=== PATIENT | male | born 1950 | race Caucasian/White ===

== ENCOUNTER 2020-03-10 14:12 | Outpatient (CLI) | payer MEDICARE, MEDICAID, SELFPAY ==
[2020-03-10 15:37] LABS: Basophils % 0.8 %; Eosinophils # 0.2 10^3/uL (0.0-0.8); Eosinophils % 5.3 %; Hematocrit 41.2 % (42.0-52.0); Hemoglobin 13.6 g/dL (11.7-16.6); Lymphocytes # 0.8 10^3/uL (0.8-4.8); Lymphocytes % 22.1 %; Mean Platelet Volume 9.7 fL (7.4-10.4); Monocytes # 0.3 10^3/uL (0.2-0.9); Neutrophils # 2.35 10^3/uL (1.8-7.7); Neutrophils % 62.5 %; Nucleated Red Blood Cells % 0 %; Platelet Count 194 10^3/cmm (130-400); Red Blood Count 4.12 10^6/uL (4.1-5.3); Red Cell Distribution Width 12.2 % (12.1-15.1); White Blood Count 3.8 10^3/uL (4.0-10.0)
[2020-03-10 16:42] LABS: Alanine Aminotransferase 11 U/L (0-41); Albumin Level 4.4 g/dL (3.5-5.2); Alkaline Phosphatase 76 IU/L (40-130); Anion Gap 15.9 (5-19); Aspartate Amino Transferase 33 U/L (0-40); Blood Urea Nitrogen 5 mg/dL (8-23); Calcium 8.7 mg/dL (8.5-10.5); Carbon Dioxide 26 mmol/L (22-29); Chloride 97 mmol/L (98-107); Globulin 2.8 g/dL (1.3-4.6); Glomerular Filtration Rate 84.2 mL/min (90-130); Glucose 88 mg/dL (65-115); Osmolality Calculated 275 mOsm/kg (285-295); Potassium 3.9 mmol/L (3.5-5.1); Sodium 135 mmol/L (136-145); Total Bilirubin 0.2 mg/dL (0.15-1.2); Total Protein 7.2 g/dL (6.6-8.7)
== END 2020-03-10 14:13 | disposition home or self-care (01) ==
LOC: LAB 14:17
PROVIDERS: Visit Provider Nurse Practitioner Family
DX: Z01.89 Encounter for other specified special examinations (principal)
CPT/HCPCS: 80053; 85025

== ENCOUNTER 2023-03-17 16:11 | Observation (INO) | payer MEDICARE, MEDICAID, SELFPAY ==
[2023-03-17] VITALS (42 sets, daily range): BP systolic 99–143; BP diastolic 60–90; PULSE 81–97; RESP 15–20; TEMP 36.2–37; O2SAT 88–100; BMI 13.8
--- NOTE | 2023-03-17 16:25 | XRR_ITS ---
PROCEDURE INFORMATION: Exam: XR Chest Exam date and time: 03/17/2023 5:14 PM Age: 72 years old Clinical indication: Shortness of breath; Additional info: SOB TECHNIQUE: Imaging protocol: Radiologic exam of the chest. Views: 1 view. COMPARISON: CR XR chest 1V [id number] 10/08/2016 10:06 AM FINDINGS: Lungs: Lungs are hyperinflated with changes of pulmonary emphysema. There is some interstitial infiltrate at the right lung base which could represent some superimposed infectious or inflammatory disease. Please correlate clinically. Pleural spaces: There are tiny bilateral pleural effusions. Heart/Mediastinum: Unremarkable. No cardiomegaly. Bones/joints: Unremarkable. XR/XR chest 1V portable [id number] IMPRESSION: 1. Pulmonary emphysema with hyperinflation of the lungs 2. Mild right basilar infiltrate 3. Small bilateral pleural effusions.
--- NOTE | 2023-03-17 16:28 | W.ED.GENADLT ---
Documented by User: Joaquin ArenasDO 03/17/23 18:08 HPI - General Adult General: Chief complaint: Shortness of Breath/Dyspnea Stated complaint: RESP DISTRESS Time Seen by Provider: 03/17/23 16:12 Source: patient and EMS Mode of arrival: EMS Limitations: no limitations History of Present Illness: This patient was transported via EMS to our emergency department. EMS gives a history that they were contacted by the fire control technician b. Apparently the fire control technician b and the computer security specialist's deputies have been checking on his gentleman who lives alone. The patient apparently does not have any air conditioning but does have fans within his house. Its not clear what he is heading to eat for the last 2 to 3 days or has access to drinking water. No one else lives in the home they called EMS today because they noted that he seemed to be less alert and less awake than usual. EMS arrived and found him to be cooperative and awake but clearly showing signs of dehydration however his blood sugar was in the normal range. The patient specifically denies alcohol or tobacco. He does have COPD and does apparently have home oxygen. He has never been seen at this facility previously. Associated symptoms: Reports confusion; Deny chest pain, dyspnea, nausea, rash, palpitations, syncope or vomiting Review of Systems Const: Denies: fever(s) or chills Eyes: Denies: change in vision ENMT: Denies: throat pain, odynophagia or nasal congestion Card: Denies: chest pain, palpitations, syncope or pre-syncope Resp: Reports: non-productive cough; Denies: dyspnea, productive cough or stridor GI: Denies: nausea, vomiting, diarrhea, hematochezia or melena : Reports: oliguria Musc: Denies: back pain, extremity pain or extremity swelling Skin/Breast: Denies: rash Neuro: Reports: confusion; Denies: numbness in extremities or weakness in extremities Physical Exam Narrative: EXAM NARRATIVE: The patient is alert very disheveled and unkept. Very thin appearing he does answer questions. Const: COMMON NORMALS: patient oriented x3 and alert GENERAL APPEARANCE: disheveled and appears older than stated age NUTRITIONAL APPEARANCE: thin ORIENTATION/CONSCIOUSNESS: Yes awake, Yes oriented to person and Yes oriented to place HENMT: COMMON NORMALS: atraumatic and Normal nasal mucous membranes and turbinates present HEAD & SCALP: atraumatic FACE & SINUS: face symmetric NOSE: Normal nasal mucous membranes and turbinates present OTHER: Mucous membranes are erythematous and very dry. No exudate. Eye: COMMON NORMALS: Equal, round and reactive pupils present, EOMs intact bilaterally and conjunctivae normal CONJUNCTIVA: Yes conjunctivae normal PUPIL: Yes Equal, round and reactive pupils present Neck/C-Spine: COMMON NORMALS: full ROM, supple, no JVD and No carotid bruits Chest: COMMONS NORMALS: normal inspection of the chest and normal palpation of entire chest wall Resp: COMMON NORMALS: normal respiratory effort, No retractions and No use of accessory muscles AUSCULTATION: diminished lung sounds (Bases bilaterally) Cardio: COMMON NORMALS: no JVD, regular rate, regular rhythm and Peripheral pulses 2+ throughout RATE: regular rate RHYTHM: regular rhythm PERIPHERAL PULSES: Peripheral pulses 2+ throughout GI: COMMON NORMALS: Normal to inspection, nondistended, normoactive bowel sounds present, Soft to palpation and non-tender INSPECTION: Yes scaphoid PALPATION: Yes Soft to palpation : COMMON NORMALS: Yes no CVA tenderness BLADDER/KIDNEY EXAM: Yes no CVA tenderness Back/Pelvis: COMMON NORMALS: no CVA tenderness, thoracic and lumbar spine normal to inspection, no thoracic nor lumbar tenderness, thoraco-lumbar ROM normal and straight leg raise negative bilaterally Extremity: COMMON NORMALS: normal to inspection, capillary refill normal, no calf tenderness and no pedal edema Neuro: COMMON NORMALS: patient oriented x3, moves all extremities and no sensory deficits noted SENSORIUM/ORIENTATION: Yes alert, Yes oriented to person and Yes oriented to place CRANIAL NERVES: Yes CN normal except as noted Psych: COMMON NORMALS: mental status grossly normal APPEARANCE: Yes unkempt and Yes disheveled ATTITUDE: Yes calm ACTIVITY/MOTOR BEHAVIOR: Yes appropriate eye contact THOUGHT PROCESS: Tangential thought process present Skin: NARRATIVE SKIN EXAM: Decreased skin turgor. 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 Course Reevaluation(s): Reevaluation #1: Remained stable work-up ongoing. The patient will be signed out to overnight emergency physician Dr. Gimenez. Time: 17:59 Vital Signs: Vital signs: Vital Signs Temperature 97.1 F L 03/17/23 17:50 Pulse Rate 84 03/17/23 20:16 Respiratory Rate 16 03/17/23 20:16 Blood Pressure 123/90 03/17/23 19:22 Pulse Oximetry 97 03/17/23 20:16 Oxygen Delivery Me thod Nasal Cannula 03/17/23 20:16 Oxygen Flow Rate 4 03/17/23 20:16 MDM - General Adult Medical Decision Making This gentleman was transported to the emergency department from by EMS. Local fire control technician b and Automotive Brake Specialist have been checking on him and noted that he seemed to be a little more confused today. He apparently lives in a home that has no air conditioning but apparently does have fans. He apparently has limited access to running water and has no family members that live close by as he lives by himself. EMS transported in the emergency department. He was noted to be extremely disheveled odiferous and unkept upon arrival. He received the benefit of general cleaning and a shower and we began a work-up to evaluate for possible rhabdomyolysis, occult infection etc. Lab Data I reviewed the patient's lab results. 03/17/23 17:12 03/17/23 17:12 Radiology Impressions Chest X-Ray 03/17/23 16:25 IMPRESSION: 1. Pulmonary emphysema with hyperinflation of the lungs 2. Mild right basilar infiltrate 3. Small bilateral pleural effusions. Head CT 03/17/23 18:07 IMPRESSION: No acute intracranial finding. Laboratory Results WBC 19.3 10^3/uL (4.0-10.0) H 03/17/23 17:12 RBC 4.84 10^6/uL (4.1-5.3) 03/17/23 17:12 Hgb 15.5 g/dL (11.7-16.6) 03/17/23 17:12 Hct 48.0 % (42.0-52.0) 03/17/23 17:12 MCV 99.2 fl (80-94) H 03/17/23 17:12 MCH 32.0 pg (28.0-34.0) 03/17/23 17:12 MCHC 32.3 g/dL (30.0-36.0) 03/17/23 17:12 RDW 12.6 % (12.1-15.1) 03/17/23 17:12 Plt Count 294 10^3/cmm (130-400) 03/17/23 17:12 MPV 9.6 fL (7.4-10.4) 03/17/23 17:12 Neut % (Auto) 90.0 % 03/17/23 17:12 Lymph % (Auto) 2.5 % 03/17/23 17:12 [place] % (Auto) 6.8 % 03/17/23 17:12 Eos % (Auto) 0.0 % 03/17/23 17:12 Baso % (Auto) 0.1 % 03/17/23 17:12 Neut # (Auto) 17.34 10^3/uL (1.8-7.7) H 03/17/23 17:12 Lymph # (Auto) 0.5 10^3/uL (0.8-4.8) L 03/17/23 17:12 [place] # (Auto) 1.3 10^3/uL (0.2-0.9) H 03/17/23 17:12 Eos # (Auto) 0.0 10^3/uL (0.0-0.8) 03/17/23 17:12 Baso # (Auto) 0.0 10^3/uL (0.0-0.1) 03/17/23 17:12 Nucleated RBC % (auto) 0 % 03/17/23 17:12 Nucleated RBCs # 0.0 /100WBC 03/17/23 17:12 Specimen Type Arterial 03/17/23 18:17 Sample Site Radial, left 03/17/23 18:17 ABG pH 7.34 (7.35-7.45) L 03/17/23 18:17 ABG pCO2 55.6 mmHg (35-45) H 03/17/23 18:17 ABG pO2 112.0 mmHg (80.0-100.0) H 03/17/23 18:17 ABG HCO3 29.6 mmol/L (22-26) H 03/17/23 18:17 ABG O2 Saturation 98.5 03/17/23 18:17 ABG Base Excess 2.4 mmol/L (-2.0-2.0) H 03/17/23 18:17 Shalom Test Pos 03/17/23 18:17 A-a O2 Gradient 9.9 mmHg (5-10) 03/17/23 18:17 Hematocrit 41.8 % (42-52) L 03/17/23 18:17 Hgb O2 Saturation 96.4 % (95-100) 03/17/23 18:17 Carboxyhemoglobin 1.8 %THgb (0.4-20.1) 03/17/23 18:17 Methemoglobin 0.4 % (0.4-1.5) 03/17/23 18:17 Total Hemoglobin 13.6 g/dL (14-18) L 03/17/23 18:17 Sodium 136.0 mmol/L (131-143) 03/17/23 18:17 Potassium 4.8 mmol/L (3.5-5.0) 03/17/23 18:17 Glucose 86.0 mg/dL (70-115) 03/17/23 18:17 Ionized Calcium 1.2 mmol/L (1.1-1.4) 03/17/23 18:17 O2 Delivery Device Nc 03/17/23 18:17 O2 Liters/Min 4.0 % 03/17/23 18:17 FiO2 36.0 % 03/17/23 18:17 Inspector Type ID Cak 03/17/23 18:17 Sodium 134 mmol/L (136-145) L 03/17/23 17:12 Potassium 5.2 mmol/L (3.5-5.1) H 03/17/23 17:12 Chloride 94 mmol/L (98-107) L 03/17/23 17:12 Carbon Dioxide 31 mmol/L (22-29) H 03/17/23 17:12 Anion Gap 14.2 (5-19) 03/17/23 17:12 BUN 74 mg/dL (8-23) H 03/17/23 17:12 Creatinine 1.6 mg/dL (0.7-1.2) H 03/17/23 17:12 GFR Calculation 42.9 mL/min (90-130) L 03/17/23 17:12 Glucose 84 mg/dL (65-115) 03/17/23 17:12 Calculated Osmolality 299 mOsm/kg (285-295) H 03/17/23 17:12 Lactic Acid 1.2 mmol/L (0.5-2.2) 03/17/23 18:43 Calcium 9.0 mg/dL (8.5-10.5) 03/17/23 17:12 Total Bilirubin 0.7 mg/dL (0.15-1.2) 03/17/23 17:12 AST 48 U/L (0-40) H 03/17/23 17:12 ALT 30 U/L (0-41) 03/17/23 17:12 Alkaline Phosphatase 118 U/L (40-130) 03/17/23 17:12 Creatine Kinase 224 U/L (39-308) 03/17/23 17:12 CK-MM (CK-3) Cancelled 03/17/23 17:12 CK-MB (CK-2) Cancelled 03/17/23 17:12 CK-BB (CK-1) Cancelled 03/17/23 17:12 Creatine Kinase Interp Cancelled 03/17/23 17:12 Total Protein 7.7 g/dL (6.6-8.7) 03/17/23 17:12 Albumin 3.3 g/dL (3.5-5.2) L 03/17/23 17:12 Globulin 4.4 g/dL (1.3-4.6) 03/17/23 17:12 Urine Color Arin (Yellow) 03/17/23 16:53 Urine Appearance Clear (CLEAR) 03/17/23 16:53 Urine pH 5 (5-7) 03/17/23 16:53 Ur Specific [place] 1.020 (1.005-1.030) 03/17/23 16:53 Urine Protein Trace (Negative) 03/17/23 16:53 Urine Glucose (UA) Norm (Normal) 03/17/23 16:53 Urine Ketones Negative (Negative) 03/17/23 16:53 Urine Blood Neg (Negative) 03/17/23 16:53 Urine Nitrate Negative (Negative) 03/17/23 16:53 Urine Bilirubin Neg (Negative) 03/17/23 16:53 Urine Urobilinogen 1 mg/dL (Negative) H 03/17/23 16:53 Ur Leukocyte Esterase Negative (Negative) 03/17/23 16:53 Urine RBC None /hpf (0-2) 03/17/23 16:53 Urine WBC 0-4 /hpf (0-5) H 03/17/23 16:53 Ur Squamous Epith Cells None /hpf (0-5) 03/17/23 16:53 Amorphous Sediment Not Reportable 03/17/23 16:53 Urine Bacteria Trace /hpf (NONE) 03/17/23 16:53 Hyaline Casts 5-10 /lpf H 03/17/23 16:53 Discharge Plan Discharge Patient Disposition: Placed in Observation Clinical Impression: Acute exacerbation of chronic obstructive airways disease, Community acquired pneumonia, Acute dehydration, Acute and chronic respiratory failure with hypercapnia Condition: Stable Coding Level of Care Code ED Nurses' Association Counselor for Niki Fwd Documented by User: Josiah Gimenez, DO 03/17/23 20:21 HPI - General Adult General: Chief complaint: Shortness of Breath/Dyspnea Stated complaint: RESP DISTRESS Time Seen by Provider: 03/17/23 16:12 Course Consultations: Consultation #1: Adonis Vital Signs: Vital signs: Vital Signs Temperature 97.1 F L 03/17/23 17:50 Pulse Rate 84 03/17/23 20:16 Respiratory Rate 16 03/17/23 20:16 Blood Pressure 123/90 03/17/23 19:22 Pulse Oximetry 97 03/17/23 20:16 Oxygen Delivery Me thod Nasal Cannula 03/17/23 20:16 Oxygen Flow Rate 4 03/17/23 20:16 MDM - General Adult Medical Decision Making This gentleman was transported to the emergency department from by EMS. Local fire control technician b and Automotive Brake Specialist have been checking on him and noted that he seemed to be a little more confused today. He apparently lives in a home that has no air conditioning but apparently does have fans. He apparently has limited access to running water and has no family members that live close by as he lives by himself. EMS transported in the emergency department. He was noted to be extremely disheveled odiferous and unkept upon arrival. He received the benefit of general cleaning and a shower and we began a work-up to evaluate for possible rhabdomyolysis, occult infection etc. This patient was checked out to me at shift change by the previous physician. He is afebrile. His vitals seem stable on 4 L nasal cannula. He is mildly confused. His white blood cell count is 19. His potassium is 5.2 creatinine of 1.6. He is given IV hydration. He has a mild right basilar infiltrate on chest x-ray. Lactic acid is normal. Blood cultures are pending. Urinalysis is negative. His CK is normal. Head CT shows no acute changes. Blood pH is 7.34 with an elevated PCO2. The patient does not seem to be struggling to breathe. He was given DuoNeb treatments and dexamethasone as well as IV antibiotics. He will be observed for acute kidney injury, pneumonia, dehydration, hyperkalemia. Hospitalist will see the patient in the ER. Lab Data 03/17/23 17:12 03/17/23 17:12 Radiology Impressions Chest X-Ray 03/17/23 16:25 IMPRESSION: 1. Pulmonary emphysema with hyperinflation of the lungs 2. Mild right basilar infiltrate 3. Small bilateral pleural effusions. Head CT 03/17/23 18:07 IMPRESSION: No acute intracranial finding. Laboratory Results WBC 19.3 10^3/uL (4.0-10.0) H 03/17/23 17:12 RBC 4.84 10^6/uL (4.1-5.3) 03/17/23 17:12 Hgb 15.5 g/dL (11.7-16.6) 03/17/23 17:12 Hct 48.0 % (42.0-52.0) 03/17/23 17:12 MCV 99.2 fl (80-94) H 03/17/23 17:12 MCH 32.0 pg (28.0-34.0) 03/17/23 17:12 MCHC 32.3 g/dL (30.0-36.0) 03/17/23 17:12 RDW 12.6 % (12.1-15.1) 03/17/23 17:12 Plt Count 294 10^3/cmm (130-400) 03/17/23 17:12 MPV 9.6 fL (7.4-10.4) 03/17/23 17:12 Neut % (Auto) 90.0 % 03/17/23 17:12 Lymph % (Auto) 2.5 % 03/17/23 17:12 [place] % (Auto) 6.8 % 03/17/23 17:12 Eos % (Auto) 0.0 % 03/17/23 17:12 Baso % (Auto) 0.1 % 03/17/23 17:12 Neut # (Auto) 17.34 10^3/uL (1.8-7.7) H 03/17/23 17:12 Lymph # (Auto) 0.5 10^3/uL (0.8-4.8) L 03/17/23 17:12 [place] # (Auto) 1.3 10^3/uL (0.2-0.9) H 03/17/23 17:12 Eos # (Auto) 0.0 10^3/uL (0.0-0.8) 03/17/23 17:12 Baso # (Auto) 0.0 10^3/uL (0.0-0.1) 03/17/23 17:12 Nucleated RBC % (auto) 0 % 03/17/23 17:12 Nucleated RBCs # 0.0 /100WBC 03/17/23 17:12 Specimen Type Arterial 03/17/23 18:17 Sample Site Radial, left 03/17/23 18:17 ABG pH 7.34 (7.35-7.45) L 03/17/23 18:17 ABG pCO2 55.6 mmHg (35-45) H 03/17/23 18:17 ABG pO2 112.0 mmHg (80.0-100.0) H 03/17/23 18:17 ABG HCO3 29.6 mmol/L (22-26) H 03/17/23 18:17 ABG O2 Saturation 98.5 03/17/23 18:17 ABG Base Excess 2.4 mmol/L (-2.0-2.0) H 03/17/23 18:17 Shalom Test Pos 03/17/23 18:17 A-a O2 Gradient 9.9 mmHg (5-10) 03/17/23 18:17 Hematocrit 41.8 % (42-52) L 03/17/23 18:17 Hgb O2 Saturation 96.4 % (95-100) 03/17/23 18:17 Carboxyhemoglobin 1.8 %THgb (0.4-20.1) 03/17/23 18:17 Methemoglobin 0.4 % (0.4-1.5) 03/17/23 18:17 Total Hemoglobin 13.6 g/dL (14-18) L 03/17/23 18:17 Sodium 136.0 mmol/L (131-143) 03/17/23 18:17 Potassium 4.8 mmol/L (3.5-5.0) 03/17/23 18:17 Glucose 86.0 mg/dL (70-115) 03/17/23 18:17 Ionized Calcium 1.2 mmol/L (1.1-1.4) 03/17/23 18:17 O2 Delivery Device Nc 03/17/23 18:17 O2 Liters/Min 4.0 % 03/17/23 18:17 FiO2 36.0 % 03/17/23 18:17 Inspector Type ID Cak 03/17/23 18:17 Sodium 134 mmol/L (136-145) L 03/17/23 17:12 Potassium 5.2 mmol/L (3.5-5.1) H 03/17/23 17:12 Chloride 94 mmol/L (98-107) L 03/17/23 17:12 Carbon Dioxide 31 mmol/L (22-29) H 03/17/23 17:12 Anion Gap 14.2 (5-19) 03/17/23 17:12 BUN 74 mg/dL (8-23) H 03/17/23 17:12 Creatinine 1.6 mg/dL (0.7-1.2) H 03/17/23 17:12 GFR Calculation 42.9 mL/min (90-130) L 03/17/23 17:12 Glucose 84 mg/dL (65-115) 03/17/23 17:12 Calculated Osmolality 299 mOsm/kg (285-295) H 03/17/23 17:12 Lactic Acid 1.2 mmol/L (0.5-2.2) 03/17/23 18:43 Calcium 9.0 mg/dL (8.5-10.5) 03/17/23 17:12 Total Bilirubin 0.7 mg/dL (0.15-1.2) 03/17/23 17:12 AST 48 U/L (0-40) H 03/17/23 17:12 ALT 30 U/L (0-41) 03/17/23 17:12 Alkaline Phosphatase 118 U/L (40-130) 03/17/23 17:12 Creatine Kinase 224 U/L (39-308) 03/17/23 17:12 CK-MM (CK-3) Cancelled 03/17/23 17:12 CK-MB (CK-2) Cancelled 03/17/23 17:12 CK-BB (CK-1) Cancelled 03/17/23 17:12 Creatine Kinase Interp Cancelled 03/17/23 17:12 Total Protein 7.7 g/dL (6.6-8.7) 03/17/23 17:12 Albumin 3.3 g/dL (3.5-5.2) L 03/17/23 17:12 Globulin 4.4 g/dL (1.3-4.6) 03/17/23 17:12 Urine Color Arin (Yellow) 03/17/23 16:53 Urine Appearance Clear (CLEAR) 03/17/23 16:53 Urine pH 5 (5-7) 03/17/23 16:53 Ur Specific [place] 1.020 (1.005-1.030) 03/17/23 16:53 Urine Protein Trace (Negative) 03/17/23 16:53 Urine Glucose (UA) Norm (Normal) 03/17/23 16:53 Urine Ketones Negative (Negative) 03/17/23 16:53 Urine Blood Neg (Negative) 03/17/23 16:53 Urine Nitrate Negative (Negative) 03/17/23 16:53 Urine Bilirubin Neg (Negative) 03/17/23 16:53 Urine Urobilinogen 1 mg/dL (Negative) H 03/17/23 16:53 Ur Leukocyte Esterase Negative (Negative) 03/17/23 16:53 Urine RBC None /hpf (0-2) 03/17/23 16:53 Urine WBC 0-4 /hpf (0-5) H 03/17/23 16:53 Ur Squamous Epith Cells None /hpf (0-5) 03/17/23 16:53 Amorphous Sediment Not Reportable 03/17/23 16:53 Urine Bacteria Trace /hpf (NONE) 03/17/23 16:53 Hyaline Casts 5-10 /lpf H 03/17/23 16:53 Discharge Plan Discharge Patient Disposition: Placed in Observation Clinical Impression: Acute exacerbation of chronic obstructive airways disease, Community acquired pneumonia, Acute dehydration, Acute and chronic respiratory failure with hypercapnia Condition: Stable Coding Level of Care Code ED Nurses' Association Counselor for Niki Urrutia
[2023-03-17] MEDS: lactated ringers 1,000 ML 999 ML IV (17:21)
[2023-03-17 17:22] LABS: Basophils % 0.1 %; Hemoglobin 15.5 g/dL (11.7-16.6); Lymphocytes # 0.5 10^3/uL (0.8-4.8); Lymphocytes % 2.5 %; Mean Corpuscular HGB Conc 32.3 g/dL (30.0-36.0); Mean Corpuscular Volume 99.2 fl (80-94); Mean Platelet Volume 9.6 fL (7.4-10.4); Monocytes # 1.3 10^3/uL (0.2-0.9); Monocytes % 6.8 %; Neutrophils # 17.34 10^3/uL (1.8-7.7); Nucleated Red Blood Cells % 0 %; Platelet Count 294 10^3/cmm (130-400); Red Blood Count 4.84 10^6/uL (4.1-5.3); Red Cell Distribution Width 12.6 % (12.1-15.1); White Blood Count 19.3 10^3/uL (4.0-10.0)
--- NOTE | 2023-03-17 18:01 | PC.NURSE ---
Pt was given a shower in the decon room by this RN and staff. Pt's wallet, phone, knife, keys, and loose pocket change and recipts were put in a bag and in patient's room. Pt placed in clean gown, brief, and socks.
[2023-03-17 18:06] LABS: Protein Urine Trace (Negative); Urine Appearance Clear (CLEAR); Urine Color Amber (Yellow); pH Urine 5 (5-7)
[2023-03-17 18:06] LABS: Alanine Aminotransferase 30 U/L (0-41); Albumin Level 3.3 g/dL (3.5-5.2); Alkaline Phosphatase 118 U/L (40-130); Anion Gap 14.2 (5-19); Aspartate Amino Transferase 48 U/L (0-40); Blood Urea Nitrogen 74 mg/dL (8-23); Carbon Dioxide 31 mmol/L (22-29); Chloride 94 mmol/L (98-107); Globulin 4.4 g/dL (1.3-4.6); Glomerular Filtration Rate 42.9 mL/min (90-130); Glucose 84 mg/dL (65-115); Osmolality Calculated 299 mOsm/kg (285-295); Potassium 5.2 mmol/L (3.5-5.1); Sodium 134 mmol/L (136-145); Total Bilirubin 0.7 mg/dL (0.15-1.2); Total Protein 7.7 g/dL (6.6-8.7)
[2023-03-17 18:07] LABS: Add Urine Culture? No; Add Urine Microscopic? YES; Bacteria Urine TRACE /hpf; Bilirubin Urine Neg (Negative); Blood Urine Neg (Negative); Glucose Urine UA Norm (Normal); Ketones Urine Negative (Negative); Leukocyte Esterase Urine Negative (Negative); Nitrate Urine Negative (Negative); Urobilinogen Urine 1 mg/dL (Negative); WBC Urine 0-4 /hpf (0-5)
--- NOTE | 2023-03-17 18:07 | CTR_ITS ---
PROCEDURE INFORMATION: Exam: CT Head Without Contrast Exam date and time: 03/17/2023 7:07 PM Age: 72 years old Clinical indication: Altered mental status/memory loss; Patient HX: Lethargy; Additional info: AMS TECHNIQUE: Imaging protocol: Computed tomography of the head without contrast. Radiation optimization: All CT scans at this facility use at least one of these dose optimization techniques: automated exposure control; mA and/or kV adjustment per patient size (includes targeted exams where dose is matched to clinical indication); or iterative reconstruction. REPORTING DATA: Count of CT and Cardiac NM exams in prior 12 months: This patient has received 0 known CTs and 0 known cardiac nuclear medicine studies in the 12 months prior to the current study. COMPARISON: No relevant prior studies available. RADIATION DOSE METRICS: Total DLP (mGy-cm): 1015.78 FINDINGS: Brain: There is moderate cortical atrophy. Low-density changes in the white matter are consistent with nonspecific small vessel chronic ischemic change. There is no intracranial mass, hemorrhage or edema. Cerebral ventricles: No ventriculomegaly. Paranasal sinuses: Visualized sinuses are unremarkable. No fluid levels. Mastoid air cells: Visualized mastoid air cells are well aerated. Bones/joints: Unremarkable. No acute fracture. Soft tissues: Unremarkable. CT/CT head wo con* [id number] IMPRESSION: No acute intracranial finding.
[2023-03-17 18:19] LABS: Creatine Phosphokinase 224 U/L (39-308)
--- NOTE | 2023-03-17 18:20 | ECG_ITS ---
[facility] Test Date: 2023-03-17 Pat Name: Yong Small Department: Room: Gender: Male Doughmaker: : 1950 Requested By: Joaquin Arenas Order Number: [id number] Shepherd MD: Gabriela Valenzuela M.D. Measurements Intervals [place] Rate: 88 P: 0 HI: 0 QRS: 89 QRSD: 76 T: -67 QT: 383 QTc: 464 Interpretive Statements SINUS RHYTHM WITH FREQUENT SUPRAVENTRICULAR PREMATURE COMPLEXES ST DEVIATION AND MODERATE T-WAVE ABNORMALITY, CONSIDER ANTERIOR ISCHEMIA [-0.1+ mV T-WAVE IN V3/V4] Compared to ECG 10/08/2016 10:04:39 T-wave abnormality now present Possible ischemia now present Sinus arrhythmia no longer present Prolonged QT interval no longer present Electronically Signed On 03-19-2023 6:47:02 CDT by Gabriela Valenzuela M.D. [id number]
[2023-03-17 18:28] LABS: ABG PCO2 55.6 mmHg (35-45); ABG PH Result 7.34 (7.35-7.45); Alveolar-Arterial Oxygen Gradi 9.9 mmHg (5-10); Arterial Blood Gas Hematocrit 41.8 % (42-52); Base Excess ABG 2.4 mmol/L (-2.0-2.0); Blood Gas Allen Test Pos; Blood Gas Operator Identificat CAK; Blood Gas Sample Site Radial, left; Blood Gas Sample Type Arterial; Carboxyhemoglobin 1.8 %THgb (0.4-20.1); HCO3 ABG 29.6 mmol/L (22-26); HGB O2 Sat 96.4 % (95-100); Ionized Calcium Level - ABG 1.2 mmol/L (1.1-1.4); Methemoglobin 0.4 % (0.4-1.5); Oxygen Device NC; Oxygen Saturation ABG 98.5; Potassium Level - ABG 4.8 mmol/L (3.5-5.0); Total Hemoglobin 13.6 g/dL (14-18)
[2023-03-17] MEDS: cefTRIAXone 1,000 MG in sodium chloride 0.9% (plus) 50 ML 100 MG IV (19:18)
[2023-03-17 19:39] LABS: Lactic Sepsis W/Reflex 1.2 mmol/L (0.5-2.2)
[2023-03-17] MEDS: dexamethasone 10 mg/mL INJ IVP (19:49)
[2023-03-17] MEDS: azithromycin 500 MG in sodium chloride 0.9% 250 ML 250 MG IV (19:49)
--- NOTE | 2023-03-17 20:01 | P.HP_ITS ---
Providers/Chief Complaint Admitting Physician: Alma Lamb MD Primary Care Provider: APARNA Brasher Chief Complaint: RESP DISTRESS History of Present Illness Yong Small is a 72 year old male who was brought to the emergency room by EMS for confusion and difficulty breathing. Mr. Samll lives alone evidently on a property that does not have running water. The Trust Vault Clerk in the area lives near him and takes him water regularly and checks on him frequently as has been told to me particularly in time such as the last couple of days when it is really hot out. The [employer] Clerk and noted that he did not drink any of the water that he been given the day before and knew that something was not right. The broadcast operations technician's department was contacted for welfare check. Evidently when they arrived he was not as alert as he usually is and seem to be having difficulty breathing. He clinically looked dehydrated. He has known COPD and is on home oxygen. I admitted him back in 2017 here and was able to review records from then. They were primarily notable for COPD exacerbation, and echocardiogram showing an ejection fraction of 65% with grade 1/4 diastolic dysfunction and an unclear social situation at the time. He reports feeling cold and feverish. He has had a cough and difficulty breathing. No report of any chest pain but does describe aching all over. Getting specifics of history is difficult at this time. He seems to know who he is and I think where he is but not why he is here. Patient is on oxygen at home with an oxygen concentrator. From the information that was provided to me the oxygen concentrator was not working appropriately. He does have electricity for the oxygen concentrator. It sounds like he may not of had oxygen on when he was evaluated at his home. Review of Systems General: Reports: Other (ROS as per HPI or as otherwise noted here; limited by current confusion) Medications/Allergies Home Medications Medication Instructions Recorded Confirmed Last Taken Type albuterol sulfate 90 mcg/actuation 2 puff inhalation Q4H PRN 03/18/23 03/18/23 Unknown History aerosol inhaler (Ventolin HFA) Shortness Of Breath budesonide-formoterol HFA 160 2 puff inhalation BID 03/18/23 03/18/23 Unknown History mcg-4.5 mcg/actuation aerosol inhaler (Symbicort) cetirizine 10 mg tablet 10 mg PO DAILY 03/18/23 03/18/23 Unknown History ipratropium 20 mcg-albuterol 100 1 puff inhalation QID PRN 03/18/23 03/18/23 Unknown History mcg/actuation mist for inhalation Shortness Of Breath (Combivent Respimat) omeprazole 20 mg capsule,delayed 20 mg PO DAILY 03/18/23 03/18/23 Unknown History release potassium chloride 8 mEq 8 meq PO DAILY 03/18/23 03/18/23 Unknown History capsule,extended release tiotropium bromide 18 mcg capsule 1 cap inhalation DAILY 03/18/23 03/18/23 Unknown History with inhalation device (Spiriva with HandiHaler) Allergies Allergy/AdvReac Type Severity Reaction Status Date / Time No Known Allergies Allergy Verified 03/17/23 20:48 PFSH Acute PFSH: Medical History COPD (chronic obstructive pulmonary disease) History of echocardiogram 2017 EF 65%, grade I/IV diastolic dysfunction History of smoking Surgical History (Updated 03/18/23 @ 04:01 by Alma Lamb MD) No history of previous surgery Family History (Updated 03/18/23 @ 04:01 by Alma Lamb MD) Mother CAD (coronary artery disease) Social History (Updated 03/18/23 @ 04:18 by Alma Lamb MD) Smoking and tobacco status: former smoker Alcohol intake: unknown Substance/Drug Use: unknown Household members: none Additional social history: Lives in a house without running water, a neighbor brings him water. He has electricity. Vitals/I&O/Wt Last Vital Signs Temp 97.1 F L 03/17/23 17:50 Pulse 91 03/17/23 19:22 Resp 18 03/17/23 19:22 BP 123/90 03/17/23 19:22 Pulse Ox 92 03/17/23 19:22 O2 Del Method Nasal Cannula 03/17/23 19:22 O2 Flow Rate 4 03/17/23 19:22 03/17/23 03/17/23 03/17/23 06:59 14:59 22:59 Intake Total 1050 / 1050 Balance 1050 / 1050 Weight last 48 hrs Weight 41.277 kg Physical Exam 2 Narrative: Patient is asleep, arousable. He answers simple questions but not able to provide detailed answers. Oriented to person and I believe to place but not to situation. He has a thin build. Some bitemporal wasting is noted. Pupils are equally reactive. Oropharynx with dry mucous membranes. Neck is supple. Lungs are remarkable for some expiratory wheezes bilaterally, mild supraclavicular retractions, pursed lips. Breath sounds are decreased at both bases. No rhonchi are noted. Cardiovascular exam reveals a regular rate and rhythm. Puls es are 2+ and equal x4. Abdomen is soft, positive bowel sounds. No pitting edema. Patient is tender to touch wherever you touch them. Capillary refill is brisk. He has various minor sores in different stages of healing predominantly on extensor surfaces. No involuntary movements noted. Moves all extremities. Data 03/17/23 17:12 03/17/23 17:12 Other Labs: Radiology Impressions Chest X-Ray 03/17/23 16:25 IMPRESSION: 1. Pulmonary emphysema with hyperinflation of the lungs 2. Mild right basilar infiltrate 3. Small bilateral pleural effusions. Head CT 03/17/23 18:07 IMPRESSION: No acute intracranial finding. Laboratory Results WBC 19.3 10^3/uL (4.0-10.0) H 03/17/23 17:12 RBC 4.84 10^6/uL (4.1-5.3) 03/17/23 17:12 Hgb 15.5 g/dL (11.7-16.6) 03/17/23 17:12 Hct 48.0 % (42.0-52.0) 03/17/23 17:12 MCV 99.2 fl (80-94) H 03/17/23 17:12 MCH 32.0 pg (28.0-34.0) 03/17/23 17:12 MCHC 32.3 g/dL (30.0-36.0) 03/17/23 17:12 RDW 12.6 % (12.1-15.1) 03/17/23 17:12 Plt Count 294 10^3/cmm (130-400) 03/17/23 17:12 MPV 9.6 fL (7.4-10.4) 03/17/23 17:12 Neut % (Auto) 90.0 % 03/17/23 17:12 Lymph % (Auto) 2.5 % 03/17/23 17:12 Bell % (Auto) 6.8 % 03/17/23 17:12 Eos % (Auto) 0.0 % 03/17/23 17:12 Baso % (Auto) 0.1 % 03/17/23 17:12 Neut # (Auto) 17.34 10^3/uL (1.8-7.7) H 03/17/23 17:12 Lymph # (Auto) 0.5 10^3/uL (0.8-4.8) L 03/17/23 17:12 Bell # (Auto) 1.3 10^3/uL (0.2-0.9) H 03/17/23 17:12 Eos # (Auto) 0.0 10^3/uL (0.0-0.8) 03/17/23 17:12 Baso # (Auto) 0.0 10^3/uL (0.0-0.1) 03/17/23 17:12 Nucleated RBC % (auto) 0 % 03/17/23 17:12 Nucleated RBCs # 0.0 /100WBC 03/17/23 17:12 Specimen Type Arterial 03/17/23 18:17 Sample Site Radial, left 03/17/23 18:17 ABG pH 7.34 (7.35-7.45) L 03/17/23 18:17 ABG pCO2 55.6 mmHg (35-45) H 03/17/23 18:17 ABG pO2 112.0 mmHg (80.0-100.0) H 03/17/23 18:17 ABG HCO3 29.6 mmol/L (22-26) H 03/17/23 18:17 ABG O2 Saturation 98.5 03/17/23 18:17 ABG Base Excess 2.4 mmol/L (-2.0-2.0) H 03/17/23 18:17 Shalom Test Pos 03/17/23 18:17 A-a O2 Gradient 9.9 mmHg (5-10) 03/17/23 18:17 Hematocrit 41.8 % (42-52) L 03/17/23 18:17 Hgb O2 Saturation 96.4 % (95-100) 03/17/23 18:17 Carboxyhemoglobin 1.8 %THgb (0.4-20.1) 03/17/23 18:17 Methemoglobin 0.4 % (0.4-1.5) 03/17/23 18:17 Total Hemoglobin 13.6 g/dL (14-18) L 03/17/23 18:17 Sodium 136.0 mmol/L (131-143) 03/17/23 18:17 Potassium 4.8 mmol/L (3.5-5.0) 03/17/23 18:17 Glucose 86.0 mg/dL (70-115) 03/17/23 18:17 Ionized Calcium 1.2 mmol/L (1.1-1.4) 03/17/23 18:17 O2 Delivery Device Nc 03/17/23 18:17 O2 Liters/Min 4.0 % 03/17/23 18:17 FiO2 36.0 % 03/17/23 18:17 Tourist Cabin Keeper ID Cak 03/17/23 18:17 Sodium 134 mmol/L (136-145) L 03/17/23 17:12 Potassium 5.2 mmol/L (3.5-5.1) H 03/17/23 17:12 Chloride 94 mmol/L (98-107) L 03/17/23 17:12 Carbon Dioxide 31 mmol/L (22-29) H 03/17/23 17:12 Anion Gap 14.2 (5-19) 03/17/23 17:12 BUN 74 mg/dL (8-23) H 03/17/23 17:12 Creatinine 1.6 mg/dL (0.7-1.2) H 03/17/23 17:12 GFR Calculation 42.9 mL/min (90-130) L 03/17/23 17:12 Glucose 84 mg/dL (65-115) 03/17/23 17:12 Calculated Osmolality 299 mOsm/kg (285-295) H 03/17/23 17:12 Lactic Acid 1.2 mmol/L (0.5-2.2) 03/17/23 18:43 Calcium 9.0 mg/dL (8.5-10.5) 03/17/23 17:12 Total Bilirubin 0.7 mg/dL (0.15-1.2) 03/17/23 17:12 AST 48 U/L (0-40) H 03/17/23 17:12 ALT 30 U/L (0-41) 03/17/23 17:12 Alkaline Phosphatase 118 U/L (40-130) 03/17/23 17:12 Creatine Kinase 224 U/L (39-308) 03/17/23 17:12 Total Protein 7.7 g/dL (6.6-8.7) 03/17/23 17:12 Albumin 3.3 g/dL (3.5-5.2) L 03/17/23 17:12 Globulin 4.4 g/dL (1.3-4.6) 03/17/23 17:12 Urine Color Arin (Yellow) 03/17/23 16:53 Urine Appearance Clear (CLEAR) 03/17/23 16:53 Urine pH 5 (5-7) 03/17/23 16:53 Ur Specific [place] 1.020 (1.005-1.030) 03/17/23 16:53 Urine Protein Trace (Negative) 03/17/23 16:53 Urine Glucose (UA) Norm (Normal) 03/17/23 16:53 Urine Ketones Negative (Negative) 03/17/23 16:53 Urine Blood Neg (Negative) 03/17/23 16:53 Urine Nitrate Negative (Negative) 03/17/23 16:53 Urine Bilirubin Neg (Negative) 03/17/23 16:53 Urine Urobilinogen 1 mg/dL (Negative) H 03/17/23 16:53 Ur Leukocyte Esterase Negative (Negative) 03/17/23 16:53 Urine RBC None /hpf (0-2) 03/17/23 16:53 Urine WBC 0-4 /hpf (0-5) H 03/17/23 16:53 Ur Squamous Epith Cells None /hpf (0-5) 03/17/23 16:53 Amorphous Sediment Not Reportable 03/17/23 16:53 Urine Bacteria Trace /hpf (NONE) 03/17/23 16:53 Hyaline Casts 5-10 /lpf H 03/17/23 16:53 Micro: Microbiology 03/17/23 18:43 Blood Culture - Preliminary Blood SPECIMEN COLLECTED 03/17/23 18:43 Blood Culture - Preliminary Blood SPECIMEN COLLECTED A&P Assessment and plan (1) Altered mental status: Somnolence with confusion, multifactorial from hypercapnia along with metabolic influences from dehydration and acute kidney injury (2) Acute kidney injury: Secondary to dehydration, heat and prerenal processes. Has some associated hyperkalemia but was recently prescribed potassium replacement by primary care provider. Making urine. (3) Community acquired pneumonia: Right lower lobe, organism unknown, present on admission. Has associated leukocytosis with left shift and lymphopenia noted. Not meeting criteria for sepsis at the time of admission as renal dysfunction and alteration mental status attributable to an other cause at this time rather than infection. Hypoxemia and hypercapnia also could be more secondary to lack of oxygen therapy. (4) Acute exacerbation of chronic obstructive airways disease: With acutely worsening hypercapnia and hypoxemia today due to combination of pneumonia as well as at least a transient lack of oxygen from an oxygen concentrator that may not have been working appropriately (5) Acute dehydration: Present on admission, severe, related to heat and lack of water intake the last couple of days Plan EKG computerized interpretation of atrial fibrillation - I am unable to personally visualize EKG in the EMR due to a computer problem; on examination patient has a regular rhythm. No known history of atrial fibrillation. Observation admission IV fluids Monitor I's and O's closely Repeat electrolytes in the morning Rocephin and azithromycin Blood cultures have been collected Check COVID PCR Check Legionella antigen Check procalcitonin Breathing treatments Inhaled and systemic steroids Case management to assist in determining who his home oxygen concentrator provider is and if they can check to see if it is still working prior to dispositioning Supportive care otherwise Hopefully with treatment he will be less confused and will be able to explain to him reasons for hospitalization and plans of care in a way that he will un derstand. Currently he wants to be left alone and under the covers. VTE prophylaxis: Lovenox at renal dosing initially GI Prophylaxis: PPI Telemetry: I have ordered telemetry monitoring secondary to EKG, which I am not currently able to personally visualize secondary to computer problem, showing a trial fibrillation initially with examination findings of regular rhythm Chambers: Not currently needed but if renal function does not improve with hydration will need to consider Line(s): Peripheral IVs Disposition plan: Anticipate discharge home with outpatient follow-up. While his home does not have running water that is a choice he has actively made. He does have neighbors to deliver water to him and check on him. Will need to determine if his oxygen concentrator is working secondary to the history provided. Code Status: Full code Attestations Medical Necessity Statement*: Currently anticipate a stay less than two midnights in this gentleman who presents with altered mental status that is multifactorial secondary to hypercapnia and hypoxemia from being off of oxygen at least transiently and from having acute kidney injury related to heat and lack of water intake. He is receiving appropriate respiratory management with oxygen, breathing treatments and only IV antibiotics for pneumonia along with steroids. He is also receiving IV fluids. Will reevaluate after treatment. and Moderate Time for a total of 50 minutes, includes reviewing past or interval history, examining/interviewing patient, placing orders, discussing plan of care with staff and documenting encounter Diagnoses Altered mental status R41.82 Acute kidney injury N17.9 Community acquired pneumonia J18.9 Acute exacerbation of chronic obstructive airways disease J44.1 Acute dehydration E86.0
[2023-03-17] MEDS: ipratropium-albuterol 3 mL Neb INHALATION (20:15)
[2023-03-17] MEDS: sodium chloride 0.9% 1,000 ML 999 ML IV (21:16)
[2023-03-18] VITALS (14 sets, daily range): BP systolic 104–149; BP diastolic 45–79; PULSE 71–117; RESP 14–20; TEMP 36.3–37.2; O2SAT 90–99
[2023-03-18] MEDS: sodium chloride 0.9% 1,000 ML 100 ML IV ×3 (00:59→21:14)
[2023-03-18] MEDS: enoxaparin 30 mg/0.3 mL Syringe SUBCUT (01:00)
[2023-03-18] MEDS: ipratropium-albuterol 3 mL Neb INHALATION ×4 (01:22→19:51)
[2023-03-18 04:10] LABS: Adenovirus Not Detected (NOT DETECT); Chlamydia Pneumoniae Not Detected (NOT DETECT); Coronavirus 229E,HKU1,NL63,OC4 Not Detected (NOT DETECT); Human Metapneumovirus Not Detected (NOT DETECT); Human Rhinovirus/Enterovirus Not Detected (NOT DETECT); Influenza A Not Detected (NOT DETECT); Influenza A H1 Not Detected (NOT DETECT); Influenza A H1-2009 Not Detected (NOT DETECT); Influenza A H3 Not Detected (NOT DETECT); Influenza B Not Detected (NOT DETECT); Mycoplasma Pneumoniae Not Detected (NOT DETECT); Parainfluenza Virus Type 1 Not Detected (NOT DETECT); Parainfluenza Virus Type 2 Not Detected (NOT DETECT); Parainfluenza Virus Type 3 Not Detected (NOT DETECT); Parainfluenza Virus Type 4 Not Detected (NOT DETECT); Respiratory Syncytial Virus A Not Detected (NOT DETECT); Respiratory Syncytial Virus B Not Detected (NOT DETECT); SARS-COV-2 Not Detected (NOT DETECT)
[2023-03-18 04:58] LABS: Basophils % 0.1 %; Hematocrit 40.7 % (42.0-52.0); Lymphocytes # 0.2 10^3/uL (0.8-4.8); Lymphocytes % 1.5 %; Mean Corpuscular HGB Conc 31.9 g/dL (30.0-36.0); Mean Corpuscular Hemoglobin 33.4 pg (28.0-34.0); Mean Corpuscular Volume 104.6 fl (80-94); Mean Platelet Volume 9.8 fL (7.4-10.4); Monocytes # 0.1 10^3/uL (0.2-0.9); Monocytes % 0.7 %; Neutrophils # 14.24 10^3/uL (1.8-7.7); Neutrophils % 96.8 %; Nucleated Red Blood Cells % 0 %; Platelet Count 238 10^3/cmm (130-400); Red Blood Count 3.89 10^6/uL (4.1-5.3); Red Cell Distribution Width 12.7 % (12.1-15.1); White Blood Count 14.7 10^3/uL (4.0-10.0)
[2023-03-18 05:25] LABS: Procalcitonin 0.36 ng/mL (0-0.5)
[2023-03-18 05:27] LABS: Alanine Aminotransferase 20 U/L (0-41); Albumin Level 2.9 g/dL (3.5-5.2); Alkaline Phosphatase 91 U/L (40-130); Aspartate Amino Transferase 36 U/L (0-40); Blood Urea Nitrogen 54 mg/dL (8-23); Calcium 8.1 mg/dL (8.5-10.5); Carbon Dioxide 29 mmol/L (22-29); Chloride 101 mmol/L (98-107); Glomerular Filtration Rate 73.9 mL/min (90-130); Glucose 91 mg/dL (65-115); Osmolality Calculated 300 mOsm/kg (285-295); Sodium 138 mmol/L (136-145); Total Bilirubin 0.3 mg/dL (0.15-1.2); Total Protein 5.9 g/dL (6.6-8.7)
[2023-03-18 05:33] LABS: Anion Gap 13.8 (5-19); Potassium 5.8 mmol/L (3.5-5.1)
[2023-03-18] MEDS: cetirizine 10 mg Tablet PO (08:38)
[2023-03-18] MEDS: docusate sodium 100 mg Capsule PO ×2 (08:38→17:36)
[2023-03-18] MEDS: predniSONE 20 mg Tablet 40 MG PO (08:38)
[2023-03-18] MEDS: pantoprazole DR 40 mg Tablet PO (08:38)
[2023-03-18] MEDS: budesonide 0.5 mg/2 mL Neb INHALATION ×2 (08:38→19:51)
--- NOTE | 2023-03-18 14:36 | P.PN_ITS ---
Subjective Subjective: Melina is currently awake, self-feeding, oriented to time place and person. He has been giving varying history. He tells me that he lives with 10 cats in his home and has not eaten in 2 weeks as he has been preferentially feeding his food to his cats. States that he has had no water in his house and he posted a sign outside of his home that he needs drinking water hoping that the community would help him. The local fire department has been bringing him drinking water. He does have electricity in his home. He told me that he makes his own meals. However to the corrections caseworker he reports that he has been eating very well at home. He told the corrections caseworker that he does not need to live in his home. Unable to ascertain if patient is confused or if this may be his baseline personality given his variable history. He is on 4 L/min supplemental O2 which is his home requirement. He is noted to be coughing, brings up some phlegm. Denies any dyspnea currently. States that he is hungry and wishes to eat. Medications: Reviewed: Yes Vitals/I&O/Wt Last Vital Signs Temp 98.0 F 03/18/23 12:00 Pulse 77 03/18/23 13:40 Resp 17 03/18/23 13:30 BP 104/51 03/18/23 12:00 Pulse Ox 94 03/18/23 13:30 O2 Del Method Nasal Cannula 03/18/23 13:30 O2 Flow Rate 4 03/18/23 13:30 03/17/23 03/18/23 03/18/23 22:59 06:59 14:59 Intake Total 2300 / 2300 1240 / 1240 Output Total 750 / 750 Balance 2300 / 2300 490 / 490 Weight last 48 hrs Weight 41.277 kg Physical Exam Narrative: General: No acute distress, AO x3 he appears to be disheveled,, hard of hearing HEENT: PERRLA, pupils bilaterally equal and reactive, pallors not present Chest: Normal vesicular breath sounds, no added sounds, equal good air entry bilaterally CVS: S1-S2 regular, no murmurs, no tachycardia, no gallops, no rubs Abdomen: Soft, nontender, no organomegaly, bowel sounds present Neuro: No focal deficits, no facial deformity, AO x3, power 5/5 in all limbs Data 03/18/23 04:23 03/18/23 04:23 Micro: Microbiology 03/18/23 00:50 Legionella Urinary Antigen - Final Urine,Clean Catch 03/17/23 18:43 Blood Culture - Preliminary Blood SPECIMEN COLLECTED 03/17/23 18:43 Blood Culture - Preliminary Blood SPECIMEN COLLECTED A&P Assessment and plan (1) Altered mental status: Somnolence with confusion appears to be improving. Patient is currently alert and awake. However he gives variable history, I am uncertain if this is his personality currently still exhibiting some confusion. Likely that his AMS overnight was multifactorial from hypercapnia along with metabolic influences from dehydration and acute kidney injury. (2) Acute kidney injury: Secondary to dehydration, heat and prerenal processes. Creatinine currently improving to 1.0 today. With hydration. (3) Community acquired pneumonia: Right lower lobe, organism unknown, present on admission. Has associated leukocytosis with left shift and lymphopenia noted. Continue empiric antibiotics with ceftriaxone and azithromycin Blood cultures have been collected Negative COVID PCR Negative Legionella antigen (4) Acute exacerbation of chronic obstructive airways disease: With acutely worsening hypercapnia and hypoxemia today due to combination of pneumonia as well as at least a transient lack of oxygen from an oxygen concentrator that may not have been working appropriately Continue scheduled DuoNeb and budesonide inhalation Continue prednisone 40 mg p.o. daily (5) Acute dehydration: Present on admission, severe, related to heat and lack of water intake the last couple of days Continue normal saline at 100 cc an hour Plan VTE prophylaxis: Lovenox at renal dosing initially GI Prophylaxis: PPI Disposition plan: Anticipate discharge home with outpatient follow-up. While his home does not have running water that is a choice he has actively made. He does have neighbors to deliver water to him and check on him. Will need to determine if his oxygen concentrator is working secondary to the history provided. Continue IV antibiotics and IV hydration today Code Status: Full code Attestations Medical Necessity Statement*: Continued need of IV antibiotics and IV fluids today, assess baseline mentation. Coding Level of Care Code Acute Code for Chg Fwd Moderate MDM includes number and complexity of problems actively addressed during encounter, amount and/or complexity of data reviewed/ordered and descr ibed risk of complication, morbidity or mortality of management as documented Diagnoses Altered mental status R41.82 Acute kidney injury N17.9 Community acquired pneumonia J18.9 Acute exacerbation of chronic obstructive airways disease J44.1 Acute dehydration E86.0
[2023-03-18] MEDS: cefTRIAXone 1,000 MG in sodium chloride 0.9% (plus) 50 ML 100 MG IV (17:36)
[2023-03-18] MEDS: azithromycin 500 MG in sodium chloride 0.9% 250 ML 250 MG PO (21:14)
[2023-03-18] MEDS: enoxaparin 40 mg/0.4 mL Syringe 30 MG SUBCUT (21:17)
[2023-03-19] VITALS (13 sets, daily range): BP systolic 113–139; BP diastolic 67–76; PULSE 72–94; RESP 16–19; TEMP 36.5–37.1; O2SAT 92–99
[2023-03-19 05:05] LABS: Basophils % 0.1 %; Hematocrit 39.8 % (42.0-52.0); Hemoglobin 12.4 g/dL (11.7-16.6); Lymphocytes # 0.4 10^3/uL (0.8-4.8); Lymphocytes % 2.2 %; Mean Corpuscular HGB Conc 31.2 g/dL (30.0-36.0); Mean Corpuscular Hemoglobin 32.9 pg (28.0-34.0); Mean Corpuscular Volume 105.6 fl (80-94); Monocytes # 0.9 10^3/uL (0.2-0.9); Monocytes % 5.2 %; Neutrophils # 16.35 10^3/uL (1.8-7.7); Neutrophils % 91.6 %; Nucleated Red Blood Cells % 0 %; Platelet Count 217 10^3/cmm (130-400); Red Blood Count 3.77 10^6/uL (4.1-5.3); Red Cell Distribution Width 12.7 % (12.1-15.1); White Blood Count 17.9 10^3/uL (4.0-10.0)
[2023-03-19 05:31] LABS: Alanine Aminotransferase 15 U/L (0-41); Albumin Level 2.7 g/dL (3.5-5.2); Alkaline Phosphatase 80 U/L (40-130); Anion Gap 6.9 (5-19); Aspartate Amino Transferase 21 U/L (0-40); Blood Urea Nitrogen 33 mg/dL (8-23); Calcium 8.4 mg/dL (8.5-10.5); Carbon Dioxide 35 mmol/L (22-29); Chloride 102 mmol/L (98-107); Glomerular Filtration Rate 111.5 mL/min (90-130); Glucose 140 mg/dL (65-115); Osmolality Calculated 298 mOsm/kg (285-295); Potassium 4.9 mmol/L (3.5-5.1); Sodium 139 mmol/L (136-145); Total Bilirubin 0.2 mg/dL (0.15-1.2); Total Protein 5.7 g/dL (6.6-8.7)
[2023-03-19] MEDS: sodium chloride 0.9% 1,000 ML 100 ML IV ×2 (07:05→16:59)
[2023-03-19] MEDS: ipratropium-albuterol 3 mL Neb INHALATION ×3 (08:43→20:01)
[2023-03-19] MEDS: budesonide 0.5 mg/2 mL Neb INHALATION ×2 (08:43→20:01)
[2023-03-19] MEDS: docusate sodium 100 mg Capsule PO (08:48)
[2023-03-19] MEDS: predniSONE 20 mg Tablet 40 MG PO (08:48)
[2023-03-19] MEDS: cetirizine 10 mg Tablet PO (08:48)
[2023-03-19] MEDS: pantoprazole DR 40 mg Tablet PO (08:49)
--- NOTE | 2023-03-19 15:31 | PC.NURSE ---
Pt states to add nephew to contact infor. Will Small [phone]
[2023-03-19] MEDS: cefTRIAXone 1,000 MG in sodium chloride 0.9% (plus) 50 ML 100 MG IV (18:00)
--- NOTE | 2023-03-19 18:20 | P.PN_ITS ---
Subjective Subjective: No new complaints today. He is tearful at the thought of going home. Wishes to change his living conditions and agreeable to transition to SNF if able Medications: Reviewed: Yes Vitals/I&O/Wt Last Vital Signs Temp 98.2 F 03/19/23 16:00 Pulse 90 03/19/23 16:00 Resp 17 03/19/23 16:00 BP 126/71 03/19/23 16:00 Pulse Ox 96 03/19/23 16:00 O2 Del Method Nasal Cannula 03/19/23 12:55 O2 Flow Rate 3.5 03/19/23 12:55 03/19/23 03/19/23 03/19/23 06:59 14:59 22:59 Intake Total 1465 / 1465 990 / 2455 Output Total 300 / 1200 Balance -300 / 1510 1465 / 1465 990 / 2455 Physical Exam Narrative: General: No acute distress, AO x3 he appears to be disheveled,, hard of hearing HEENT: PERRLA, pupils bilaterally equal and reactive, pallors not present Chest: Normal vesicular breath sounds, no added sounds, equal good air entry bilaterally CVS: S1-S2 regular, no murmurs, no tachycardia, no gallops, no rubs Abdomen: Soft, nontender, no organomegaly, bowel sounds present Neuro: No focal deficits, no facial deformity, AO x3, power 5/5 in all limbs Data 03/19/23 04:23 03/19/23 04:23 Micro: Microbiology 03/17/23 18:43 Blood Culture - Preliminary Blood Staphylococcus sp coag neg 03/17/23 18:43 Blood Culture - Preliminary Blood NEGATIVE TO DATE A&P Assessment and plan (1) Altered mental status: Now resolved, patient is back at his baseline mentation, confirmed by his brother that patient is baseline (2) Acute kidney injury: Secondary to dehydration, heat and prerenal processes. Improving (3) Community acquired pneumonia: Right lower lobe, organism unknown, present on admission. Has associated nuvia kocytosis with left shift and lymphopenia noted. Continue empiric antibiotics with ceftriaxone and azithromycin Blood cultures have been collected, 1 out of 4 bottles reported positive for coag negative staph, suspect contamination Negative COVID PCR Negative Legionella antigen (4) Acute exacerbation of chronic obstructive airways disease: With acutely worsening hypercapnia and hypoxemia due to combination of pneumonia as well as at least a transient lack of oxygen from an oxygen concentrator that may not have been working appropriately Continue scheduled DuoNeb and budesonide inhalation Continue prednisone 40 mg p.o. daily, suspect steroids may be contributing to some persisting leukocytosis (5) Acute dehydration: Present on admission, severe, related to heat and lack of water intake the last couple of days Continue normal saline at 100 cc an hour, encourage p.o. intake Plan VTE prophylaxis: Lovenox at renal dosing initially GI Prophylaxis: PPI Change to inpatient admission given persistent leukocytosis, treatment of community-acquired pneumonia with IV antibiotics, dehydration needing IV fluids, appropriate disposition planning, recheck blood cultures with a.m. labs. PT / OT assessment Disposition plan: Patient has not had any running water in his home recently. Alan levy appears to be disabled, cachectic with BMI of only 13.8. He is unable to answer specific questions regarding how he is managing his meals. Tearfully admits today that he is not able to manage alone at home. Agreeable to potential transfer to residential facility. Code Status: Full code Attestations Medical Necessity Statement*: Ongoing appropriate disposition planning, iv abx and fluids Coding Level of Care Code Acute Code for Chg Fwd Diagnoses Altered mental status R41.82 Acute kidney injury N17.9 Community acquired pneumonia J18.9 Acute exacerbation of chronic obstructive airways disease J44.1 Acute dehydration E86.0
[2023-03-19] MEDS: azithromycin 500 MG in sodium chloride 0.9% 250 ML 250 MG PO (19:19)
[2023-03-19] MEDS: enoxaparin 40 mg/0.4 mL Syringe SUBCUT (20:24)
[2023-03-19] MEDS: acetaminophen 325 mg Tablet 650 MG PO (23:53)
[2023-03-20] VITALS (13 sets, daily range): BP systolic 123–133; BP diastolic 73–85; PULSE 73–117; RESP 15–18; TEMP 36.8–37; O2SAT 90–98
[2023-03-20] MEDS: ipratropium-albuterol 3 mL Neb INHALATION ×4 (02:20→19:45)
[2023-03-20] MEDS: sodium chloride 0.9% 1,000 ML 100 ML IV ×2 (02:56→14:46)
[2023-03-20] MEDS: budesonide 0.5 mg/2 mL Neb INHALATION ×2 (08:12→19:45)
[2023-03-20] MEDS: predniSONE 20 mg Tablet 40 MG PO (09:36)
[2023-03-20] MEDS: pantoprazole DR 40 mg Tablet PO (09:37)
[2023-03-20] MEDS: cetirizine 10 mg Tablet PO (09:37)
[2023-03-20] MEDS: docusate sodium 100 mg Capsule PO ×2 (09:37→17:06)
[2023-03-20 09:52] LABS: Basophils % 0.1 %; Hematocrit 40.1 % (37-53); Lymphocytes # 0.6 10^3/uL (0.8-4.8); Lymphocytes % 4.5 %; Mean Corpuscular HGB Conc 30.4 g/dL (30-55); Mean Corpuscular Hemoglobin 32.5 pg (27-33); Mean Corpuscular Volume 106.9 fl (82-101); Mean Platelet Volume 9.1 fL (7.4-10.4); Monocytes # 0.7 10^3/uL (0.2-0.9); Monocytes % 5.5 %; Neutrophils # 11.53 10^3/uL (1.8-7.7); Neutrophils % 89.1 %; Nucleated Red Blood Cells % 0 %; Platelet Count 198 10^3/cmm (157-399); Red Blood Count 3.75 10^6/uL (3.85-5.65); White Blood Count 12.93 10^3/uL (3.29-11.43)
[2023-03-20 10:10] LABS: Alanine Aminotransferase 23 U/L (0-41); Albumin Level 2.6 g/dL (3.5-5.2); Alkaline Phosphatase 77 U/L (40-130); Anion Gap 7.5 (5-19); Aspartate Amino Transferase 45 U/L (0-40); Blood Urea Nitrogen 19 mg/dL (8-23); Calcium 8.1 mg/dL (8.5-10.5); Carbon Dioxide 32 mmol/L (22-29); Chloride 104 mmol/L (98-107); Globulin 2.8 g/dL (1.3-4.6); Glomerular Filtration Rate 111.5 mL/min (90-130); Glucose 112 mg/dL (65-115); Osmolality Calculated 291 mOsm/kg (285-295); Potassium 4.5 mmol/L (3.5-5.1); Sodium 139 mmol/L (136-145); Total Bilirubin 0.2 mg/dL (0.15-1.2); Total Protein 5.4 g/dL (6.6-8.7)
[2023-03-20] MEDS: cefTRIAXone 1,000 MG in sodium chloride 0.9% (plus) 50 ML 100 MG IV (17:06)
[2023-03-20] MEDS: azithromycin 500 MG in sodium chloride 0.9% 250 ML 250 MG PO (19:30)
[2023-03-20] MEDS: enoxaparin 40 mg/0.4 mL Syringe SUBCUT (22:20)
--- NOTE | 2023-03-20 22:25 | PM.PN ---
Subjective Subjective: no acute interim events, leukocytsois trending down , feels overall unchanged, assesed by PT and OT today Medications: Reviewed: Yes Vitals/I&O/Wt Last Vital Signs Temp 98.2 F 03/20/23 19:20 Pulse 87 03/20/23 19:45 Resp 18 03/20/23 19:45 BP 132/78 03/20/23 19:20 Pulse Ox 94 03/20/23 19:45 O2 Del Method Nasal Cannula 03/20/23 19:45 O2 Flow Rate 3.5 03/20/23 20:00 03/20/23 03/20/23 03/20/23 06:59 14:59 22:59 Intake Total 1195 / 4060 1655 / 1655 540 / 2195 Output Total 300 / 600 300 / 300 Balance 895 / 3460 1655 / 1655 240 / 1895 Physical Exam Narrative: General: No acute distress, AO x3 he appears to be disheveled,, hard of hearing HEENT: PERRLA, pupils bilaterally equal and reactive, pallors not present Chest: Normal vesicular breath sounds, no added sounds, equal good air entry bilaterally CVS: S1-S2 regular, no murmurs, no tachycardia, no gallops, no rubs Abdomen: Soft, nontender, no organomegaly, bowel sounds present Neuro: No focal deficits, no facial deformity, AO x3, power 5/5 in all limbs Data 03/20/23 09:40 03/20/23 09:40 Micro: Microbiology 03/17/23 18:43 Blood Culture - Preliminary Blood Staphylococcus epidermidis 03/20/23 09:44 Blood Culture - Preliminary Blood SPECIMEN COLLECTED 03/20/23 09:40 Blood Culture - Preliminary Blood SPECIMEN COLLECTED A&P Assessment and plan (1) Altered mental status: Now resolved, patient is back at his baseline mentation, confirmed by his brother that patient is baseline (2) Acute kidney injury: Secondary to dehydration, heat and prerenal processes. Improving (3) Community acquired pneumonia: Right lower lobe, organism unknown, present on admission. Has associated leukocytosis with left shift and lymphopenia noted. Continue empiric antibiotics with ceftriaxone and azithromycin Blood cultures have been collected, 1 out of 4 bottles reported positive for coag negative staph, suspect contamination Negative COVID PCR Negative Legionella antigen (4) Acute exacerbation of chronic obstructive airways disease: With acutely worsening hypercapnia and hypoxemia due to combination of pneumonia as well as at least a transient lack of oxygen from an oxygen concentrator that may not have been working appropriately Continue scheduled DuoNeb and budesonide inhalation Continue prednisone 40 mg p.o. daily, suspect steroids may be contributing to some persisting leukocytosis (5) Acute dehydration: Present on admission, severe, related to heat and lack of water intake the last couple of days Continue normal saline at 100 cc an hour, encourage p.o. intake Plan Plan for today: D/c IVF as better hydrated, leukocytosis trending down, CONS identofied as staph epidermidis, contaminnat most likely, Appreciate PT and OT evaluation, demonstarted reduced endurance and strength , will benefit from ongoing therapy, appropriate disposition planning ongoing Attestations Medical Necessity Statement*: appropriate dispo planning ongoing, iv abx Coding Level of Care Code Acute Code for Chg Fwd Diagnoses Altered mental status R41.82 Acute kidney injury N17.9 Community acquired pneumonia J18.9 Acute exacerbation of chronic obstructive airways disease J44.1 Acute dehydration E86.0
[2023-03-21] VITALS (14 sets, daily range): BP systolic 135–152; BP diastolic 66–95; PULSE 64–95; RESP 15–18; TEMP 36.7–36.9; O2SAT 74–99
[2023-03-21] MEDS: ipratropium-albuterol 3 mL Neb INHALATION ×4 (01:51→19:57)
[2023-03-21 05:05] LABS: Basophils % 0.1 %; Hematocrit 37.5 % (37-53); Lymphocytes # 0.5 10^3/uL (0.8-4.8); Lymphocytes % 4.1 %; Mean Corpuscular HGB Conc 31.5 g/dL (30-55); Mean Corpuscular Volume 108.1 fl (82-101); Mean Platelet Volume 10.5 fL (7.4-10.4); Monocytes # 0.7 10^3/uL (0.2-0.9); Neutrophils % 90.2 %; Nucleated Red Blood Cells % 0 %; Platelet Count 179 10^3/cmm (157-399); Red Blood Count 3.47 10^6/uL (3.85-5.65); Red Cell Distribution Width 12.9 % (12.1-15.1); White Blood Count 13.09 10^3/uL (3.29-11.43)
[2023-03-21 05:35] LABS: Alanine Aminotransferase 24 U/L (0-41); Albumin Level 2.4 g/dL (3.5-5.2); Alkaline Phosphatase 73 U/L (40-130); Anion Gap 6.4 (5-19); Aspartate Amino Transferase 35 U/L (0-40); Blood Urea Nitrogen 15 mg/dL (8-23); Calcium 7.9 mg/dL (8.5-10.5); Carbon Dioxide 34 mmol/L (22-29); Chloride 103 mmol/L (98-107); Globulin 2.9 g/dL (1.3-4.6); Glomerular Filtration Rate 133.2 mL/min (90-130); Glucose 102 mg/dL (65-115); NT Pro B Type Natriuretic Pept 10463 pg/mL (0-125); Osmolality Calculated 289 mOsm/kg (285-295); Potassium 4.4 mmol/L (3.5-5.1); Sodium 139 mmol/L (136-145); Total Bilirubin 0.2 mg/dL (0.15-1.2); Total Protein 5.3 g/dL (6.6-8.7)
[2023-03-21] MEDS: budesonide 0.5 mg/2 mL Neb INHALATION ×2 (09:09→19:57)
[2023-03-21] MEDS: pantoprazole DR 40 mg Tablet PO (09:59)
[2023-03-21] MEDS: cetirizine 10 mg Tablet PO (09:59)
[2023-03-21] MEDS: docusate sodium 100 mg Capsule PO (09:59)
[2023-03-21] MEDS: predniSONE 20 mg Tablet 40 MG PO (09:59)
--- NOTE | 2023-03-21 15:30 | USCV_ITS ---
Yong Small Age: 72 Gender: M : 1950 Exam Date: 03/21/2023 15:46 Ordering Phys: Beth Arzola MD Technologist: Sanjiv Mata Exam Location: [facility] [place] Indication: ? ef BP: 134 / 74 HR: 88 Rhythm: Sinus Technical Quality: Adequate MEASUREMENTS (Male / Female) Normal Values 2D ECHO LV Diastolic Diameter PLAX 3.2 cm 4.2 - 5.9 / 3.9 - 5.3 cm LV Systolic Diameter PLAX 2.3 cm IVS Diastolic Thickness 1.1 cm 0.6 - 1.0 / 0.6 - 0.9 cm IVS Systolic Thickness 1.4 cm LVPW Diastolic Thickness 1.1 cm 0.6 - 1.0 / 0.6 - 0.9 cm LVPW Systolic Thickness 1.3 cm LVOT Diameter 2.0 cm LV Ejection Fraction 2D Teich 54.9 % LV Ejection Fraction MOD 2C 60.8 % LV Ejection Fraction 2C AL 62.4 % LA Diameter 3.6 cm IVC Diameter 2.1 cm M-MODE Aortic Annulus Diameter 3.6 cm LA Ao Ratio MM 1.0 MV E Point Septal Separation 1.1 cm DOPPLER AV Peak Velocity 112.7 cm/s LVOT Peak Velocity 90.0 cm/s AV Area Cont Eq vti 2.4 cm squared AV Area Cont Eq pk 2.6 cm squared MV Area PHT 5.0 cm squared Mitral E to A Ratio 1.5 MV E' Velocity 60.5 cm/s Mitral E to MV E' Ratio 12.9 Mitral E to LV E' Lateral Ratio 11.1 Mitral E to LV E' Septal Ratio 15.5 TR Peak Velocity 173.0 cm/s TR Peak Gradient 12.0 mmHg TV Peak E Velocity 97.0 cm/s Right Atrial Pressure 3.0 mmHg Pulmonary Artery Systolic Pressu 15.0 mmHg RV Acceleration Time 0.1 s FINDINGS Left Ventricle Normal left ventricular size and systolic function, EF 68 %. No regional wall motion abnormalities. Grade I/IV diastolic dysfunction (abnormal relaxation filling pattern), normal to mildly elevated filling pressures. Right Ventricle The right ventricle is normal in size and function. Right Atrium The right atrium is normal in size. Left Atrium The left atrium is normal in size. Mitral Valve No gross abnormalities no Aortic Valve Thickened aortic valve. Tricuspid Valve Trace tricuspid valve regurgitation. Pulmonic Valve Pulmonic valve not well visualized. Pericardium Normal pericardium without effusion. Aorta Dense plaques in the ascending aorta IVC The inferior vena cava appears normal. CONCLUSIONS Normal left ventricular size and systolic function, EF 68 %. No regional wall motion abnormalities. Type I diastolic dysfunction. Thickened aortic valve. Trace tricuspid valve regurgitation. Normal cardiac chamber sizes There is no pericardial effusion. There are no intracardiac masses. Compared to the study from 10/08/2016, there may not be a significant change Dr Shan Schmitt MD [facility] (Electronically Signed) Final Date: 21 March 2023 18:45 S
--- NOTE | 2023-03-21 15:31 | PM.PN ---
Subjective Subjective: Appears to be slightly more dyspneic today. IV fluids were discontinued yesterday. This morning there are some scattered crackles on exam. Received Lasix 20 mg IV. Denies any new complaints. Feels like he may be getting stronger. Medications: Reviewed: Yes Vitals/I&O/Wt Last Vital Signs Temp 98.3 F 03/21/23 15:17 Pulse 95 03/21/23 15:17 Resp 16 03/21/23 15:17 BP 146/76 03/21/23 15:17 Pulse Ox 99 03/21/23 15:17 O2 Del Method Nasal Cannula 03/21/23 15:17 O2 Flow Rate 4 03/21/23 14:00 03/21/23 03/21/23 03/21/23 06:59 14:59 22:59 Intake Total 850 / 3045 480 / 480 Output Total 450 / 750 Balance 400 / 2295 480 / 480 Physical Exam Narrative: General: No acute distress, AO x3 HEENT: PERRLA, pupils bilaterally equal and reactive, pallors not present Chest: Normal vesicular breath sounds, no added sounds, equal good air entry bilaterally CVS: S1-S2 regular, no murmurs, no tachycardia, no gallops, no rubs Abdomen: Soft, nontender, no organomegaly, bowel sounds present Neuro: No focal deficits, no facial deformity, AO x3, power 5/5 in all limbs Data 03/21/23 04:05 03/21/23 04:05 Micro: Microbiology 03/20/23 09:44 Blood Culture - Preliminary Blood NEGATIVE TO DATE 03/20/23 09:40 Blood Culture - Preliminary Blood NEGATIVE TO DATE 03/17/23 18:43 Blood Culture - Preliminary Blood Staphylococcus epidermidis A&P Assessment and plan (1) Altered mental status: Now resolved, patient is back at his baseline mentation, confirmed by his brother that patient is baseline (2) Acute kidney injury: Secondary to dehydration, heat and prerenal processes. Resolved (3) Community acquired pneumonia: Right lower lobe, organism unknown, present on admission. Has associated leukocytosis with left shift and lymphopenia noted. Continue empiric antibiotics with ceftriaxone and azithromycin Blood cultures have been collected, 1 out of 4 bottles reported positive for coag negative staph, suspect contamination Negative COVID PCR Negative Legionella antigen Sputum culture not available. (4) Acute exacerbation of chronic obstructive airways disease: Taper prednisone 40 mg p.o. daily to prednisone 20 mg daily (5) Acute dehydration: Present on admission, severe, related to heat and lack of water intake the last couple of days Disocntinue IVF interim developemnet of cracles on exam BNP > 10,000 no chest pain lasix 20mg iv today montor I/O limited echo to assess EF, noted chronic appearing T wave inversion son EKG Plan Blood cx with contamination 08/01 CoNS : no treatment indicated DVT ppx: lovenox Full code Attestations Medical Necessity Statement*: iv diuresis today, ongoing disposition planning Coding Level of Care Code Acute Code for Chg Fwd Diagnoses Altered mental status R41.82 Acute kidney injury N17.9 Community acquired pneumonia J18.9 Acute exacerbation of chronic obstructive airways disease J44.1 Acute dehydration E86.0
[2023-03-21] MEDS: FUROsemide 10 mg/mL SDV 2mL 20 MG IVP (16:12)
[2023-03-21] MEDS: cefTRIAXone 1,000 MG in sodium chloride 0.9% (plus) 50 ML 100 MG IV (17:21)
[2023-03-21] MEDS: enoxaparin 40 mg/0.4 mL Syringe SUBCUT (22:28)
[2023-03-22] VITALS (11 sets, daily range): BP systolic 125–157; BP diastolic 62–79; PULSE 72–108; RESP 16–20; TEMP 36.5–36.9; O2SAT 90–100
[2023-03-22] MEDS: ipratropium-albuterol 3 mL Neb INHALATION ×3 (01:23→14:12)
[2023-03-22] MEDS: cetirizine 10 mg Tablet PO (09:48)
[2023-03-22] MEDS: pantoprazole DR 40 mg Tablet PO (09:48)
[2023-03-22] MEDS: predniSONE 20 mg Tablet PO (09:48)
[2023-03-22] MEDS: budesonide 0.5 mg/2 mL Neb INHALATION (10:12)
--- NOTE | 2023-03-22 16:13 | PM.PN ---
Subjective Subjective: New complaints today. Lab break today. Remains afebrile and hemodynamically stable. Echocardiogram with type I diastolic dysfunction. Breathing status is improved today. Medications: Reviewed: Yes Vitals/I&O/Wt Last Vital Signs Temp 97.7 F 03/22/23 15:44 Pulse 108 H 03/22/23 15:44 Resp 20 H 03/22/23 15:44 BP 137/74 03/22/23 15:44 Pulse Ox 94 03/22/23 15:44 O2 Del Method Nasal Cannula 03/22/23 15:44 O2 Flow Rate 5 03/22/23 14:12 03/22/23 03/22/23 03/22/23 06:59 14:59 22:59 Intake Total 120 / 120 Output Total 300 / 900 500 / 500 Balance -300 / 90 -380 / -380 Physical Exam Narrative: General: No acute distress, AO x3 HEENT: PERRLA, pupils bilaterally equal and reactive, pallors not present Chest: Normal vesicular breath sounds, no added sounds, equal good air entry bilaterally CVS: S1-S2 regular, no murmurs, no tachycardia, no gallops, no rubs Abdomen: Soft, nontender, no organomegaly, bowel sounds present Neuro: No focal deficits, no facial deformity, AO x3, power 5/5 in all limbs Data 03/21/23 04:05 03/21/23 04:05 A&P Assessment and plan (1) Altered mental status: Now resolved, patient is back at his baseline mentation, confirmed by his brother that patient is baseline (2) Acute kidney injury: Secondary to dehydration, heat and prerenal processes. Resolved (3) Community acquired pneumonia: Right lower lobe, organism unknown, present on admission. Has associated leukocytosis with left shift and lymphopenia noted. Continue empiric antibiotics with ceftriaxone and azithromycin Blood cultures have been collected, 1 out of 4 bottles reported positive for coag negative staph, suspect contamination Negative COVID PCR Negative Legionella antigen Sputum culture not available. (4) Acute exacerbation of chronic obstructive airways disease: Taper prednisone 40 mg p.o. daily to prednisone 20 mg daily (5) Acute dehydration: Present on admission, severe, related to heat and lack of water intake the last couple of days Disocntinue IVF interim developemnet of cracles on exam BNP > 10,000 no chest pain lasix 20mg iv today montor I/O limited echo to assess EF, noted chronic appearing T wave inversion son EKG Plan Blood cx with contamination 08/01 CoNS : no treatment indicated DVT ppx: lovenox Full code Attestations Medical Necessity Statement*: Awaiting appropriate disposition planning, patient is currently clinically improved. However has poor living conditions, awaiting transition to SNF Coding Level of Care Code Acute Code for Chg Fwd Diagnoses Altered mental status R41.82 Acute kidney injury N17.9 Community acquired pneumonia J18.9 Acute exacerbation of chronic obstructive airways disease J44.1 Acute dehydration E86.0
[2023-03-22] MEDS: cefTRIAXone 1,000 MG in sodium chloride 0.9% (plus) 50 ML 100 MG IV (17:21)
[2023-03-22] MEDS: docusate sodium 100 mg Capsule PO (17:21)
[2023-03-22] MEDS: enoxaparin 40 mg/0.4 mL Syringe SUBCUT (22:07)
[2023-03-23] VITALS (14 sets, daily range): BP systolic 131–168; BP diastolic 71–99; PULSE 82–99; RESP 18–20; TEMP 36.2–36.9; O2SAT 90–97
[2023-03-23] MEDS: ipratropium-albuterol 3 mL Neb INHALATION ×4 (02:00→19:11)
[2023-03-23] MEDS: budesonide 0.5 mg/2 mL Neb INHALATION ×2 (08:29→19:11)
[2023-03-23] MEDS: predniSONE 20 mg Tablet PO (09:18)
[2023-03-23] MEDS: pantoprazole DR 40 mg Tablet PO (09:18)
[2023-03-23] MEDS: cetirizine 10 mg Tablet PO (09:18)
--- NOTE | 2023-03-23 15:44 | PM.PN ---
Subjective Subjective: No new complaints today. Reports that his breathing is much better today. Remains stable on 4 L/min supplemental O2 which is close to his baseline. Medications: Reviewed: Yes Vitals/I&O/Wt Last Vital Signs Temp 97.6 F 03/23/23 11:40 Pulse 82 03/23/23 13:40 Resp 20 H 03/23/23 13:40 BP 131/74 03/23/23 11:40 Pulse Ox 95 03/23/23 13:40 O2 Del Method Nasal Cannula 03/23/23 13:40 O2 Flow Rate 4 03/23/23 13:40 03/23/23 03/23/23 03/23/23 06:59 14:59 22:59 Intake Total 240 / 1100 840 / 840 Output Total 100 / 600 200 / 200 Balance 140 / 500 640 / 640 Physical Exam Narrative: General: No acute distress, AO x3 HEENT: PERRLA, pupils bilaterally equal and reactive, pallors not present Chest: Normal vesicular breath sounds, no added sounds, equal good air entry bilaterally CVS: S1-S2 regular, no murmurs, no tachycardia, no gallops, no rubs Abdomen: Soft, nontender, no organomegaly, bowel sounds present Neuro: No focal deficits, no facial deformity, AO x3, power 5/5 in all limbs Data 03/21/23 04:05 03/21/23 04:05 Micro: Microbiology 03/17/23 18:43 Blood Culture - Final Blood NO GROWTH AFTER 5 DAYS A&P Assessment and plan (1) Altered mental status: Now resolved, patient is back at his baseline mentation, confirmed by his brother that patient is baseline (2) Acute kidney injury: Secondary to dehydration, heat and prerenal processes. Resolved (3) Community acquired pneumonia: Right lower lobe, organism unknown, present on admission. Now status post treatment with ceftriaxone and azithromycin for total duration of 5 days. Discontinue antibiotics today. Blood cultures 1 out of 4 bottles reported positive for Staph epidermidis, likely this is contamination. Repeat blood cultures remain negative to date. No specific treatment is warranted. Negative COVID PCR Negative Legionella antigen Sputum culture not available. (4) Acute exacerbation of chronic obstructive airways disease: continue prednisone at 20 mg today, will taper down further tomorrow. (5) Acute dehydration: Present on admission, severe, related to heat and lack of water intake the last couple of days Now resolved. Echocardiogram shows LVEF of 68%, no regional wall motion abnormalities, type I diastolic dysfunction. Needed 1 dose of IV Lasix 20 mg 2 days ago, likely as a result of overhydration with fluids. Now clinically euvolemic. Encourage p.o. intake. Plan Disposition: Awaiting authorization for retirement facility. Patient does not have running water in his home. Does not really have any caretakers. He is currently deconditioned from his comorbidities. Discharge home alone does not appear to be a safe option for him. Will likely benefit from continued skilled therapy to improve strength balance and mobility. DVT ppx: lovenox Full code Attestations Medical Necessity Statement*: Patient is well optimized with regards to his pneumonia and COPD, appropriate disposition planning is ongoing. Coding Level of Care Code Acute Code for g Fwd Diagnoses Altered mental status R41.82 Acute kidney injury N17.9 Community acquired pneumonia J18.9 Acute exacerbation of chronic obstructive airways disease J44.1 Acute dehydration E86.0
[2023-03-23] MEDS: docusate sodium 100 mg Capsule PO (17:13)
[2023-03-23] MEDS: cefTRIAXone 1,000 MG in sodium chloride 0.9% (plus) 50 ML 100 MG IV (17:13)
[2023-03-23] MEDS: lanolin oint 7 gm 1 APPLIC TOPICAL (21:51)
[2023-03-23] MEDS: enoxaparin 40 mg/0.4 mL Syringe SUBCUT (21:51)
[2023-03-24] VITALS (13 sets, daily range): BP systolic 127–174; BP diastolic 70–94; PULSE 69–92; RESP 16–19; TEMP 36.4–36.8; O2SAT 90–100
--- NOTE | 2023-03-24 04:02 | ECG_ITS ---
[facility] Test Date: 2023-03-24 Pat Name: Yong Small Department: Room: 252 Gender: Male [place]: : 1950 Requested By: Roderick Hawley Order Number: [id number] Cora MD: Ramon Wagoner M.D. Measurements Intervals [place] Rate: 85 P: 84 HI: 119 QRS: 80 QRSD: 76 T: 61 QT: 373 QTc: 444 Interpretive Statements SINUS RHYTHM WITH SHORT HI INTERVAL POSSIBLE LEFT ATRIAL ENLARGEMENT [-0.1mV P-WAVE IN V1/V2] MODERATE T-WAVE ABNORMALITY, CONSIDER ANTERIOR ISCHEMIA [-0.1+ mV T-WAVE IN V3/V4] Compared to ECG 03/17/2023 18:20:02 Short HI interval now present T-wave abnormality still present Possible ischemia still present Electronically Signed On 03-24-2023 15:15:49 CDT by Ramon Wagoner M.D. [id number]
[2023-03-24] MEDS: aluminum-mag hydrox-simethicon 30 ML, sucralfate oral liq 1 GM PO (04:24)
[2023-03-24 05:47] LABS: Basophils % 0.1 %; Eosinophils # 0.1 10^3/uL (0.0-0.8); Eosinophils % 0.8 %; Hematocrit 40.6 % (37-53); Lymphocytes # 0.8 10^3/uL (0.8-4.8); Mean Corpuscular HGB Conc 31.5 g/dL (30-55); Mean Corpuscular Hemoglobin 32.2 pg (27-33); Mean Corpuscular Volume 102.3 fl (82-101); Mean Platelet Volume 10.5 fL (7.4-10.4); Monocytes # 0.8 10^3/uL (0.2-0.9); Monocytes % 5.7 %; Neutrophils # 11.91 10^3/uL (1.8-7.7); Neutrophils % 86.7 %; Nucleated Red Blood Cells % 0 %; Platelet Count 194 10^3/cmm (157-399); Red Blood Count 3.97 10^6/uL (3.85-5.65); Red Cell Distribution Width 12.7 % (12.1-15.1); White Blood Count 13.74 10^3/uL (3.29-11.43)
[2023-03-24 06:10] LABS: Alanine Aminotransferase 17 U/L (0-41); Albumin Level 2.8 g/dL (3.5-5.2); Alkaline Phosphatase 63 U/L (40-130); Aspartate Amino Transferase 19 U/L (0-40); Blood Urea Nitrogen 12 mg/dL (8-23); Carbon Dioxide 40 mmol/L (22-29); Chloride 91 mmol/L (98-107); Globulin 2.2 g/dL (1.3-4.6); Glomerular Filtration Rate 164.4 mL/min (90-130); Glucose 83 mg/dL (65-115); Osmolality Calculated 281 mOsm/kg (285-295); Sodium 136 mmol/L (136-145); Total Bilirubin 0.3 mg/dL (0.15-1.2)
[2023-03-24 06:11] LABS: Troponin(5th) Baseline 41 ng/L (0-15)
[2023-03-24 06:13] LABS: Anion Gap 9.2 (5-19); Potassium 4.2 mmol/L (3.5-5.1)
--- NOTE | 2023-03-24 06:22 | ECG_ITS ---
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 Measurements Intervals [place] Rate: 84 P: 89 MS: 115 QRS: 85 QRSD: 79 T: 75 QT: 382 QTc: 454 Interpretive Statements SINUS RHYTHM ST DEVIATION AND MODERATE T-WAVE ABNORMALITY, CONSIDER ANTERIOR ISCHEMIA [-0.1+ mV T-WAVE IN V3/V4] Compared to ECG 03/24/2023 04:08:10 Sinus rhythm no longer present Short MS interval no longer present T-wave abnormality still present Possible ischemia still present Electronically Signed On 03-24-2023 15:24:12 CDT by Ramon Wagoner M.D. [id number]
[2023-03-24 07:34] LABS: Troponin 5 2HR 41.01 ng/L (0-15)
[2023-03-24 07:40] LABS: Troponin 5 2HR Delta 0.01 ABS# (0-10)
--- NOTE | 2023-03-24 08:27 | PC.SOCIAL ---
IMM Update pg 2 of IMM not updated as patient is currently in observation status.
[2023-03-24] MEDS: budesonide 0.5 mg/2 mL Neb INHALATION ×2 (08:33→20:45)
[2023-03-24] MEDS: ipratropium-albuterol 3 mL Neb INHALATION ×3 (08:33→20:45)
[2023-03-24] MEDS: cetirizine 10 mg Tablet PO (09:20)
[2023-03-24] MEDS: predniSONE 20 mg Tablet PO (09:20)
[2023-03-24] MEDS: pantoprazole DR 40 mg Tablet PO (09:20)
--- NOTE | 2023-03-24 10:22 | ECG_ITS ---
[facility] Test Date: 2023-03-24 Pat Name: Yong Small Department: Room: 252 Gender: Male House Father: : 1950 Requested By: Roderick Hawley Order Number: [id number] Cora MD: Ramon Wagoner M.D. Measurements Intervals [place] Rate: 85 P: 86 SC: 96 QRS: 84 QRSD: 82 T: 72 QT: 367 QTc: 438 Interpretive Statements SINUS RHYTHM WITH SHORT SC INTERVAL WITH OCCASIONAL SUPRAVENTRICULAR PREMATURE COMPLEXES ST DEVIATION AND MODERATE T-WAVE ABNORMALITY, CONSIDER ANTERIOR ISCHEMIA [-0.1+ mV T-WAVE IN V3/V4] Compared to ECG 03/24/2023 06:48:18 Short SC interval now present T-wave abnormality still present Possible ischemia still present Electronically Signed On 03-24-2023 15:23:09 CDT by Ramon Wagoner M.D. [id number]
[2023-03-24 11:15] LABS: Troponin 5 6HR 42.81 ng/L (0-15); Troponin 5 6HR Delta 1.81 ng/L (0-12)
--- NOTE | 2023-03-24 14:20 | PC.NURSE ---
Verbal order for C. Diff from Dr. Arzloa due to severe diarrhea
[2023-03-24] MEDS: cefTRIAXone 1,000 MG in sodium chloride 0.9% (plus) 50 ML 100 MG IV (17:36)
--- NOTE | 2023-03-24 17:51 | PM.PN ---
Subjective Subjective: No new complaints today. Labs are stable. States that his breathing is back to baseline. Complaining of diarrhea today, C. difficile sent, currently pending. Medications: Reviewed: Yes Vitals/I&O/Wt Last Vital Signs Temp 97.9 F 03/24/23 12:00 Pulse 86 03/24/23 14:00 Resp 19 H 03/24/23 13:20 BP 127/78 03/24/23 12:00 Pulse Ox 94 03/24/23 13:20 O2 Del Method Nasal Cannula 03/24/23 13:20 O2 Flow Rate 4 03/24/23 13:20 03/24/23 03/24/23 03/24/23 06:59 14:59 22:59 Intake Total 240 / 1610 720 / 720 Output Total 200 / 200 Balance 240 / 1350 520 / 520 Physical Exam Narrative: General: No acute distress, AO x3 HEENT: PERRLA, pupils bilaterally equal and reactive, pallors not present Chest: Normal vesicular breath sounds, no added sounds, equal good air entry bilaterally CVS: S1-S2 regular, no murmurs, no tachycardia, no gallops, no rubs Abdomen: Soft, nontender, no organomegaly, bowel sounds present Neuro: No focal deficits, no facial deformity, AO x3, power 5/5 in all limbs Data 03/24/23 04:57 03/24/23 04:57 Micro: Microbiology 03/17/23 18:43 Blood Culture - Final Blood Staphylococcus epidermidis A&P Assessment and plan (1) Altered mental status: Now resolved, patient is back at his baseline mentation (2) Acute kidney injury: Secondary to dehydration, heat and prerenal processes. Now resolved, creatinine is back at baseline (3) Community acquired pneumonia: Right lower lobe, organism unknown, present on admission. Has associated leukocytosis with left shift and lymphopenia noted. Completed empiric antibiotics with ceftriaxone and azithromycin x 6 days Blood cultures have been collected, 1 out of 4 bottles reported positive for coag negative staph, suspect contamination Negative COVID PCR Negative Legionella antigen (4) Acute exacerbation of chronic obstructive airways disease: With acutely worsening hypercapnia and hypoxemia due to combination of pneumonia as well as at least a transient lack of oxygen from an oxygen concentrator that may not have been working appropriately Continue scheduled DuoNeb and budesonide inhalation Continue prednisone 20 mg p.o. daily doing well from resp standpoint back at baseline 4lpm supplemental 02 (5) Acute dehydration: Present on admission, severe, related to heat and lack of water intake the last couple of days encourage po intake (6) Diarrhea: May be antibiotic associated diarrhea. Discontinue ceftriaxone today has completed adequate course. Check C. difficile. Plan Echo: gr 1 diastolic dysfunction. Currently euvolemic Not currently exacerbated. DVT prophylaxis: Lovenox Full code Dispo: Awaiting appropriate disposition planning, will likely benefit from continued skilled therapy. Attestations Medical Necessity Statement*: Awaiting appropriate disposition planning. Coding Level of Care Code Acute Code for [facility] Fwd Diagnoses Altered mental status R41.82 Acute kidney injury N17.9 Community acquired pneumonia J18.9 Acute exacerbation of chronic obstructive airways disease J44.1 Acute dehydration E86.0 Diarrhea R19.7
[2023-03-24] MEDS: enoxaparin 40 mg/0.4 mL Syringe SUBCUT (21:40)
[2023-03-25] VITALS (14 sets, daily range): BP systolic 124–153; BP diastolic 69–94; PULSE 52–130; RESP 17–22; TEMP 36.3–37.1; O2SAT 90–95
--- NOTE | 2023-03-25 03:10 | PC.NURSE ---
Patient stated he feels very depressed and his worried about losing everything he owns [facility]. This nurse sat and talked with the patient while he vented about his [id number] trying to take his stuff and that he was worried about his 10 cats that he has raised. This nurse tried to comfort patient and tried to get him to look at going to the [facility] as a short-term stay until he is able to get stronger. Patient stated he appreciated this nurse sitting and talking with him.
[2023-03-25] MEDS: ipratropium-albuterol 3 mL Neb INHALATION ×3 (09:15→19:54)
[2023-03-25] MEDS: budesonide 0.5 mg/2 mL Neb INHALATION ×2 (09:16→19:54)
[2023-03-25] MEDS: pantoprazole DR 40 mg Tablet PO (09:25)
[2023-03-25] MEDS: cetirizine 10 mg Tablet PO (09:25)
[2023-03-25] MEDS: predniSONE 20 mg Tablet PO (09:25)
--- NOTE | 2023-03-25 10:37 | PC.CHAP ---
Pastoral Care Encounter/Spiritual Assessment Type of Contact [] Declined cordwainer visit [] Patient/Family/Request visit [] Outpatient visit [] Follow-up visit [] Physician referral [] Code/Alert [] Routine visit [] Staff referral [] Actively dying [] Patient sleeping x] Family support [] [] Out of room [x] Palliative care [] [] Receiving care in room [] Pre-surgical visit [] Trauma [] Long length of stay [] ICU visit [] Other: Relational/Emotional Strength x[] Patient feels connected with others/family/visitors/staff [] Distress [] Loneliness/isolation [] Abandonment Spirituality of Patient x[] Person of Alyssa [] Attends Buddhist of their Alyssa x] Believes in Prayer [] Reads Bible or Baptist materials [] There are Spiritual issues to be addressed Retreader Interventions x] Prayer []x Active listening [] Non-anxious presence [] Spiritual/emotional support [] Crisis/trauma care [] Spiritual counseling [] Bereavement support [] Provided bereavement packet [] Provided Bible/devotional materials [] Provided toy/stuffed animal, coloring book to patient or family member [] Provided Communion [] Anointing/Orestes [] Salvation [x] Completed spiritual assessment [] Other: Impact on Illness or Injury [] Angry [] Fearful [] Anxious [] Often cries [] Exhaustion [] Unable to work [] Unable to attend yarsani [] Unable to walk/stand [] Unable to read [] Unable to drive [] Unable to eat/drink [] Unable to sleep [] Unable to be with family [] Patient intubated [] Other: Summary Time spent with patient 10 min
--- NOTE | 2023-03-25 13:08 | P.PN_ITS ---
Subjective Subjective: Feeling so-so . Still coughing, so-so on the amount of sputum. Vitals/I&O/Wt Last Vital Signs Temp 97.9 F 03/25/23 07:25 Pulse 97 03/25/23 10:55 Resp 22 H 03/25/23 09:00 BP 134/85 03/25/23 07:25 Pulse Ox 93 03/25/23 09:00 O2 Del Method Nasal Cannula 03/25/23 09:00 O2 Flow Rate 2 03/25/23 09:27 03/24/23 03/25/23 03/25/23 22:59 06:59 14:59 Intake Total 650 / 1370 240 / 1610 360 / 360 Output Total 400 / 600 250 / 850 Balance 250 / 770 -10 / 760 360 / 360 Physical Exam Const: COMMON NORMALS: patient oriented x3 and alert GENERAL APPEARANCE: cooperative and disheveled ORIENTATION/CONSCIOUSNESS: Yes awake HENMT: COMMON NORMALS: oropharynx normal Neck/C-Spine: COMMON NORMALS: no JVD Resp: COMMON NORMALS: normal respiratory effort AUSCULTATION: diminished lung sounds Cardio: COMMON NORMALS: no JVD, regular rhythm, S1 normal heart sound present, S2 normal heart sound present and No murmurs present (Cardio) RHYTHM: regular rhythm HEART SOUNDS: S1 normal heart sound present and S2 normal heart sound present GI: COMMON NORMALS: Normal to inspection, nondistended, normoactive bowel sounds present, Soft to palpation and non-tender PALPATION: Yes Soft to palpation Extremity: COMMON NORMALS: no joint enlargement and no pedal edema Neuro: COMMON NORMALS: patient oriented x3 and moves all extremities SENSORIUM/ORIENTATION: Yes alert Skin: COMMON NORMALS: no rashes or lesions noted GENERAL SKIN EXAM: no rashes or lesions noted Data 03/24/23 04:57 03/24/23 04:57 Micro: Microbiology 03/20/23 09:44 Blood Culture - Final Blood NO GROWTH AFTER 5 DAYS 03/20/23 09:40 Blood Culture - Final Blood NO GROWTH AFTER 5 DAYS 03/24/23 17:36 C.difficile Toxin B Gene (PCR) - Final Stool - Stool Aspirate 03/17/23 18:43 Blood Culture - Final Blood Staphylococcus epidermidis A&P Assessment and plan (1) Acute exacerbation of chronic obstructive airways disease: Still cough, diminished air entry. Continue prednisone. If showing improvement will de-escalate dose. For now keep same dose. Continue breathing treatments, inhaled budesonide. Completed antibiotic course. Reviewed cultures, Blood culture negative today. Legionella antigen negative. at baseline 4lpm supplemental 02 (2) Community acquired pneumonia: Still some cough. On 2 L nasal cannula. Completed antibiotic course. We will repeat CBC. Right lower lobe, organism unknown, present on admission. Has associated leukocytosis with left shift and lymphopenia noted. Completed empiric antibiotics with ceftriaxone and azithromycin x 6 days Blood cultures have been collected, 1 out of 4 bottles reported positive for coag negative staph, suspect contamination Negative COVID PCR Negative Legionella antigen (3) Altered mental status: Now resolved, patient is back at his baseline mentation (4) Acute kidney injury: Secondary to dehydration, heat and prerenal processes. Now resolved, creatinine is back at baseline (5) Acute dehydration: Present on admission, severe, related to heat and lack of water intake the last couple of days encourage po intake (6) Diarrhea: Reviewed C. difficile, negative May be antibiotic associated diarrhea. Antibiotic course now completed. Plan Deconditioning, functional decline: Decreased strength and endurance, requiring contact-guard assist with PT, difficulties with ADLs with OT, would benefit from rehabilitation prior to return home. Lives alone. Discussed with case management. Echo: gr 1 diastolic dysfunction. Currently euvolemic Not currently exacerbated. DVT prophylaxis: Lovenox Full code Attestations Medical Necessity Statement*: Continue admission for assessment management of COPD exacerbation, functional decline and deconditioning, continue post discharge planning and arrangements. Diagnoses Acute exacerbation of chronic obstructive airways disease J44.1 Community acquired pneumonia J18.9 Altered mental status R41.82 Acute kidney injury N17.9 Acute dehydration E86.0 Diarrhea R19.7
[2023-03-25] MEDS: enoxaparin 40 mg/0.4 mL Syringe SUBCUT (22:41)
[2023-03-26] VITALS (7 sets, daily range): BP systolic 129–150; BP diastolic 67–85; PULSE 78–91; RESP 16–19; TEMP 36.4–37; O2SAT 90–96
[2023-03-26 05:13] LABS: Basophils % 0.1 %; Eosinophils % 0.3 %; Hematocrit 38.3 % (37-53); Lymphocytes # 0.7 10^3/uL (0.8-4.8); Lymphocytes % 5.2 %; Mean Corpuscular HGB Conc 31.6 g/dL (30-55); Mean Corpuscular Hemoglobin 32.2 pg (27-33); Mean Corpuscular Volume 101.9 fl (82-101); Mean Platelet Volume 9.7 fL (7.4-10.4); Monocytes % 7.5 %; Neutrophils # 11.37 10^3/uL (1.8-7.7); Neutrophils % 86.4 %; Nucleated Red Blood Cells % 0 %; Platelet Count 265 10^3/cmm (157-399); Red Blood Count 3.76 10^6/uL (3.85-5.65); Red Cell Distribution Width 12.6 % (12.1-15.1); White Blood Count 13.15 10^3/uL (3.29-11.43)
[2023-03-26] MEDS: ipratropium-albuterol 3 mL Neb INHALATION (08:31)
[2023-03-26] MEDS: budesonide 0.5 mg/2 mL Neb INHALATION (08:31)
[2023-03-26] MEDS: docusate sodium 100 mg Capsule PO (09:56)
[2023-03-26] MEDS: pantoprazole DR 40 mg Tablet PO (09:56)
[2023-03-26] MEDS: predniSONE 20 mg Tablet PO (09:56)
[2023-03-26] MEDS: cetirizine 10 mg Tablet PO (09:57)
[2023-03-26 12:13] LABS: SARS Covid-2 Antigen negative (Negative)
--- NOTE | 2023-03-26 12:32 | P.DS_ITS ---
Discharge Providers Date of Admission: 03/17/23 20:25 Date of Discharge: March 26, 2023 Attending Provider at Admission: Alma Lamb MD Attending Provider at Discharge: Gideon Peralta Primary Care Provider: APARNA Brasher Diagnoses at Discharge Discharge Diagnosis (1) Acute exacerbation of chronic obstructive airways disease: Status: Acute (2) Community acquired pneumonia: Status: Acute (3) Altered mental status: Status: Acute (4) Acute kidney injury: Status: Acute (5) Acute dehydration: Status: Acute (6) Diarrhea: Status: Acute Reason for Visit Reason for Visit: RESP DISTRESS Brief History: Yong Small is a 72 year old male who was brought to the emergency room by EMS for confusion and difficulty breathing.? Mr. Small lives alone evidently on a property that does not have running water.? The Special Education Professional in the area lives near him and takes him water regularly and checks on him frequently as has been told to me particularly in time such as the last couple of days when it is really hot out.? The Special Education Professional and noted that he did not drink any of the water that he been given the day before and knew that something was not right.? The voice studies director's department was contacted for welfare check.? Evidently when they arrived he was not as alert as he usually is and seem to be having difficulty breathing.? He clinically looked dehydrated.? He has known COPD and is on home oxygen. On admission feeling cold and feverish.? He has had a cough and difficulty breathing.? No report of any chest pain but does describe aching all over.? Getting specifics of history is difficult at this time.? He seems to know who he is and I think where he is but not why he is here.? Patient is on oxygen at home with an oxygen concentrator.? From the information that was provided to me the oxygen concentrator was not working appropriately.? He does have jacy ctricity for the oxygen concentrator.? It sounds like he may not of had oxygen on when he was evaluated at his home. On presentation with dehydration, ABDI, acute on chronic hypoxic hypercapnic respiratory failure related to community-acquired pneumonia and COPD exacerbation. Hospital Course Hospital Course Received treatment for pneumonia and COPD exacerbation in the hospital, treated with ceftriaxone, azithromycin, prednisone, inhaled steroid, DuoNebs, oxygen support, received fluid challenge for dehydration, ABDI, with improvement in renal function. Dehydration resolved. On presentation with some encephalopathy with somnolence, confusion, multifactorial with hypercapnia, metabolic encephalopathy with dehydration, acute kidney injury, gradually improved. He completed antibiotic course, to buttocks were stopped. Did have some diarrhea while in the hospital which had improved, C. difficile was checked and negative. He will complete prednisone taper at discharge. Continue oxygen support as needed/tolerating, wean down as tolerating. Target saturation 90%. Please follow-up renal function to confirm resolution of ABDI. Physical Exam Const: COMMON NORMALS: patient oriented x3 and alert GENERAL APPEARANCE: cooperative and disheveled ORIENTATION/CONSCIOUSNESS: Yes awake HENMT: COMMON NORMALS: oropharynx normal Neck/C-Spine: COMMON NORMALS: no JVD Resp: COMMON NORMALS: normal respiratory effort and clear to auscultation bilaterally AUSCULTATION: clear to auscultation bilaterally and diminished lung sounds Cardio: COMMON NORMALS: no JVD, regular rhythm, S1 normal heart sound present, S2 normal heart sound present and No murmurs present (Cardio) RHYTHM: regular rhythm HEART SOUNDS: S1 normal heart sound present and S2 normal heart sound present GI: COMMON NORMALS: Normal to inspection, nondistended, normoactive bowel sounds present, Soft to palpation and non-tender PALPATION: Yes Soft to palpation Extremity: COMMON NORMALS: no joint enlargement and no pedal edema Neuro: COMMON NORMALS: patient oriented x3 and moves all extremities SENSORIUM/ORIENTATION: Yes alert Skin: COMMON NORMALS: no rashes or lesions noted GENERAL SKIN EXAM: no r ashes or lesions noted Discharge Data Studies Completed and Pending Completed Studies During Hospitalization Category Date Time Status CT head wo con* [id number] Stat Cat Scan 03/17/23 18:07 Completed XR chest 1V portable [id number] Stat Exams 03/17/23 16:25 Completed CV. echo complete* [id number] Routine Ultrasound 03/21/23 15:30 Completed Radiology Impressions Chest X-Ray 03/17/23 16:25 IMPRESSION: 1. Pulmonary emphysema with hyperinflation of the lungs 2. Mild right basilar infiltrate 3. Small bilateral pleural effusions. Head CT 03/17/23 18:07 IMPRESSION: No acute intracranial finding. Laboratory Results WBC 13.15 10^3/uL (3.29-11.43) H 03/26/23 04:23 RBC 3.76 10^6/uL (3.85-5.65) L 03/26/23 04:23 Hgb 12.10 g/dL (11.27-16.99) 03/26/23 04:23 Hct 38.3 % (37-53) 03/26/23 04:23 MCV 101.9 fl (82-101) H 03/26/23 04:23 MCH 32.2 pg (27-33) 03/26/23 04:23 MCHC 31.6 g/dL (30-55) 03/26/23 04:23 RDW 12.6 % (12.1-15.1) 03/26/23 04:23 Plt Count 265 10^3/cmm (157-399) 03/26/23 04: MPV 9.7 fL (7.4-10.4) 03/26/23 04: Neut % (Auto) 86.4 % 03/26/23 04:23 Lymph % (Auto) 5.2 % 03/26/23 04:23 [place] % (Auto) 7.5 % 03/26/23 04:23 Eos % (Auto) 0.3 % 03/26/23 04:23 Baso % (Auto) 0.1 % 03/26/23 04:23 Neut # (Auto) 11.37 10^3/uL (1.8-7.7) H 03/26/23 04: Lymph # (Auto) 0.7 10^3/uL (0.8-4.8) L 03/26/23 04:23 [place] # (Auto) 1.0 10^3/uL (0.2-0.9) H 03/26/23 04:23 Eos # (Auto) 0.0 10^3/uL (0.0-0.8) 03/26/23 04:23 Baso # (Auto) 0.0 10^3/uL (0.0-0.1) 03/26/23 04: Nucleated RBC % (auto) 0 % 03/26/23 04: Nucleated RBCs # 0.0 /100WBC 03/26/23 04:23 Specimen Type Arterial 03/17/23 18:17 Sample Site Radial, left 03/17/23 18:17 ABG pH 7.34 (7.35-7.45) L 03/17/23 18:17 ABG pCO2 55.6 mmHg (35-45) H 03/17/23 18:17 ABG pO2 112.0 mmHg (80.0-100.0) H 03/17/23 18:17 ABG HCO3 29.6 mmol/L (22-26) H 03/17/23 18:17 ABG O2 Saturation 98.5 03/17/23 18:17 ABG Base Excess 2.4 mmol/L (-2.0-2.0) H 03/17/23 18:17 [place] Test Pos 03/17/23 18:17 A-a O2 Gradient 9.9 mmHg (5-10) 03/17/23 18:17 Hematocrit 41.8 % (42-52) L 03/17/23 18:17 Hgb O2 Saturation 96.4 % (95-100) 03/17/23 18:17 Carboxyhemoglobin 1.8 %THgb (0.4-20.1) 03/17/23 18:17 Methemoglobin 0.4 % (0.4-1.5) 03/17/23 18:17 Total Hemoglobin 13.6 g/dL (14-18) L 03/17/23 18:17 Sodium 136.0 mmol/L (131-143) 03/17/23 18:17 Potassium 4.8 mmol/L (3.5-5.0) 03/17/23 18:17 Glucose 86.0 mg/dL (70-115) 03/17/23 18:17 Ionized Calcium 1.2 mmol/L (1.1-1.4) 03/17/23 18:17 O2 Delivery Device Nc 03/17/23 18:17 O2 Liters/Min 4.0 % 03/17/23 18:17 FiO2 36.0 % 03/17/23 18:17 Histology Specialist ID Cak 03/17/23 18:17 Sodium 136 mmol/L (136-145) 03/24/23 04:57 Potassium 4.2 mmol/L (3.5-5.1) 03/24/23 04:57 Chloride 91 mmol/L (98-107) L 03/24/23 04:57 Carbon Dioxide 40 mmol/L (22-29) H 03/24/23 04:57 Anion Gap 9.2 (5-19) 03/24/23 04:57 BUN 12 mg/dL (8-23) 03/24/23 04:57 Creatinine 0.5 mg/dL (0.7-1.2) L 03/24/23 04:57 GFR Calculation 164.4 mL/min (90-130) H 03/24/23 04:57 Glucose 83 mg/dL (65-115) 03/24/23 04:57 Calculated Osmolality 281 mOsm/kg (285-295) L 03/24/23 04:57 Lactic Acid 1.2 mmol/L (0.5-2.2) 03/17/23 18:43 Calcium 8.0 mg/dL (8.5-10.5) L 03/24/23 04:57 Phosphorus 5.0 mg/dL (2.5-4.5) H 03/18/23 04:23 Magnesium 2.0 mg/dL (1.7-2.3) 03/18/23 04:23 Total Bilirubin 0.3 mg/dL (0.15-1.2) 03/24/23 04:57 AST 19 U/L (0-40) 03/24/23 04:57 ALT 17 U/L (0-41) 03/24/23 04:57 Alkaline Phosphatase 63 U/L (40-130) 03/24/23 04:57 Creatine Kinase 224 U/L (39-308) 03/17/23 17:12 CK-MM (CK-3) Cancelled 03/17/23 17:12 CK-MB (CK-2) Cancelled 03/17/23 17:12 CK-BB (CK-1) Cancelled 03/17/23 17:12 Creatine Kinase Interp Cancelled 03/17/23 17:12 Troponin T Baseline 41 ng/L (0-15) H 03/24/23 04:57 Troponin T 120 Minute 41.01 ng/L (0-15) H 03/24/23 06:59 Delta Troponin T 0.01 ABS# (0-10) 03/24/23 06:59 Troponin T Hi Sens 6Hr 42.81 ng/L (0-15) H 03/24/23 10:43 Troponin T Hi Sens 6Hr Delta 1.81 ng/L (0-12) 03/24/23 10:43 NT-Pro-B Natriuret Pep 41333 pg/mL (0-125) H 03/21/23 04:05 Total Protein 5.0 g/dL (6.6-8.7) L 03/24/23 04:57 Albumin 2.8 g/dL (3.5-5.2) L 03/24/23 04:57 Globulin 2.2 g/dL (1.3-4.6) 03/24/23 04:57 Procalcitonin 0.36 ng/mL (0-0.5) 03/18/23 04:23 Urine Color Ar[place] (Yellow) 03/17/23 16:53 Urine Appearance Clear (CLEAR) 03/17/23 16:53 Urine pH 5 (5-7) 03/17/23 16:53 Ur Specific [place] 1.020 (1.005-1.030) 03/17/23 16:53 Urine Protein Trace (Negative) 03/17/23 16:53 Urine Glucose (UA) Norm (Normal) 03/17/23 16:53 Urine Ketones Negative (Negative) 03/17/23 16:53 Urine Blood Neg (Negative) 03/17/23 16:53 Urine Nitrate Negative (Negative) 03/17/23 16:53 Urine Bilirubin Neg (Negative) 03/17/23 16:53 Urine Urobilinogen 1 mg/dL (Negative) H 03/17/23 16:53 Ur Leukocyte Esterase Negative (Negative) 03/17/23 16:53 Urine RBC None /hpf (0-2) 03/17/23 16:53 Urine WBC 0-4 /hpf (0-5) H 03/17/23 16:53 Ur Squamous Epith Cells None /hpf (0-5) 03/17/23 16:53 Amorphous Sediment Not Reportable 03/17/23 16:53 Urine Bacteria Trace /hpf (NONE) 03/17/23 16:53 Hyaline Casts 5-10 /lpf H 03/17/23 16:53 Coronavirus 229E (PCR) Not detected (NOT DETECT) 03/18/23 01:40 SARS-CoV-2 (PCR) Not detected (NOT DETECT) 03/18/23 01:40 SARS-CoV-2 Ag (Rapid) negative (Negative) 03/26/23 11:45 Vitals Last Vital Signs Temp 97.9 F 03/26/23 11:19 Pulse 88 03/26/23 11:19 Resp 18 03/26/23 11:19 BP 129/67 03/26/23 11:19 Pulse Ox 92 03/26/23 11:19 O2 Del Method Nasal Cannula 03/26/23 11:19 O2 Flow Rate 2 03/26/23 08:25 Discharge Plan Discharge Patient Disposition: Xfer SNF Condition: Stable Prescriptions: New prednisone 10 mg tablet See Rx Instructions .ROUTE .COMPLEX Qty: 7 0RF Rx Instructions: then 2 tab for 2 days, then 1 tab for 2 days, then 1/2 tab for 2 days. Continued potassium chloride 8 mEq capsule, extended release 8 meq PO DAILY cetirizine 10 mg tablet 10 mg PO DAILY omeprazole 20 mg capsule,delayed release(DR/EC) 20 mg PO DAILY Ventolin HFA 90 mcg/actuation HFA aerosol inhaler 2 puff INHALATION Q4H PRN (Reason: Shortness Of Breath) Spiriva with HandiHaler 18 mcg capsule, w/inhalation device 1 cap INHALATION DAILY Symbicort 160-4.5 mcg/actuation HFA aerosol inhaler 2 puff INHALATION BID Combivent Respimat 20-100 mcg/actuation mist 1 puff INHALATION QID PRN (Reason: Shortness Of Breath) Discharge Orders: Discharge Order (Routine); Ordered 03/26/23 Ordered By: Gideon Peralta Referrals: [facility] [Outside] Kaitlyn Garcia FNP [Primary Care Provider] - 4-7 days (Will see in SNF) Discharge Activity: As per PT/OT instructions and Oxygen as instructed Activity Restrictions/Additional Instructions: Continue nasal cannula oxygen 2 L as needed, wean down as tolerating. Target saturation 90%. Please follow-up kidney function in 1 week to reassess for resolved ABDI. Avoid NSAIDs. Continue to support smoking cessation. Discharge Attestations Time Spent in Discharge Care*: greater than 30 min Quality Metrics Clinical Quality Measures [ No reported AMI, CVA or VTE this stay] Coding Level of Care Code 14921 Diagnoses Acute exacerbation of chronic obstructive airways disease J44.1 Community acquired pneumonia J18.9 Altered mental status R41.82 Acute kidney injury N17.9 Acute dehydration E86.0 Diarrhea R19.7
== END 2023-03-26 13:50 | disposition skilled nursing facility (03) ==
LOC: ER 20:21 → MEDSURG 20:26
PROVIDERS: Emergency Medicine; Family Medicine; Student in an Organized Health Care Education/Training Program; Admitting Provider Hospitalist; Emergency Provider Emergency Medicine; PCP Nurse Practitioner Family; Visit Provider Internal Medicine
DX: J44.1 Chronic obstructive pulmonary disease with (acute) exacerbation (principal); J18.9 Pneumonia, unspecified organism; R41.82 Altered mental status, unspecified; N17.9 Acute kidney failure, unspecified; E86.0 Dehydration; R19.7 Diarrhea, unspecified; Z87.891 Personal history of nicotine dependence; Z99.81 Dependence on supplemental oxygen; J96.22 Acute and chronic respiratory failure with hypercapnia; I49.8 Other specified cardiac arrhythmias
CPT/HCPCS: 36415; 36600; 70450; 71045; 80051; 80053; 81001; 82330; 82550; 82805; 83605; 83735; 83880; 84100; 84145; 84484; 85025; 87040; 87077; 87150; 87186; 87205; 87426; 87449; 87493; 87635; 93005; 93306; 94640; 96361; 96365; 96367; 96372; 96375; 97110; 97116; 97161; 97166; 97530; 97535; 99285; G0378; J0456; J0696; J1100; J1650; J1940; J7030; J7050; J7120; J7512; J7626

== ENCOUNTER → 2023-10-17 08:43 | Outpatient (BNVA) | payer MEDICARE, MEDICAID, SELFPAY | PROVIDERS: PCP Nurse Practitioner Family; Visit Provider Nurse Practitioner Family | DX: L30.9 Dermatitis, unspecified (principal); L57.8 Other skin changes due to chronic exposure to nonionizing radiation; D22.5 Melanocytic nevi of trunk; L81.4 Other melanin hyperpigmentation | CPT/HCPCS: 11104; 99204 ==

== ENCOUNTER → 2023-11-07 14:41 | Outpatient (BNVA) | payer MEDICARE, MEDICAID, SELFPAY | PROVIDERS: PCP Nurse Practitioner Family; Visit Provider Dermatology | DX: L20.89 Other atopic dermatitis (principal) | CPT/HCPCS: 99214 ==

== ENCOUNTER → 2023-12-05 14:01 | Outpatient (BNVA) | payer MEDICARE, MEDICAID, SELFPAY | PROVIDERS: PCP Nurse Practitioner Family; Visit Provider Nurse Practitioner Family | DX: L30.9 Dermatitis, unspecified (principal); L85.3 Xerosis cutis; D22.5 Melanocytic nevi of trunk; L81.4 Other melanin hyperpigmentation | CPT/HCPCS: 11104; 99214 ==

== ENCOUNTER → 2024-01-20 09:09 | Outpatient (BNVA) | payer MEDICARE, MEDICAID, SELFPAY | PROVIDERS: PCP Nurse Practitioner Family; Visit Provider Nurse Practitioner Family | DX: L20.89 Other atopic dermatitis (principal); L29.8 Other pruritus; L85.3 Xerosis cutis; L59.8 Other specified disorders of the skin and subcutaneous tissue related to radiation | CPT/HCPCS: 99214 ==

== ENCOUNTER → 2024-03-02 13:57 | Outpatient (BNVA) | payer MEDICARE, MEDICAID, SELFPAY | PROVIDERS: PCP Nurse Practitioner Family; Visit Provider Nurse Practitioner Family | DX: D48.5 Neoplasm of uncertain behavior of skin (principal); L20.89 Other atopic dermatitis; L28.0 Lichen simplex chronicus; L29.8 Other pruritus | CPT/HCPCS: 11102; 99214 ==

== ENCOUNTER 2024-09-10 11:47 | Emergency (ER) | payer MEDICARE, MEDICAID, SELFPAY ==
[2024-09-10] VITALS (10 sets, daily range): BP systolic 102–139; BP diastolic 56–80; PULSE 57–91; RESP 18–20; TEMP 36.7; O2SAT 92–100; BMI 25.7
--- NOTE | 2024-09-10 12:07 | CT_ITS ---
WS: [id number] CT HEAD TECHNIQUE: Noncontrast CT of the head obtained from the skullbase to the vertex. CLINICAL INFORMATION: Weakness, fall COMPARISON: None. DLP: 1109.[address] scans at [facility] use at least one of these dose optimization techniques: automated exposure control; mA and/or kV adjustment per patient size (includes targeted exams where dose is matched to clinical indication); or iterative reconstruction. FINDINGS: No evidence of intracranial hemorrhage or mass effect. Ventricular system and basal cisterns are patent. Mild small vessel changes with mild parenchymal volume loss. Small chronic lacunar infarcts RIGHT cerebellum. Vascular calcification. Paranasal sinuses and mastoid air cells are well aerated. .Normal visualized soft tissues. CT/CT head wo con* [id number] IMPRESSION: 1. No evidence of intracranial hemorrhage or mass effect. 2. Small chronic lacunar infarcts RIGHT cerebellum. 3. No acute intracranial findings.
--- NOTE | 2024-09-10 12:08 | XRR_ITS ---
PROCEDURE INFORMATION: Exam: XR Chest Exam date and time: 09/10/2024 12:15 PM Age: 74 years old Clinical indication: Weakness and blood in urine TECHNIQUE: Imaging protocol: Radiologic exam of the chest. Views: 1 view. COMPARISON: CR (CHEST, ) 03/17/2023 5:14 PM FINDINGS: Lungs: Stable moderate hyperinflation of the lungs. Interval development of patchy alveolar airspace disease in the left lingula and left lower lobe. Findings are suspicious for pneumonia. Pleural spaces: Interval development of a small left pleural effusion. Heart/Mediastinum: Stable mild enlargement of the cardiac silhouette. Mediastinal contours are unremarkable. Vasculature: Stable vascular calcifications in the aorta. Bones/joints: Unremarkable for age. XR/XR chest 1V portable [id number] IMPRESSION: 1. Interval development of patchy alveolar airspace disease in the left lingula and left lower lobe. Findings are suspicious for pneumonia. Recommend followup chest imaging to insure resolution of these findings. 2. Interval development of a small left pleural effusion. 3. Incidental/nonacute findings are listed in the report.
--- NOTE | 2024-09-10 12:12 | PC.PHAR ---
Patient is from [facility]
--- NOTE | 2024-09-10 12:46 | W.ED.WEAKNES ---
HPI - Weakness General: Chief complaint: Weakness Stated complaint: generalized weakness, blood in urine Time Seen by Provider: 09/10/24 12:07 History of Present Illness: Patient presents to the ER by EMS with complaints of weakness going on 3 days at the skilled nursing. Patient stated he fell a few weeks ago hit his head after that. Nursing also reports the patient has had blood in his urine. Patient wears 3 L of oxygen per nasal cannula at all times. Patient is very quiet does not speak very much and only answers questions with simple answers and does not provide much history information. It is appropriate Review of Systems General: Reports: 10 or more systems reviewed and unremarkable except in HPI and below PFSH ED PFSH: Medical History History of smoking History of echocardiogram 2017 EF 65%, grade I/IV diastolic dysfunction COPD (chronic obstructive pulmonary disease) Surgical History No history of previous surgery Family History Mother CAD (coronary artery disease) Social History Smoking and tobacco/nicotine status: former use of tobacco/nicotine Alcohol intake: unknown Substance/Drug Use: unknown Additional social history: Lives in a house without running water, a neighbor brings him water. He has electricity. Household members: none Physical Exam Const: COMMON NORMALS: no acute distress, average body habitus, patient oriented x3, no limitations, healthy appearing, alert and well nourished HENMT: COMMON NORMALS: normocephalic, atraumatic, hearing grossly normal bilaterally, external ears normal and Normal external nose present HEAD & SCALP: normocephalic and atraumatic NOSE: Normal external nose present EXTERNAL EAR: Yes external ears normal Neck/C-Spine: COMMON NORMALS: full ROM, no lymphadenopathy, supple, no meningeal signs, no JVD and Thyroid normal THYROID: Thyroid normal Chest: COMMONS NORMALS: normal inspection of the chest and normal palpation of entire chest wall Resp: COMMON NORMALS: normal respiratory effort, No retractions and No use of accessory muscles; negative for clear to auscultation bilaterally (Decreased breath sounds bilaterally) AUSCULTATION: not clear to auscultation bilaterally (Decreased breath sounds bilaterally) Cardio: COMMON NORMALS: no JVD, regular rate, regular rhythm, S1 normal heart sound present, S2 normal heart sound present, No gallops present (Cardio), No clicks present (Cardio), No murmurs present (Cardio) and No rub (Cardio) RATE: regular rate RHYTHM: regular rhythm HEART SOUNDS: S1 normal heart sound present and S2 normal heart sound present GI: COMMON NORMALS: Normal to inspection, nondistended, normoactive bowel sounds present, Soft to palpation, non-tender, No hepatosplenomegaly present and no masses PALPATION: Yes Soft to palpation and Yes No hepatosplenomegaly present Neuro: COMMON NORMALS: patient oriented x3 SENSORIUM/ORIENTATION: Yes alert MENINGEAL SIGNS: Yes no meningeal signs Course Vital Signs: Vital signs: Vital Signs Temperature 98.0 F 09/10/24 11:57 Pulse Rate 65 09/10/24 15:30 Respiratory Rate 20 H 09/10/24 14:00 Blood Pressure 136/72 09/10/24 15:30 Pulse Oximetry 100 09/10/24 15:30 Oxygen Delivery Me thod Nasal Cannula 09/10/24 15:30 Oxygen Flow Rate 2 09/10/24 15:30 MDM - Weakness Medical Decision Making Head CT was negative, chest x-ray showed possible development of patchy airspace disease in the left lingula and left lower lobe suspicious for pneumonia, white blood cell count 4.95, hemoglobin 10.2, lactic acid 1.1, BUN/creatinine 38 and 1.1, troponin baseline 60, 2-hour troponin 59, BNP 2341, viral panel negative, patient was given 3.375 g of Zosyn as it should cover both pneumonia and urinary tract infection. Patient be discharged on levofloxacin. Medical Records I reviewed the patient's medical records. Lab Data I reviewed the patient's lab results. 09/10/24 12:52 09/10/24 12:[address] 09/10/24 12:07 IMPRESSION: 1. No evidence of intracranial hemorrhage or mass effect. 2. Small chronic lacunar infarcts RIGHT cerebellum. 3. No acute intracranial findings. Chest X-Ray 09/10/24 12:08 IMPRESSION: 1. Interval development of patchy alveolar airspace disease in the left lingula and left lower lobe. Findings are suspicious for pneumonia. Recommend followup chest imaging to insure resolution of these findings. 2. Interval development of a small left pleural effusion. 3. Incidental/nonacute findings are listed in the report. Laboratory Results WBC 4.95 10^3/uL (3.29-11.43) 09/10/24 12:52 RBC 3.25 10^6/uL (3.85-5.65) L 09/10/24 12:52 Hgb 10.20 g/dL (11.27-16.99) L 09/10/24 12:52 Hct 33.9 % (37-53) L 09/10/24 12:52 MCV 104.3 fl (82-101) H 09/10/24 12:52 MCH 31.4 pg (27-33) 09/10/24 12:52 MCHC 30.1 g/dL (30-55) 09/10/24 12:52 RDW 12.9 % (12.1-15.1) 09/10/24 12:52 Plt Count 207 10^3/cmm (157-399) 09/10/24 12:52 MPV 9.1 fL (7.4-10.4) 09/10/24 12:52 Neut % (Auto) 72.6 % 09/10/24 12:52 Lymph % (Auto) 12.5 % 09/10/24 12:52 [place] % (Auto) 12.1 % 09/10/24 12:52 Eos % (Auto) 0.6 % 09/10/24 12:52 Baso % (Auto) 0.6 % 09/10/24 12:52 Neut # (Auto) 3.59 10^3/uL (1.8-7.7) 09/10/24 12:52 Lymph # (Auto) 0.6 10^3/uL (0.8-4.8) L 09/10/24 12:52 [place] # (Auto) 0.6 10^3/uL (0.2-0.9) 09/10/24 12:52 Eos # (Auto) 0.0 10^3/uL (0.0-0.8) 09/10/24 12:52 Baso # (Auto) 0.0 10^3/uL (0.0-0.1) 09/10/24 12:52 Nucleated RBC % (auto) 0 % 09/10/24 12:52 Nucleated RBCs # 0.0 /100WBC 09/10/24 12:52 Sodium 137 mmol/L (136-145) 09/10/24 12:52 Potassium 4.5 mmol/L (3.5-5.1) 09/10/24 12:52 Chloride 98 mmol/L (98-107) 09/10/24 12:52 Carbon Dioxide 28 mmol/L (22-29) 09/10/24 12:52 Anion Gap 15.5 (5-19) 09/10/24 12:52 BUN 38 mg/dL (8-23) H 09/10/24 12:52 Creatinine 1.1 mg/dL (0.7-1.2) 09/10/24 12:52 GFR Calculation Not Reportable 09/10/24 12:52 Glucose 101 mg/dL (65-115) 09/10/24 12:52 Calculated Osmolality 293 mOsm/kg (285-295) 09/10/24 12:52 Lactic Acid 1.1 mmol/L (0.5-2.2) 09/10/24 12:52 Calcium 8.9 mg/dL (8.5-10.5) 09/10/24 12:52 Magnesium 1.8 mg/dL (1.7-2.3) 09/10/24 12:52 Total Bilirubin 0.2 mg/dL (0.15-1.2) 09/10/24 12:52 AST 36 U/L (0-40) 09/10/24 12:52 ALT 13 U/L (0-41) 09/10/24 12:52 Alkaline Phosphatase 89 U/L (40-130) 09/10/24 12:52 Troponin T Baseline 60 ng/L (0-15) H 09/10/24 12:52 Troponin T 120 Minute 59.36 ng/L (0-15) H 09/10/24 15:10 Delta Troponin T -0.64 ABS# (0-10) L 09/10/24 15:10 NT-Pro-B Natriuret Pep 2341 pg/mL (0-125) H 09/10/24 12:52 Total Protein 7.2 g/dL (6.6-8.7) 09/10/24 12:52 Albumin 3.0 g/dL (3.5-5.2) L 09/10/24 12:52 Globulin 4.2 g/dL (1.3-4.6) 09/10/24 12:52 Urine Color Yellow (Yellow) 09/10/24 12:54 Urine Appearance Cloudy (CLEAR) A 09/10/24 12:54 Urine pH 5 (5-7) 09/10/24 12:54 Ur Specific Gunter 1.020 (1.005-1.030) 09/10/24 12:54 Urine Protein 1+ (Negative) H 09/10/24 12:54 Urine Glucose (UA) Norm (Normal) 09/10/24 12:54 Urine Ketones Negative (Negative) 09/10/24 12:54 Urine Blood 2+ (Negative) H 09/10/24 12:54 Urine Nitrate Positive (Negative) A 09/10/24 12:54 Urine Bilirubin Neg (Negative) 09/10/24 12:54 Urine Urobilinogen Norm mg/dL (Negative) 09/10/24 12:54 Ur Leukocyte Esterase 2+ (Negative) H 09/10/24 12:54 Urine RBC None /hpf (0-2) 09/10/24 12:54 Urine WBC Too numerous to cnt /hpf (0-5) H 09/10/24 12:54 Ur Squamous Epith Cells None /hpf (0-5) 09/10/24 12:54 Amorphous Sediment Not Reportable 09/10/24 12:54 Urine Bacteria 4+ /hpf (NONE) H 09/10/24 12:54 Coronavirus (PCR) Negative (Negative) 09/10/24 12:35 Influenza A (PCR) Negative (Negative) 09/10/24 12:35 Influenza Type B (PCR) Negative (Negative) 09/10/24 12:35 RSV (PCR) Negative (Negative) 09/10/24 12:35 All radiology interpretation(s) finalized by discharge Discharge Plan Discharge Patient Disposition: Home Clinical Impression: Urinary tract infection in male Left lower lobe pneumonia Qualifiers: Pneumonia type: due to unspecified organism Qualified Code(s): J18.9 - Pneumonia, unspecified organism Condition: Stable Prescriptions: New levofloxacin 500 mg tablet 500 mg PO DAILY 7 Days Qty: 7 0RF No Action acetaminophen 325 mg Tablet 650 mg PO Q4H PRN (Reason: Pain) albuterol sulfate 2.5 mg /3 mL (0.083 %) solution for nebulization 2.5 mg inhalation Q4H loperamide [Imodium A-D] 2 mg Capsule 2 mg PO Q4H PRN (Reason: Constipation) Rx Instructions: administer after each loose stool until symptoms controlled; do not exceed 8 mg per 24 hrs cetirizine 5 mg Tablet 5 mg PO DAILY ergocalciferol (vitamin D2) [Vitamin D2] 10 mcg (400 unit) Tablet 20 mcg PO DAILY tacrolimus 0.1 % Ointment 1 applic TOPICAL BID clobetasol 0.05 % ointment 1 applic TOPICAL BID calcium carbonate 1,000 mg Tablet 1,000 mg PO DAILY diclofenac sodium [Voltaren] 1 % Gel 2 g TOPICAL TID Rx Instructions: apply to single elbow, wrist or hand; for hand includes palm/fingers/back of hand potassium chloride 8 mEq capsule, extended release 8 meq PO DAILY omeprazole 20 mg capsule,delayed release(DR/EC) 20 mg PO DAILY albuterol sulfate [Ventolin HFA] 90 mcg/actuation HFA aerosol inhaler 2 puff INHALATION Q4H PRN (Reason: Shortness Of Breath) tiotropium bromide [Spiriva with HandiHaler] 18 mcg capsule, w/inhalation device 1 cap INHALATION DAILY budesonide-formoterol [Symbicort] 160-4.5 mcg/actuation HFA aerosol inhaler 2 puff INHALATION BID Combivent Respimat 20-100 mcg/actuation mist 1 puff INHALATION QID PRN (Reason: Shortness Of Breath) Discharge Orders: Discharge ED (Routine); Ordered 09/10/24 Ordered By: Mukesh Gonsalez Referrals: Kaitlyn Garcia FNP [Primary Care Provider] - 1 week Patient Instructions: Urinary Tract Infection in Men (ED), Pneumonia (ED) Activity Restrictions/Additional Instructions: Your evaluation ER showed you may have left lower lobe pneumonia and a urinary tract infection. You have been prescribed levofloxacin. This antibiotic should cover both areas. Please take it as prescribed. Please follow-up with your family practice physician within the next 7 days for further Print Language: Wolof Coding Level of Care Code ED Telegraph And Teletype Operator for Chg Fwd Related Data Home Medications ?Medication ?Instructions ?Recorded ?Confirmed albuterol sulfate 90 mcg/actuation 2 puff inhalation Q4H PRN 03/18/23 09/10/24 aerosol inhaler (Ventolin HFA) Shortness Of Breath budesonide-formoterol HFA 160 2 puff inhalation BID 03/18/23 09/10/24 mcg-4.5 mcg/actuation aerosol inhaler (Symbicort) ipratropium 20 mcg-albuterol 100 1 puff inhalation QID PRN 03/18/23 09/10/24 mcg/actuation mist for inhalation Shortness Of Breath (Combivent Respimat) omeprazole 20 mg capsule,delayed 20 mg PO DAILY 03/18/23 09/10/24 release potassium chloride 8 mEq 8 meq PO DAILY 03/18/23 09/10/24 capsule,extended release tiotropium bromide 18 mcg capsule 1 cap inhalation DAILY 03/18/23 09/10/24 with inhalation device (Spiriva with HandiHaler) acetaminophen 325 mg tablet 650 mg PO Q4H PRN Pain 09/10/24 09/10/24 albuterol sulfate 2.5 mg/3 mL 2.5 mg inhalation Q4H 09/10/24 09/10/24 (0.083 %) solution for nebulization calcium carbonate 1,000 mg tablet 1,000 mg PO DAILY 09/10/24 09/10/24 cetirizine 5 mg tablet 5 mg PO DAILY 09/10/24 09/10/24 clobetasol 0.05 % topical ointment 1 applic topical BID 09/10/24 09/10/24 diclofenac sodium 1 % topical gel 2 g topical TID 09/10/24 09/10/24 ergocalciferol (vitamin D2) 10 mcg 20 mcg PO DAILY 09/10/24 09/10/24 (400 unit) tablet loperamide 2 mg capsule (Imodium 2 mg PO Q4H PRN Constipation 09/10/24 09/10/24 A-D) tacrolimus 0.1 % topical ointment 1 applic topical BID 09/10/24 09/10/24 Previous Rx's ?Medication ?Instructions ?Recorded levofloxacin 500 mg tablet 500 mg PO DAILY 7 days #7 tabs 09/10/24 Allergies Allergy/AdvReac Type Severity Reaction Status Date / Time No Known Allergies Allergy Verified 03/17/23 20:48
[2024-09-10 12:59] LABS: Basophils % 0.6 %; Eosinophils % 0.6 %; Hematocrit 33.9 % (37-53); Lymphocytes # 0.6 10^3/uL (0.8-4.8); Lymphocytes % 12.5 %; Mean Corpuscular HGB Conc 30.1 g/dL (30-55); Mean Corpuscular Hemoglobin 31.4 pg (27-33); Mean Corpuscular Volume 104.3 fl (82-101); Mean Platelet Volume 9.1 fL (7.4-10.4); Monocytes # 0.6 10^3/uL (0.2-0.9); Monocytes % 12.1 %; Neutrophils # 3.59 10^3/uL (1.8-7.7); Neutrophils % 72.6 %; Nucleated Red Blood Cells % 0 %; Platelet Count 207 10^3/cmm (157-399); Red Blood Count 3.25 10^6/uL (3.85-5.65); Red Cell Distribution Width 12.9 % (12.1-15.1); White Blood Count 4.95 10^3/uL (3.29-11.43)
--- NOTE | 2024-09-10 13:14 | ECG_ITS ---
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1950 Requested By: Mukesh Gonsalez Order Number: [id number] Cora MD: RONALD FLORES Measurements Intervals [place] Rate: 76 P: 88 ID: 120 QRS: 70 QRSD: 82 T: 32 QT: 392 QTc: 441 Interpretive Statements SINUS RHYTHM WITH OCCASIONAL VENTRICULAR PREMATURE COMPLEXES POSSIBLE RIGHT VENTRICULAR CONDUCTION DELAY [RSR (QR) IN V1/V2] MODERATE VOLTAGE CRITERIA FOR LVH, CONSIDER NORMAL VARIANT [MEETS CRITERIA IN ONE OF: R(aVL), S(V1), R(V5), R(V5/V6)+S(V1)] ST DEVIATION AND MARKED T-WAVE ABNORMALITY, CONSIDER ANTERIOR ISCHEMIA [-0.5+ mV T-WAVE IN V3/V4] ST DEVIATION AND MODERATE T-WAVE ABNORMALITY, CONSIDER INFERIOR ISCHEMIA [-0.1+ mV T-WAVE IN II/aVF] Compared to ECG 03/24/2023 09:28:23 Ventricular premature complex(es) now present Electronically Signed On 09-12-2024 19:30:47 RADIO DIVISION OFFICER by RONALD FLORES [id number]
[2024-09-10 13:21] LABS: Lactic Sepsis W/Reflex 1.1 mmol/L (0.5-2.2)
[2024-09-10 13:24] LABS: Influenza A NEGATIVE (Negative); Influenza B NEGATIVE (Negative); Respiratory Syncytial Virus Ce NEGATIVE (Negative); SARS-CoV-2 PCR NEGATIVE (Negative)
--- NOTE | 2024-09-10 13:27 | PC.NURSE ---
pt was straight cath for urine. pt has been incontinent of urine. pt has redness and excoration to groin.
[2024-09-10 13:30] LABS: Alanine Aminotransferase 13 U/L (0-41); Alkaline Phosphatase 89 U/L (40-130); Anion Gap 15.5 (5-19); Aspartate Amino Transferase 36 U/L (0-40); Blood Urea Nitrogen 38 mg/dL (8-23); Calcium 8.9 mg/dL (8.5-10.5); Carbon Dioxide 28 mmol/L (22-29); Chloride 98 mmol/L (98-107); Creatinine Clr Calc Pharmacy 53.8639; Globulin 4.2 g/dL (1.3-4.6); Glucose 101 mg/dL (65-115); Magnesium 1.8 mg/dL (1.7-2.3); NT Pro B Type Natriuretic Pept 2341 pg/mL (0-125); Osmolality Calculated 293 mOsm/kg (285-295); Potassium 4.5 mmol/L (3.5-5.1); Sodium 137 mmol/L (136-145); Total Bilirubin 0.2 mg/dL (0.15-1.2); Total Protein 7.2 g/dL (6.6-8.7)
[2024-09-10 13:36] LABS: Add Urine Microscopic? YES; Bilirubin Urine Neg (Negative); Blood Urine 2+ (Negative); Glucose Urine UA Norm (Normal); Ketones Urine Negative (Negative); Leukocyte Esterase Urine 2+ (Negative); Nitrate Urine Positive (Negative); Protein Urine 1+ (Negative); UA Manual Slide Review YES; Urine Appearance Cloudy (CLEAR); Urine Color Yellow (Yellow); Urobilinogen Urine Norm (Negative); WBC Urine TOO NUMEROUS TO CNT /hpf (0-5); pH Urine 5 (5-7)
[2024-09-10 13:37] LABS: Add Urine Culture? Yes; Bacteria Urine 4+ /hpf
[2024-09-10 13:46] LABS: Troponin(5th) Baseline 60 ng/L (0-15)
--- NOTE | 2024-09-10 15:04 | ECG_ITS ---
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1950 Requested By: Mukesh Gonsalez Order Number: [id number] Cora MD: RONALD FLORES Measurements Intervals [place] Rate: 66 P: 83 IL: 139 QRS: 75 QRSD: 84 T: 54 QT: 409 QTc: 431 Interpretive Statements SINUS RHYTHM WITH SINUS ARRHYTHMIA VOLTAGE CRITERIA FOR LVH [MEETS CRITERIA IN ONE OF: R(aVL), S(V1), R(V5), R(V5/V6)+S(V1)] Compared to ECG 09/10/2024 13:14:14 Ventricular premature complex(es) no longer present T-wave abnormality no longer present Possible ischemia no longer present Electronically Signed On 09-12-2024 19:35:21 MERCHANDISER SEASONAL by RONALD FLORES [email or web address]
--- NOTE | 2024-09-10 15:34 | PC.NURSE ---
waiting on blood cultures before starting abts.
[2024-09-10 15:50] LABS: Troponin 5 2HR 59.36 ng/L (0-15)
[2024-09-10 15:53] LABS: Troponin 5 2HR Delta -0.64 ABS# (0-10)
[2024-09-10] MEDS: piperacillin-tazobactam 3.375 GM in sodium chloride 0.9% (plus) 50 ML IV (16:05)
[2024-09-10] MEDS: levoFLOXacin 500 mg Tablet PO (16:06)
--- NOTE | 2024-09-10 16:15 | PC.NURSE ---
spoke to dr. tan, cancel blood cultures.
--- NOTE | 2024-09-10 16:21 | PC.NURSE ---
pt report called to [facility] at a nurse Radha at [phone]. [facility] have no transport for this pt. pt's family lives in [place]. Working on transport.
--- NOTE | 2024-09-10 17:01 | PC.NURSE ---
iv removed with catheter intact.setting up transport, spoke to [facility] and they state that dispatch will contact us with an ems ride.
[2024-09-10 20:06] LABS: Troponin 5 6HR 57.07 ng/L (0-15)
[2024-09-10 20:07] LABS: Troponin 5 6HR Delta -2.93 ng/L (0-12)
== END 2024-09-10 21:58 | disposition home or self-care (01) ==
PROVIDERS: Emergency Provider Emergency Medicine; PCP Nurse Practitioner Family
DX: N39.0 Urinary tract infection, site not specified (principal); J18.9 Pneumonia, unspecified organism; Z11.52 Encounter for screening for COVID-19; Z87.891 Personal history of nicotine dependence; J44.9 Chronic obstructive pulmonary disease, unspecified
CPT/HCPCS: 36415; 70450; 71045; 80053; 81001; 83605; 83735; 83880; 84484; 85025; 87077; 87086; 87186; 87637; 93005; 96374; 99285; J2543

== ENCOUNTER 2025-06-14 02:30 | Inpatient (IN) | payer MEDICARE, MEDICAID, SELFPAY ==
[2025-06-14] VITALS (19 sets, daily range): BP systolic 97–135; BP diastolic 61–81; PULSE 75–110; RESP 12–27; TEMP 35.9–36.6; O2SAT 90–98; BMI 25.0
--- OUTSIDE RECORDS SUMMARY | 2025-06-14 02:40 | XMS_ITS | Data Portability ---
Author Organization [facility] Jessica Martinez, [facility] Address [address] [place] [address] Assessment Encounter Date Assessment Date Assessment LastModified by Organization Details LastModified Time 11/13/2024 11/13/2024 A Care Coordination Assessment form was filled out as part of this patient's office visit today. [email or web address] Not available 11/13/2024 14:39:50 Plan of Treatment Reminders Order Date Submit Date Provider Last Modified By Organization Details Last Modified Time Details Appointments None record ed. Lab None record ed. Referral None record ed. Procedures None record ed. Surgeries None record ed. Imaging None record ed. Medication Orders None record ed. Patient TargetsNo targets recorded. Patient Instructions Encounter Date Encounter Id Patient Instructions Last Modified By Organization Details Last Modified Time 11/13/2024 [id number] smoking cessatio n counseling, greater than 3 minutes up to 10 minutes* [email or web address] Not available 11/23/2024 09:49:22 Reason for Referral None Reported. Problems Name Problem SNOMED Code Status Onset Date Resolution Date Notes Provider Name and Address Organization Details Recorded Time Acute kidney injury 14797820 [facility] Acute exacerbatio n of chronic obstructive pulmonary disease 135278926 [facility] 11:[facility]28 Dehydration 34906295 [facility] 11:36[facility]49 Community acquired pneumonia 927848504 Kolby fair [facility] 5 11:36:43 Altered mental status 915091581 Active Marilyn Patel null, [facility] 5 11:36:40 Diarrhea 21219366 [facility] 11:[facility] Urinary tract infectious disease 05280003 Active Marilyn Patel null, [facility] 5 11:37:12 Acute on chronic hypercapnic respiratory failure 7619515202959 [facility] 11:36:36 Chronic obstructive pulmonary disease 96484067 Active 2024 Marilyn Patel [facility] 5 14:51:24 Impaired cognition 230324464 Active 2024 Marilyn Patel null, [facility] 5 14:52:08 Allergic rhinitis 39297764 Active 2024 Marilyn Patel null, [facility] 5 14:52:19 Gastroesoph ageal reflux disease without esophagitis 581603689 Active 2024 Marilyn Patel null, [facility] 5 14:52:34 Pain 92741042 Active 2024 Marilyn Patel null, [facility] 5 14:52:52 Atopic dermatitis 10029801 Active 2024 [facility] 14:53:08 Muscle weakness 45102867 Active 2024 [facility] 14:53:21 Oropharynge al dysphagia 85936442 [facility] 2024 [facility] 14:53:43 Dyspnea 051744623 Active 2024 Marilyn Patel [facility] 14:53:51 Smoker 69699636 Active 2024 Marilyn Patel [facility] 11:37:08 Problem Notes None recorded. Procedures Surgical History Date Name Laterality Status Provider Name and Address Organization Details Recorded Time 02/19/2025 Joint Inj [place]- Shoulder, Hip, Knee completed Harlan Chan DO [address] [place] [address], [phone], [facility], GhadaLNanci 02/19/2025 15:30:52 Imaging Results None recorded. Procedure Notes None recorded. Medical Equipment None Reported. Allergies Allergen ID Allergen Name Allergen Category Reaction Reaction Severity Criticality Documentation Date Start Date Code Code System Note Provider Name and Address Organization Details Recorded Time 15587 No known allergy (situatio n) Not available Not available Not available Not available 09/18/2024 [id number] SNOMED [facility] 11:33:45 Medications Name Sig Start Date Stop Date Status Note LastModified by Organization Details LastModified Time acetaminoph en 325 mg tablet Take 2 tablets every 4 hours by oral route as needed. active Not Available Not Available No t Available albuterol sulfate 2.5 mg/3 mL (0.083 %) solution for nebulizatio n Inhale 3 mL every 4 hours by nebulizat ion route as needed. active Not Available Not Available No t Available potassium chloride ER 8 mEq capsule,ext ended release Take 1 capsule every day by oral route. active Not Available Not Available No t Available cetirizine 10 mg tablet Take 1 tablet every day by oral route. active Not Available Not Available No t Available prednisone 20 mg tablet 09/18 completed Not Available Not Available Not Available clobetasol 0.05 % topical cream 08/14 completed Not Available Not Available Not Available triamcinolo ne acetonide 0.1 % topical cream 08/14 completed Not Available Not Available Not Available Imodium A-D 2 mg tablet Take 2 tablets as needed by oral route as directed. active Not Available Not Available No t Available tacrolimus 0.1 % topical ointment APPLY A THIN LAYER TO ARMS, LEGS, AND TRUNK TOPICALLY TWO TIMES A DAY 7 DAYS ON AND 7 DAYS OFF FOR RASH active Not Available Not Available No t Available omeprazole 20 mg capsule,del ayed release Take 1 capsule every day by oral route. active Not Available Not Available No t Available hydroxyzine HCl 25 mg tablet 08/14 completed Not Available Not Available Not Available mupirocin 2 % topical ointment 08/14 completed Not Available Not Available Not Available clobetasol 0.05 % topical ointment APPLY TO ARMS, LEGS, AND TRUNK TOPICALLY 2 TIMES PER DAY 7 DAYS ON AND 7 DAYS OFF FOR RASH active Not Available Not Available No t Available levofloxaci n 500 mg tablet 09/18 completed Not Available Not Available Not Available hydroxyzine HCl 10 mg tablet 08/14 completed Not Available Not Available Not Available doxycycline hyclate 100 mg tablet 09/18 completed Not Available Not Available Not Available Ventolin HFA 90 mcg/actuati on aerosol inhaler Inhale 2 puffs every 4 hours by inhalatio n route as needed. active Not Available Not Available No t Available Spiriva with HandiHaler 18 mcg and inhalation capsules Inhale 1 capsule every day by inhalatio n route. active Not Available Not Available No t Available calcium carbonate give 1,000mg by mouth daily active Not Available Not Available No t Available Symbicort 160 mcg-4.5 mcg/actuati on HFA aerosol inhaler Inhale 2 puffs twice a day by inhalatio n route. active Not Available Not Available No t Available Vitamin D2 GIVE 800 IU BY MOUTH ONE TIME A DAY FOR OSTEOPENI A active Not Available Not Available No t Available Combivent Respimat 20 mcg-100 mcg/actuati on solution for inhalation Inhale 1 puff every 6 hours by inhalatio n route as needed. active Not Available Not Available No t Available Voltaren Arthritis Pain 1 % topical gel APPLY TO LEFT SHOULDER TOPICALLY THREE TIMES A DAY FOR PAIN IN SHOULDER active Not Available Not Available No t Available Vitals Date Recorded Body height Body mass index (BMI) Body weight Oxygen saturation Oxygen saturation in Arterial blood by Pulse oximetry Heart rate Respiratory rate Body temperature Systolic And Diastolic Provider Name and Address Organization Details Last Updated DateTime 5 162.56 cm 22 kg/m2 27435.8 2 g 91 % 91 % 80 /min 21 /min 98.3 [degF] 134/74 mm[Hg] [facility] 5 10:27:58 Date Recorded Body height Body mass index (BMI) Body weight Oxygen saturation Oxygen saturation in Arterial blood by Pulse oximetry Heart rate Respiratory rate Body temperature Systolic And Diastolic Provider Name and Address Organization Details Last Updated DateTime 5 162.56 cm 22.3 kg/m2 41747.0 1 g 90 % 90 % 75 /min 18 /min 97 [degF] 130/70 mm[Hg] [facility] 5 10:18:06 Date Recorded Body height Body mass index (BMI) Body weight Oxygen saturation Oxygen saturation in Arterial blood by Pulse oximetry Heart rate Respiratory rate Body temperature Systolic And Diastolic Provider Name and Address Organization Details Last Updated DateTime 5 162.56 cm 22.5 kg/m2 83002.6 g 90 % 90 % 88 /min 20 /min 97.3 [degF] 132/72 mm[Hg] [facility] 5 11:17:26 Date Recorded Body height Body mass index (BMI) Body weight Oxygen saturation Oxygen saturation in Arterial blood by Pulse oximetry Heart rate Respiratory rate Body temperature Systolic And Diastolic Provider Name and Address Organization Details Last Updated DateTime 5 162.56 cm 22.5 kg/m2 12253.6 g 90 % 90 % 67 /min 21 /min 97.6 [degF] 130/60 mm[Hg] [facility] 5 10:41:41 Date Recorded Body height Body mass index (BMI) Body weight Oxygen saturation Oxygen saturation in Arterial blood by Pulse oximetry Heart rate Respiratory rate Body temperature Systolic And Diastolic Provider Name and Address Organization Details Last Updated DateTime 5 162.56 cm 23.7 kg/m2 25339.7 5 g 96 % 96 % 86 /min 17 /min 97.4 [degF] 130/74 mm[Hg] Marilyn Patel [facility] 5 10:10:26 Social History None recorded. Functional Status None recorded. Mental Status None recorded. Family History Nothing Reported. Medical History No medical history recorded. Immunizations Vaccine Type Date Status Note Provider Nam e and Address Organization Details Recorded Time Influenza, split virus, quadrivalent, preservative [address] [facility] 08/14/2024 16:34:29 Tdap [address] [facility] 08/14/2024 16:34:29 Pneumococcal conjugate PCV [address] [facility] 08/14/2024 16:34:29 Influenza, split virus, trivalent, PF [address] [facility] 08/14/2024 16:34:29 Influenza, split virus, quadrivalent, PF [address] [facility] 08/14/2024 16:34:29 Past Encounters Encounter ID Performer Location Encounter Start Date Encounter Closed Date Diagnosis/Indication Diagnosis SNOMED-CT Code Diagnosis ICD10 Code Diagnosis IMO Codes Diagnosis Note [id number] Harlan Chan DO [facility] ([facility]) [address] [place] [address] 08/14/2024 09:38:05 08/24/2024 06:29:36 Chronic obstructive pulmonary disease 99998316 J44.9 stable on inhalers. Using O2 intermitte ntly. Gastroesop hageal reflux disease without esophagitis 339637385 K21.9 stable on Omeprazole . Smoker 77234774 F17.200 I counseled patient on smoking risks, hazards, complicati ons, and associated illnesses. We discussed smoking cessation options. The patient will work on cutting back but is not ready to quit. We spent 4 minutes discussing this. All questions were addressed. [id number] Harlan Chan DO [facility] ([facility]) [address] [place], [place] [address] 09/18/2024 10:29:15 09/21/2024 13:05:58 Chronic obstructive pulmonary disease 65441735 J44.9 stable on inhalers. Using O2 intermitte ntly. [id number] Harlan Chan DO [facility]) [address] [place], [place] [phone] 11/13/2024 08:54:44 11/18/2024 12:58:53 Chronic obstructive pulmonary disease 08658830 J44.9 Z99.81 Z99.89 stable on inhalers. Using O2 intermitte ntly. Smoker 08478192 F17.200 I counseled patient on smoking risks, hazards, complicati ons, and associated illnesses. We discussed smoking cessation options. The patient will work on cutting back but is not ready to quit. We spent 4 minutes discussing this. All questions were addressed. Gastroesop hageal reflux disease without esophagitis 435702892 K21.9 stable on Omeprazole . Oropharyng eal dysphagia 57192652 R13.12 stable. Allergic rhinitis 928320 04 J30.9 Stable, continues Cetirizine Muscle weakness 67927999 M62.81 Z99.3 R26.2 Z74.09 R54 R53.83 Stable. [id number] Harlan Chan DO [facility] ([facility]) [address] [place] [address] 01/17/2025 09:45:41 01/18/2025 17:11:50 Chronic obstructive pulmonary disease 15068109 J44.9 Z99.81 Z99.89 stable on inhalers. Using O2 intermitte ntly. [id number] Harlan Chan DO [facility] ([facility]) [address] [place] [phone] 02/07/2025 09:53:28 02/09/2025 14:15:40 Pain of right knee joint 3009029125 45950 M25.561 [id number] 02/07/25: XR knee today. Pain of ri ght shoulder joint 6077243034 7907314 M25.511 [id number] 02/07/25: XR right shoulder, consider Cortisone injection, none prior. [id number] Harlan Chan [facility] ([facility]) [address] [place] [address] 02/19/2025 08:03:25 02/28/2025 21:41:36 Pain of right knee joint 6455377616 59968 M25.561 [id number] 02/19/25: pain and ROM improved, no effusion today. Will monitor.: XR knee today. Pain of ri ght shoulder joint 7071797858 3807096 M25.511 [id number] 02/19/25: After detailed discussion on diagnosis and treatment options, pt expressed verbal desire to proceed today with joint injection as per above.The patient expressed verbal understand ing of options, risks, procedure, and expectatio ns. Pt tolerated the procedure well. Aftercare instructio ns with expectatio ns and precaution s were discussed. 02/07/25: XR right shoulder, consider Cortisone injection, none prior. [id number] Harlanrosas FloresDO kamla [facility] ([facility]) [address] [place] [phone] 03/26/2025 08:14:04 03/31/2025 11:20:18 Pain of right shoulder joint 3028012146 6420575 M25.511 [id number] 03/26/25: Improved.: After detailed discussion on diagnosis and treatment options, pt expressed verbal desire to proceed today with joint injection as per above.The patient expressed verbal understand ing of options, risks, procedure, and expectatio ns. Pt tolerated the procedure well. Aftercare instructio ns with expectatio ns and precaution s were discussed. 02/07/25: XR right shoulder, consider Cortisone injection, none prior. Pain of ri ght knee joint 6725376666 99673 M25.561 [id number] 03/26/25: pain continues, offered injection previously and pt declined, he will consider.: pain and ROM improved, no effusion today. Will monitor.: XR knee today. Health Concerns Section Related Observation LastModified by Organization Detai ls LastModified Time None Recorded Concern Status LastModified by Organization Details LastModified Time None Recorded Advance Directives Directive None Recorded Payers Insurance Date Sequence Insurance Name Policy Number Policy Arcos Covered Member ID Arcos Member ID Guarantor Name 03/31/2025 [place] [facility] Yong Small [id number] Yong Small 03/31/2025 1 [employer] (MEDICARE REPLACEMENT/A DVANTAGE - PPO) Yong Small [id number] Yong Small 03/25/2025 2 [place] Yong Small [id number] Yong Small Notes Date Note Type Note Provider Name and Address Organization Details Recorded Time 11/13/2024 text/html ROS as noted in the HPI We are evaluating pt today in [facility] for routine f/u. Pt in their usual state and doing well. Using w/c. No recent falls.Able to perform personal care.Independently feeds, dresses, toilets himself, does need assistance with bathing. H/o COPD, uses home O2 and neb. Harlan Chan DO [address] [place] [address], [phone], [facility] 12/02/2024 00:22:05 01/17/2025 text/html ROS as noted in the HPI We are evaluating pt today in [facility] for routine f/u. Pt in their usual state and doing well. Harlan Chan DO [address] [place] [address], [phone], [facility] 01/17/2025 16:23:45 02/07/2025 text/html ROS as noted in the HPI We [place] pt [place] today for acute issue, right kneecap locking after he fell out of bed last night. He says he fell out of bed and hit his shoulder and his knee. He is using w/c today, as he usually does. He says he can walk, but it's hard, it makes me all jiggly .He also feels like his right shoulder is out of place, has limited ROM. Harlan Chan, DO [address] [place] [address], [phone], [facility], [place]. 02/07/2025 17:44:22 02/19/2025 text/html ROS as noted in the HPI We are [place] pt [place] today for reevaluation of his right knee and shoulder pain after we obtained XR's at last visit on 02/07/25. He reports knee pain is improved today, shoulder continues to bother him, worse with movement.No new fall or injury. Harlan Chan, DO [address] [place] [address], [phone], [facility], [place] 02/19/2025 15:35:28 03/26/2025 text/html ROS as noted in the HPI We [place] pt [place] today for f/u right shoulder pain. We did steroid injection of this shoulder on 02/19/25. Scheduled to dc home on 04/01/25, lack of payment. He c/o right knee pain, reports it almost gave out on him at [employer] today, did not fall. Harlan Chan, DO [address] [place] [address], [phone], [facility], [place] 03/26/2025 14:57:14
--- OUTSIDE RECORDS SUMMARY | 2025-06-14 02:40 | XMS_ITS ---
Author Organization [facility] Care Team Providers Care Agricultural Extension Specialist Name Role Phone Mary Lou Fulton Unavailable Unavailable Harlan Chan Unavailable Unavailable Allergies and adverse reactions No Known Allergies Care Team Name Role Address Phone Organization Dates Harlan Chan [facility] [address] [place], [address], [facility] (Office): [facility] 03/26/2023 - present Mary Lou Fulton [address], [address], [facility] (Office): : [facility] 03/26/2023 - present Encounters Encounter Type Code Code System Description Performer Discharge Disposition Service Delivery Location Date Ambulatory Encounter CPT Code = [id number] Chronic obstructive pulmonary disease [facility] Address: [address] [place] [address]. 03/26 Ambulatory Encounter CPT Code = [id number] Pneumonia [facility] Address: [address] [place] [address]. 03/26 Ambulatory Encounter CPT Code = [id number] Finding related to attentiveness [facility] Address: [address] [place] [address]. 03/26 Ambulatory Encounter CPT Code = [id number] Pain [facility] Address: [address] [place] [address]. 03/26 Ambulatory Encounter CPT Code = [id number] Moderate protein-calorie malnutrition (weight for age 60-74 percent of standard) [facility] Address: [address] [place] [address]. 03/26 Ambulatory Encounter CPT Code = [id number] Acute kidney injury [facility] Address: [address] [place] [address]. 03/26 Ambulatory Encounter CPT Code = [id number] Dehydration [facility] Address: [address] [place] [address]. 03/26 Ambulatory Encounter CPT Code = [id number] Dyspnea [facility] Address: [address] [place] [address]. 03/26 Ambulatory Encounter CPT Code = [id number] Diarrhea [facility] Address: [address] [place] [address]. 03/26 Ambulatory Encounter CPT Code = [id number] Allergic rhinitis [facility] Address: [address] [place] [address]. 03/26 Ambulatory Encounter CPT Code = [id number] Gastroesophageal reflux disease without esophagitis [facility] Address: [address] [place] [address]. 03/26 Ambulatory Encounter CPT Code = [id number] Pneumonia [facility] Address: [address] [place] [address]. 03/26 Ambulatory Encounter CPT Code = [id number] Urinary tract infectious disease [facility] Address: [address] [place] [address]. 03/26 Ambulatory Encounter CPT Code = [id number] Disorder of bone [facility] Address: [address] [place] [address]. 03/26 Ambulatory Encounter CPT Code = [id number] Shoulder joint pain [facility] Address: [address] [place] [address]. 03/26 Ambulatory Encounter CPT Code = [id number] Atopic dermatitis [facility] Address: [address] [place] [address]. 03/26 Ambulatory Encounter CPT Code = [id number] COVID-19 [facility] Address: [address] [place] [address]. 03/26 Ambulatory Encounter CPT Code = [id number] Unsteady when standing [facility] Address: [address] [place] [address]. 03/26 Ambulatory Encounter CPT Code = [id number] Muscle weakness [facility] Address: [address] [place] [address]. 03/26 Ambulatory Encounter CPT Code = [id number] Oropharyngeal dysphagia [facility] Address: [address] [place] [address]. 03/26 Ambulatory Encounter CPT Code = [id number] Acute exacerbation of chronic obstructive pulmonary disease [facility] Address: [address] [place] [address]. 03/26 Goals Section Goals Description Status Target Date All goals will be reviewed a nd updated as needed with completion of the assessment process of the NIEVES unless otherwise stated in the individualized goal Active 06/25/2025 Yong will be able to make ba sic needs known on a daily basis through the review date. Active 06/25/2025 Yong will be free of falls through the review da te. Active 06/25/2025 Yong will display optimal br eathing patterns daily through review date. Active 06/25/2025 Yong will have intact skin, free of redness, blisters or discoloration by/through review date. Active 06/25/2025 Yong will maintain adequate nutritional status as evidenced by maintaining weight, no s/sx of malnutrition through review date. Active 06/25/2025 [facility] 06/25/2025 Resident Will Participate in Social Situations A ctive 06/25/2025 Resident will Adhere to the Tobacco/Smoking Policies of the Facility Active 06/25/2025 The resident will comply wit h mouth care at least daily through review date. Active 06/25/2025 The resident will have no s/ sx of poor oxygen absorption through the review date. Active 06/25/2025 The resident's rash will heal by review date. Ac tive 06/25/2025 Functional Status Code Name Recorded Time Value Entered By Ambulation 06/13/2025 Supervision melissiamasters on Ambulation 06/13/2025 Supervision melissiamasters on Ambulation 06/13/2025 Not assessed melissiamasters on Ambulation 06/13/2025 Not assessed melissiamasters on Bathing 06/11/2025 Not assessed lulalatimer Dressing 06/13/2025 Limited Assistance ayaan robles Feeding or Eating 06/13/2025 Independent marla gonzalez Toileting 06/13/2025 Not assessed tharig Transferring 06/13/2025 Supervision adi on Immunizations Immunization Status Vaccine Details Vaccine Code CodeSystem Date Notes Influenza cancelled Influenza, high-dose, split virus, quadrivalent, injectable, preservative free 197 CVX created date: 05/12/2025 consent date: 05/12/2025 Educated by Iman Mason RN on 05/12/2025 Influenza cancelled Influenza, high-dose, split virus, quadrivalent, injectable, preservative free 197 CVX created date: 05/25/2024 consent date: 05/06/2024 Educated by on 05/25/2024 Influenza cancelled Influenza, high-dose, split virus, quadrivalent, injectable, preservative free 197 CVX created date: 05/20/2023 consent date: 05/20/2023 Educated by Mary Lou Mishra on 05/20/2023 TB 2 Step Mantoux Skin Test completed tuberculin skin test; unspecified formulation lotNumber: [id number] expiry: 03/29/2024 Mfg: Aplisol Given 0.1 ml Right Deltoid subcutaneously Step 2 of Multi-step with next step required 98 CVX created date: 04/08/2023 consent date: 04/08/2023 administer ed date: 04/08/2023 TB 2 Step Mantoux Skin Test completed tuberculin skin test; unspecified formulation lotNumber: [id number] expiry: 11/27/2023 Mfg: Aplisol Given 0.1 ml Left Forearm subcutaneously Step 1 of Multi-step with next step required 98 CVX created date: 03/28/2023 consent date: 03/28/2023 administer ed date: 03/26/2023 SARS-COV-2 (COVID-19) cancelled SARS-COV-2 (COVID-19) vaccine, mRNA, spike protein, LNP, preservative free, 100 mcg/0.5mL dose or 50 mcg/0.25mL dose 207 CVX created date: 04/05/2023 consent date: 04/05/2023 Educated by Mary Lou Mishra on 04/05/2023 Prevnar 23 cancelled pneumococcal polysaccharide vaccine, 23 valent 33 CVX created date: 04/05/2023 consent date: 04/05/2023 Educated by Mary Lou Mishra on 04/05/2023 Prevnar 20 cancelled Pneumococcal conjugate vaccine 20-valent (PCV20), polysaccharide [id number] conjugate, adjuvant, preservative free 216 CVX created date: 07/01/2024 consent date: 06/30/2024 Medications Section Medication Name Status Code CodeSystem Dose Route Frequency Admin Type Sig Text Start Date End Date Indication Omeprazole Oral Tablet Delayed Release 20 MG active 01227 4 RXNORM 1 table t Oral one time a day Routin e Give 1 table t by mouth one time a day for Proph ylaxi s 2022 - Prophylaxis Spiriva HandiHaler Inhalation Capsule 18 MCG active 32164 1 RXNORM 1 capsu le Inhala tion one time a day Routin e 1 capsu le inhal e orall y one time a day for Proph ylaxi s 2022 - Prophylaxis Potassium Chloride ER Oral Capsule Extended Release 8 MEQ active 96073 3 RXNORM 1 capsu le Oral one time a day Routin e Give 1 capsu le by mouth one time a day for Proph ylaxi s 2022 - Prophylaxis Acetaminoph en Tablet 325 MG active 60196 2 RXNORM 2 table t Oral as needed PRN Give 2 table t by mouth every 4 hours as neede d for pain 2022 - pain Imodium A-D Oral Tablet 2 MG active 55799 3 RXNORM 2 mg Oral as needed PRN Give 2 mg by mouth as neede d for Diarr hea 2022 - Diarrhea Voltaren External Gel 1 % active 26412 5 RXNORM n/a n/a Topica l three times a day Routin e Apply to left shoul yadi topic ally three times a day for pain in shoul yadi 2023 - pain in shoulder Albuterol Sulfate Inhalation Nebulizatio n Solution active 1 vial Inhala tion as needed PRN 1 vial inhal e orall y via nebul izer every 4 hours as neede d for wheez ing 2023 - wheezing Combivent Respimat Inhalation Aerosol Solution 20-100 MCG/ACT active 52084 25 RXNORM 1 puff Inhala tion as needed PRN 1 puff inhal e orall y every 6 hours as neede d for SHORT NESS OF BREAT H (R06. 02) 2023 - SHORTNESS OF BREATH (R06.02) Symbicort Inhalation Aerosol 160-4.5 MCG/ACT active 25342 06 RXNORM 2 puff Inhala tion two times a day Routin e 2 puff inhal e orall y two times a day for CHRON IC OBSTR UCTIV E PULMO NARY DISEA SE WITH (ACUT E) EXACE RBAT rinse mouth follo wing use 2023 - CHRONIC OBSTRUCTIVE PULMONARY DISEASE WITH (ACUTE) EXACERBAT Clobetasol Propionate External Ointment 0.05 % active 46371 8 RXNORM n/a n/a Topica l two times a day Routin e Apply to arms, legs, and trunk topic ally two times a day 7 days on and 7 days off for rash 2023 - rash Tacrolimus External Ointment 0.1 % active 01326 6 RXNORM n/a n/a Topica l two times a day Routin e Apply to arms, legs, and trunk topic ally two times a day 7 days on and 7 days off for rash 2023 - rash Cetirizine HCl Oral Tablet 5 MG active 43916 76 RXNORM 1 table t Oral one time a day Routin e Give 1 table t by mouth one time a day for aller gies 2023 - allergies Ventolin HFA Inhalation Aerosol Solution 108 (90 Base) MCG/ACT active 62499 8 RXNORM 2 puff Inhala tion as needed PRN 2 puff inhal e orall y every 4 hours as neede d for SHORT NESS OF BREAT H (R06. 02) May keep at [facility]. Staff is to check daily for usage . 2023 - SHORTNESS OF BREATH (R06.02) Bisacodyl EC Tablet Delayed Release 5 MG active 43495 3 RXNORM 2 table t Oral as needed PRN Give 2 table t by mouth as neede d for Const ipati on 2024 - Constipatio n Mental Status Section Date Assessment Total Score Description 03/29/2025 BIMS 15 cognitively int act CAM 0 No delirium ind icated PHQ-9 00 12/28/2024 CAM 0 No delirium ind icated Insurance Providers Plan of Treatment Section Interventions Intervention Code Code System Display Name Proposed D ate Problems Problem # Description Date of onset Resolved Date Code CodeSystem Concern Status 1 OTHER PNEUMONIA, UNSPECIFIED ORGANISM 09/11/2024 09/22/[address] completed 2 URINARY TRACT INFECTION, SITE NOT SPECIFIED 09/11/2024 09/22/[address] completed 3 OTHER SPECIFIED DISORDERS OF BONE DENSITY AND STRUCTURE, UNSPECIFIED SITE 06/13/[address] active 4 PAIN IN UNSPECIFIED SHOULDER 06/04/[address] active 5 PAIN, UNSPECIFIED 06/04/[address] active 6 ATOPIC DERMATITIS, UNSPECIFIED 11/16/[address] active 7 COVID-19 06/14/2023 01/04/[address] compl eted 8 MODERATE PROTEIN-CALORIE MALNUTRITION 03/29/[address] active 9 MUSCLE WEAKNESS (GENERALIZED) 03/27/[address] active 10 UNSTEADINESS ON FEET 03/27/[address] active 11 ACUTE KIDNEY FAILURE, UNSPECIFIED 03/26/2023 07/01/[address] completed 12 ALLERGIC RHINITIS, UNSPECIFIED 03/26/[address] active 13 CHRONIC OBSTRUCTIVE PULMONARY DISEASE WITH (ACUTE) EXACERBATION 03/26/2023 07/29/[address] completed 14 CHRONIC OBSTRUCTIVE PULMONARY DISEASE, UNSPECIFIED 03/26/[address] active 15 DEHYDRATION 03/26/2023 07/01/[address] com pleted 16 DIARRHEA, UNSPECIFIED 03/26/2023 04/03/[address] completed 17 DYSPHAGIA, OROPHARYNGEAL PHASE 03/26/[address] active 18 GASTRO-ESOPHAGEAL REFLUX DISEASE WITHOUT ESOPHAGITIS 03/26/[address] active 19 PNEUMONIA, UNSPECIFIED ORGANISM 03/26/2023 07/01/[address] completed 20 SHORTNESS OF BREATH 03/26/[address] active 21 UNSPECIFIED SYMPTOMS AND SIGNS INVOLVING COGNITIVE FUNCTIONS AND AWARENESS 03/26/[address] active Reason for Referral No Reasons for Referral Entered Diagnostic Results Laboratory Test Results Code Code System Date Test Observation Result Interpretation Reference Range Status Notes LP783 9-6 LOINC 06/12 Complet e Blood Count / CMP / Lipid Panel / TSH / Cogent- Complete d Result for: Yong Small ( [birth year] 55, F) 123-9 9999- 9 LOINC 11/14 /2025 Cogent- - Normal Final LP783 9-6 LOINC 06/12 Complet e Blood Count Complete d Result for: Yong Small ( [birth year] 55, F) 4544- 3 LOINC 06/11 HCT Value: 38.2 Units: % Normal 34.1-44.9 Final 706-2 LOINC 06/11 BASO% Value: 0.3 Units: % Normal 0.1-1.2 Final 713-8 LOINC 06/11 EOS% Value: 0.2 Units: % Low 0.7-5.8 Final 788-0 LOINC 06/11 RDW Value: 13.8 Units: % Normal 11.7-14.4 Final 5905- 5 [facility] 06/11 MONO% Value: 6.8 Units: % Normal 4.7-12.5 Final 03183 -0 [facility] 06/11 LYMPH% Value: 4.6 Units: % Low 19.3-51.7 Final 770-8 LOINC 06/11 NEUT% Value: 88.1 Units: % High 34.0-71.1 Final LP783 9-6 INC 06/12 CMP Complete d Result for: Yong Small ( [birth year] 55, F) 3097- 3 INC 06/11 BUN/CREAT RATIO Value: 23.2 Units: {calc} High 10-20 Final LP783 9-6 INC 06/12 Complet e Blood Count Complete d Result for: Yong Small ( [birth year] 55, F) 777-3 INC 06/11 MPV Value: 7.1 Units: fL Low 9.4-12.3 Final 787-2 LOINC 06/11 MCV Value: 98.9 Units: fL High 79.4-94.8 Final 785-6 LOINC 06/11 MCHC Value: 33.4 Units: g/dL Normal 32.2-35.5 Final 718-7 LOINC 06/11 HGB Value: 12.8 Units: g/dL Normal 11.2-15.7 Final LP783 9-6 [facility] 06/12 CMP Complete d Result for: Yong Small ( [birth year] 55, F) 15984 -0 [facility] 06/11 GLOBULIN, Calculated Value: 3.3 Units: g/dL Normal 1.9-3.7 Final 2885- 2 [facility] 06/11 TOTAL PROTEIN Value: 7.3 Units: g/dL Normal 6.4-8.9 Final 1751- 7 [facility] 06/11 ALBUMIN Value: 4.0 Units: g/dL Normal 3.5-5.7 Final 1920- 8 [facility] 06/11 ASPARTATE AMINOTRANSFERA SE (AST) Value: 17 Units: [IU]/L Normal 13-39 Final 1742- 6 [facility] 06/11 ALANINE AMINOTRANSFERA SE (ALT) Value: 8 Units: [IU]/L Normal 7-52 Final 6768- 6 [facility] 06/11 ALKALINE PHOSPHATASE (ALP) Value: 84 Units: [IU]/L Normal 34-104 Final 66173 -3 [facility] 06/11 ANION GAP Value: 11.5 Units: mEq/L Normal 8-16 Final 2027- 9 [facility] 06/11 CARBON DIOXIDE (BICARB) Value: 31 Units: mEq/L Normal 21-31 Final 2074- 0 [facility] 06/11 CHLORIDE Value: 99 Units: mEq/L Normal 98-107 Final 2823- 3 [facility] 06/11 POTASSIUM Value: 4.5 Units: mEq/L Normal 3.5-5.1 Final 2951- 2 [facility] 06/11 SODIUM Value: 137 Units: mEq/L Normal 136-145 Final LP783 9-6 [facility] 06/12 Lipid Panel Complete d Result for: Yong Small ( [birth year] 55, F) 84876 -7 [facility] 06/11 LDL (CALCULATED) Value: 58 Units: mg/dL Normal <100 mg/dL Final *LDL Calcula tion is invalid if Triglyc eride level is >400 mg/dL.* The NCEP guideli jaswant classif y LDL - Cholest konrad levels as follows :1. < 100 mg/dL Optimal 2. 100 129 mg/dL Near optimal /above optimal 3. 131 159 mg/dL Borderl ine high4. 160 189 mg/dL High5. => 190 mg/dL Very High 2571- 8 [facility] 06/11 TRIGLYCERIDES Value: 57 Units: mg/dL Normal <150 mg/dL Final Triglyc eride Risk Classif ication <150 mg/dL Normal 150-199 mg/dL Borderl ine High 200-499 mg/dL High =>500 mg/dL Very High 2085- 9 [facility] 06/11 HDL Value: 58 Units: mg/dL Normal >40 mg/dL Final In 2000, The Nationa l Cholest konrad Educati on Program (NCEP) increas ed the high-ri medical decisio n point to <40 mg/dL.T he guideli jaswant classif y HDL- C levels as follows :1. < 40 mg/dL as indicat brynn of a major risk factor for CHD.2. > 60 mg/dL as a negativ e risk factor for CHD. [facility] 06/11 CHOLESTEROL, TOTAL Value: 127.4 Units: mg/dL Normal <200 mg/dL Final Total Cholest konrad Risk Classif ication < 200 mg/dL Desirab le 200 - 239 mg/dL Borderl ine High > 240 mg/dL High LP783 9-6 [facility] 06/12 CMP Complete d Result for: Yong Small ( [birth year] 55, F) 2160- 0 [facility] 06/11 CREATININE Value: 0.92 Units: mg/dL Normal 0.6-1.3 Final 3094- 0 [facility] 06/11 BLOOD UREA NITROGEN (BUN) Value: 21.3 Units: mg/dL Normal 7.0-25.0 Final 1975- 2 [facility] 06/11 TOTAL BILIRUBIN Value: 0.5 Units: mg/dL Normal 0.3-1.0 Final 64845 -1 [facility] 06/11 CALCIUM Value: 8.7 Units: mg/dL Normal 8.6-10.2 Final 2345- 7 [facility] 06/11 GLUCOSE Value: 112 Units: mg/dL High 74-109 Final 58537 -1 [facility] 06/11 Estimated GFR AA Value: >60.0 Units: mL/min/ {1.73_m 2} Normal >60.0 Final 54262 -3 [facility] 06/11 Estimated GFR Value: >60.0 Units: mL/min/ {1.73_m 2} Normal >60.0 Final LP783 9-6 [facility] 06/12 Complet e Blood Count Complete d Result for: Yong Small ( [birth year] 55, F) 785-6 [facility] 06/11 MCH Value: 33.0 Units: pg High 25.6-32.2 Final 783 9-6 [facility] 06/12 CMP Complete d Result for: Yong Small ( [birth year] 55, F) 1759- 0 [facility] 06/11 A/G RATIO Value: 1.2 Units: {ratio} Normal 0.8-2.0 Final [facility] 9-6 [facility] 06/12 Complet e Blood Count / CMP / Lipid Panel / TSH / Cogent- Complete d Result for: Yong Small ( [birth year] 55, F) 00213 -8 [facility] 06/11 THYROID-STIMUL ATING HORMONE (TSH) Value: 0.15 Units: u[IU]/m L Low 0.45-5.33 Final [facility] 9-6 [facility] 06/12 Complet e Blood Count Complete d Result for: Yong Small ( [birth year] 55, F) 6690- 2 [facility] 06/11 WBC Value: 14.2 Units: x10^3/u L High 3.98-10.04 Final 736-9 [facility] 06/11 LYMPH# Value: 0.6 Units: x10^3/u L Low 1.18-3.74 Final 751-8 LOINC 06/11 NEUT# Value: 12.5 Units: x10^3/u L High 1.56-6.13 Final 777-3 [facility] 06/11 PLT Value: 270 Units: x10^3/u L Normal 182-369 Final 704-7 LOINC 06/11 BASO# Value: 0.0 Units: x10^3/u L Low 0.01-0.08 Final 711-2 LOINC 06/11 EOS# Value: 0.0 Units: x10^3/u L Low 0.04-0.36 Final 742-7 LOINC 06/11 MONO# Value: 1.0 Units: x10^3/u L High 0.24-0.36 Final 789-8 LOINC 06/11 RBC Value: 3.86 Units: 10*6/uL Low 3.93-5.22 Final Social History Social History Observation Description Start Date End Date Code Code System Current Smoking Status Tobacco smoking consumption unknown 306503671 SNOMED CT Sex Assigned At Male 1950 66954-9 [facility] Gender Identity Sexual Orientation Vital Signs Code Code System Vitals Name Values and Units Timing Information 57330-6 [facility] Pain Level Value=4.0 06/14/2025 9279-1 [facility] Respiratory Rate Value=21.0 Units=/m in 06/14/2025 8310-5 [facility] Body Temperature Value=98.7 Units= F 06/14/2025 51356-6 [facility] O2 % dC Oximetry Value=87.0 Units= % 06/14/2025 8462-4 [facility] Blood Pressure-Diastolic Value=71 Un its=mmHg 06/14/2025 8480-6 [facility] Blood Pressure-Systolic Exkwy=274 Un its=mmHg 06/14/2025 8867-4 [facility] Heart rate Value=66.0 Units=/min 35843-9 INC Weight Zupyp=158.0 Units=Lbs 10/2024 8302-2 [facility] Height Value=64.0 Units=Inches 03/29/2025
--- NOTE | 2025-06-14 02:45 | XRR_ITS ---
PROCEDURE INFORMATION: Exam: XR Chest Exam date and time: 06/14/2025 2:50 AM Age: 74 years old Clinical indication: Cough and shortness of breath; Cough with SOB. History of copd. TECHNIQUE: Imaging protocol: Radiologic exam of the chest. Views: 1 view. COMPARISON: CR XR chest 1V portable [id number] 09/10/2024 12:15 PM FINDINGS: Lungs: Unremarkable. No consolidation. Pleural spaces: Small left pleural effusion. Heart/Mediastinum: Unremarkable. No cardiomegaly. Bones/joints: Unremarkable. XR/XR chest 1V portable [id number] IMPRESSION: Small left pleural effusion.
--- NOTE | 2025-06-14 02:46 | ECG_ITS ---
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 Measurements Intervals Rebuck Rate: 112 P: 88 [place]: 137 QRS: 59 QRSD: 78 T: 74 QT: 316 QTc: 432 Interpretive Statements SINUS TACHYCARDIA WITH OCCASIONAL SUPRAVENTRICULAR PREMATURE COMPLEXES NONSPECIFIC ST & T-WAVE ABNORMALITY ABNORMAL RHYTHM ECG Compared to ECG 09/10/2024 15:14:28 T-wave abnormality now present Sinus rhythm no longer present Sinus arrhythmia no longer present Left ventricular hypertrophy no longer present Electronically Signed On 06-16-2025 09:51:52 [employer] by Shan Schmitt M.D. [email or web address]
[2025-06-14 03:04] LABS: Hematocrit 34.7 % (37-53); Hemoglobin 10.90 g/dL (11.27-16.99); Mean Corpuscular HGB Conc 31.4 g/dL (30-55); Mean Corpuscular Hemoglobin 31.5 pg (27-33); Mean Corpuscular Volume 100.3 fl (82-101); Nucleated Red Blood Cells % 0 %; Platelet Count 274 10^3/cmm (157-399); Red Blood Count 3.46 10^6/uL (3.85-5.65); White Blood Count 11.67 10^3/uL (3.29-11.43)
[2025-06-14] MEDS: methylPREDNISolone sod succ 125 mg/2 mL INJ IV (03:04)
[2025-06-14 03:15] LABS: ABG PCO2 55.8 mmHg (35-45); ABG PH Result 7.29 (7.35-7.45); Arterial Blood Gas Hematocrit 35.2 % (42-52); Blood Gas LPM 3.0 %; Blood Gas Sample Site Brachial, right; Blood Gas Sample Type Arterial; Carboxyhemoglobin 1.6 %THgb (0.4-20.1); HCO3 ABG 26.7 mmol/L (22-26); Methemoglobin 1.1 % (0.4-1.5); PO2 ABG 91.8 mmHg (80.0-100.0)
[2025-06-14 03:17] LABS: Lactic Sepsis W/Reflex 1.6 mmol/L (0.5-2.2)
[2025-06-14 03:26] LABS: Alanine Aminotransferase 20 U/L (0-41); Albumin Level 3.7 g/dL (3.5-5.2); Alkaline Phosphatase 115 U/L (40-130); Anion Gap 19.3 (5-19); Aspartate Amino Transferase 40 U/L (0-40); Blood Urea Nitrogen 44 mg/dL (8-23); Calcium 8.9 mg/dL (8.5-10.5); Carbon Dioxide 28 mmol/L (22-29); Chloride 96 mmol/L (98-107); Globulin 3.2 g/dL (1.3-4.6); Glucose 107 mg/dL (65-115); Osmolality Calculated 298 mOsm/kg (285-295); Potassium 5.3 mmol/L (3.5-5.1); Sodium 138 mmol/L (136-145); Total Protein 6.9 g/dL (6.6-8.7); Troponin(5th) Baseline 235 ng/L (0-15)
[2025-06-14 03:29] LABS: NT Pro B Type Natriuretic Pept 5449 pg/mL (0-125)
[2025-06-14 03:45] LABS: Respiratory Syncytial Virus Ce NEGATIVE (Negative); SARS-CoV-2 PCR NEGATIVE (Negative)
--- NOTE | 2025-06-14 04:19 | W.ED.SOB ---
HPI - SOB/Dyspnea General: Chief Complaint: Shortness of Breath/Dyspnea Stated Complaint: sob Time Seen by Provider: 06/14/25 02:38 History of Present Illness: HPI Narrative: 74-year-old male with a history of COPD. Patient presents with acute respiratory distress requiring supplemental oxygen. The patient reports having difficulty breathing and pain, though the pain has subsided at the time of examination. Patient reports a fever and has been coughing up yellowish sputum. The patient normally requires home oxygen at 3 liters. Emergency services provided a breathing treatment en route, which the patient reports was helpful in alleviating symptoms. The patient denies current chest pain and lower extremity edema. Related Data Home Medications ?Medication ?Instructions ?Recorded ?Confirmed albuterol sulfate 90 mcg/actuation 2 puff inhalation Q4H PRN 03/18/23 09/10/24 aerosol inhaler (Ventolin HFA) Shortness Of Breath budesonide-formoterol HFA 160 2 puff inhalation BID 03/18/23 09/10/24 mcg-4.5 mcg/actuation aerosol inhaler (Symbicort) ipratropium 20 mcg-albuterol 100 1 puff inhalation QID PRN 03/18/23 09/10/24 mcg/actuation mist for inhalation Shortness Of Breath (Combivent Respimat) omeprazole 20 mg capsule,delayed 20 mg PO DAILY 03/18/23 09/10/24 release potassium chloride 8 mEq 8 meq PO DAILY 03/18/23 09/10/24 capsule,extended release tiotropium bromide 18 mcg capsule 1 cap inhalation DAILY 03/18/23 09/10/24 with inhalation device (Spiriva with HandiHaler) acetaminophen 325 mg tablet 650 mg PO Q4H PRN Pain 09/10/24 09/10/24 albuterol sulfate 2.5 mg/3 mL 2.5 mg inhalation Q4H 09/10/24 09/10/24 (0.083 %) solution for nebulization calcium carbonate 1,000 mg tablet 1,000 mg PO DAILY 09/10/24 09/10/24 cetirizine 5 mg tablet 5 mg PO DAILY 09/10/24 09/10/24 clobetasol 0.05 % topical ointment 1 applic topical BID 09/10/24 09/10/24 diclofenac sodium 1 % topical gel 2 g topical TID 09/10/24 09/10/24 ergocalciferol (vitamin D2) 10 mcg 20 mcg PO DAILY 09/10/24 09/10/24 (400 unit) tablet loperamide 2 mg capsule (Imodium 2 mg PO Q4H PRN Constipation 09/10/24 09/10/24 A-D) tacrolimus 0.1 % topical ointment 1 applic topical BID 09/10/24 09/10/24 Allergies Allergy/AdvReac Type Severity Reaction Status Date / Time No Known Allergies Allergy Verified 03/17/23 20:48 PFS ED PFSH: Medical History History of smoking History of echocardiogram 2017 EF 65%, grade I/IV diastolic dysfunction COPD (chronic obstructive pulmonary disease) Surgical History No history of previous surgery Family History Mother CAD (coronary artery disease) Social History Smoking and tobacco/nicotine status: former use of tobacco/nicotine Alcohol intake: unknown Substance/Drug Use: unknown Additional social history: Lives in a house without running water, a neighbor brings him water. He has electricity. Household members: none Physical Exam Const: GENERAL APPEARANCE: cooperative, in distress (Mild), ill appearing and frail appearing HENMT: COMMON NORMALS: normocephalic and Normal external nose present HEAD & SCALP: normocephalic FACE & SINUS: normal facial exam and face symmetric NOSE: Normal external nose present Eye: COMMON NORMALS: Equal, round and reactive pupils present and EOMs intact bilaterally PUPIL: Yes Equal, round and reactive pupils present Chest: CHEST: Yes Symmetrical chest wall rise Resp: EFFORT & INSPECTION: Yes tachypneic and Yes labored AUSCULTATION: rhonchi Cardio: COMMON NORMALS: regular rhythm RATE: tachycardic RHYTHM: regular rhythm GI: INSPECTION: Yes abdominal distension (Mild) Extremity: COMMON NORMALS: no pedal edema Course Vital Signs: Vital signs: Vital Signs Temperature 97.4 F L 06/14/25 02:30 Pulse Rate 97 06/14/25 04:25 Respiratory Rate 24 H 06/14/25 03:02 Blood Pressure 118/66 06/14/25 04:25 Pulse Oximetry 96 06/14/25 04:25 Oxygen Delivery Me thod Nasal Cannula 06/14/25 03:07 Oxygen Flow Rate 3 06/14/25 03:07 Fraction of Inspir ed Oxygen 40 06/14/25 03:30 MDM - SOB/Dyspnea Medical Decision Making Patient is tachycardic on arrival, hypoxic on room air. He is placed on his 3 L he normally wears. Blood gas done on arrival shows respiratory acidosis with a pH of 729 and pCO2 of 56. He is placed on BiPAP. He will need his blood gas rechecked at some point. He is mentating pretty well for this level of respiratory acidosis. White blood cell count is 12. Hemoglobin 11. Potassium is 5.3. Sepsis bolus not given, as BNP is already 5500. Swabs are negative for COVID flu RSV. Baseline troponin is 235. He has not had a baseline troponin is high in the past. Because of this, aspirin, Plavix, Lovenox have been given. Patient has had blood cultures. Zosyn is ordered. Chest x-ray only shows a small left pleural effusion. No definite pneumonia. Spoke with the hospitalist regarding admission. He will go to the [facility]. Lab Data 06/14/25 02:39 06/14/25 02:39 Labs/Radiology: Radiology Impressions Chest X-Ray 06/14/25 02:45 IMPRESSION: Small left pleural effusion. Laboratory Results WBC 11.67 10^3/uL (3.29-11.43) H 06/14/25 02:39 RBC 3.46 10^6/uL (3.85-5.65) L 06/14/25 02:39 Hgb 10.90 g/dL (11.27-16.99) L 06/14/25 02:39 Hct 34.7 % (37-53) L 06/14/25 02:39 MCV 100.3 fl (82-101) 06/14/25 02:39 MCH 31.5 pg (27-33) 06/14/25 02:39 MCHC 31.4 g/dL (30-55) 06/14/25 02:39 RDW 12.5 % (12.1-15.1) 06/14/25 02:39 Plt Count 274 10^3/cmm (157-399) 06/14/25 02:39 MPV 9.2 fL (7.4-10.4) 06/14/25 02:39 Neut % (Auto) 81.3 % 06/14/25 02:39 Lymph % (Auto) 7.0 % 06/14/25 02:39 Finney % (Auto) 11.2 % 06/14/25 02:39 Eos % (Auto) 0.0 % 06/14/25 02:39 Baso % (Auto) 0.3 % 06/14/25 02:39 Neut # (Auto) 9.48 10^3/uL (1.8-7.7) H 06/14/25 02:39 Lymph # (Auto) 0.8 10^3/uL (0.8-4.8) 06/14/25 02:39 Finney # (Auto) 1.3 10^3/uL (0.2-0.9) H 06/14/25 02:39 Eos # (Auto) 0.0 10^3/uL (0.0-0.8) 06/14/25 02:39 Baso # (Auto) 0.0 10^3/uL (0.0-0.1) 06/14/25 02:39 Nucleated RBC % (auto) 0 % 06/14/25 02:39 Nucleated RBCs # 0.0 /100WBC 06/14/25 02:39 Specimen Type Arterial 06/14/25 03:05 Sample Site Brachial, right 06/14/25 03:05 ABG pH 7.29 (7.35-7.45) L 06/14/25 03:05 ABG pCO2 55.8 mmHg (35-45) H 06/14/25 03:05 ABG pO2 91.8 mmHg (80.0-100.0) 06/14/25 03:05 ABG HCO3 26.7 mmol/L (22-26) H 06/14/25 03:05 ABG Base Excess -0.7 mmol/L (-2.0-2.0) 06/14/25 03:05 Shalom Test N/a 06/14/25 03:05 Hematocrit 35.2 % (42-52) L 06/14/25 03:05 Hgb O2 Saturation 94.1 % (95-100) L 06/14/25 03:05 Carboxyhemoglobin 1.6 %THgb (0.4-20.1) 06/14/25 03:05 Methemoglobin 1.1 % (0.4-1.5) 06/14/25 03:05 Total Hemoglobin 11.5 g/dL (14-18) L 06/14/25 03:05 O2 Delivery Device Nc 06/14/25 03:05 O2 Liters/Min 3.0 % 06/14/25 03:05 Necktie Maker ID [email or web address] 06/14/25 03:05 Sodium 138 mmol/L (136-145) 06/14/25 02:39 Potassium 5.3 mmol/L (3.5-5.1) H 06/14/25 02:39 Chloride 96 mmol/L (98-107) L 06/14/25 02:39 Carbon Dioxide 28 mmol/L (22-29) 06/14/25 02:39 Anion Gap 19.3 (5-19) H 06/14/25 02:39 BUN 44 mg/dL (8-23) H 06/14/25 02:39 Creatinine 1.2 mg/dL (0.7-1.2) 06/14/25 02:39 GFR Calculation Not Reportable 06/14/25 02:39 Glucose 107 mg/dL (65-115) 06/14/25 02:39 Calculated Osmolality 298 mOsm/kg (285-295) H 06/14/25 02:39 Lactic Acid 1.6 mmol/L (0.5-2.2) 06/14/25 02:39 Calcium 8.9 mg/dL (8.5-10.5) 06/14/25 02:39 Total Bilirubin 0.3 mg/dL (0.15-1.2) 06/14/25 02:39 AST 40 U/L (0-40) 06/14/25 02:39 ALT 20 U/L (0-41) 06/14/25 02:39 Alkaline Phosphatase 115 U/L (40-130) 06/14/25 02:39 Troponin T Baseline 235 ng/L (0-15) H* 06/14/25 02:39 NT-Pro-B Natriuret Pep 5449 pg/mL (0-125) H 06/14/25 02:39 Total Protein 6.9 g/dL (6.6-8.7) 06/14/25 02:39 Albumin 3.7 g/dL (3.5-5.2) 06/14/25 02:39 Globulin 3.2 g/dL (1.3-4.6) 06/14/25 02:39 Influenza A (PCR) Negative (Negative) 06/14/25 03:02 Influenza Type B (PCR) Negative (Negative) 06/14/25 03:02 RSV (PCR) Negative (Negative) 06/14/25 03:02 SARS-CoV-2 (PCR) Negative (Negative) 06/14/25 03:02 All radiology interpretation(s) finalized by discharge Critical Care Time Critical Care Time: Critical Care Time: Yes Total Critical Care Time: 35 Attestation: This case had a high probability of a clinically significant, sudden, or life threatening deterioration of this patient's condition which required my full and direct attention, intervention and personal management. Time is independent of any procedures performed. Discharge Plan Discharge Patient Disposition: Admitted As Inpatient Admit Provider: Bucky Castano Clinical Impression: Respiratory failure with hypoxia and hypercapnia, Non-ST elevated myocardial infarction (non-STEMI), Pleural effusion Condition: Serious Coding Level of Care Code ED Electrical Prospecting Observer for Niki Urrutia
[2025-06-14] MEDS: piperacillin-tazobactam 4.5 GM in sodium chloride 0.9% (plus) 50 ML IV (04:35)
--- NOTE | 2025-06-14 04:52 | PM.HP ---
Providers/Chief Complaint Admitting Physician: Bucky Castano DO Chief Complaint: sob History of Present Illness Yong Small is a 74 year old male Medications/Allergies Home Medications ?Medication ?Instructions ?Recorded ?Confirmed ?Last Taken ?Type albuterol sulfate 90 mcg/actuation 2 puff inhalation Q4H PRN 03/18/23 09/10/24 Unknown History aerosol inhaler (Ventolin HFA) Shortness Of Breath budesonide-formoterol HFA 160 2 puff inhalation BID 03/18/23 09/10/24 Unknown History mcg-4.5 mcg/actuation aerosol inhaler (Symbicort) ipratropium 20 mcg-albuterol 100 1 puff inhalation QID PRN 03/18/23 09/10/24 Unknown History mcg/actuation mist for inhalation Shortness Of Breath (Combivent Respimat) omeprazole 20 mg capsule,delayed 20 mg PO DAILY 03/18/23 09/10/24 Unknown History release potassium chloride 8 mEq 8 meq PO DAILY 03/18/23 09/10/24 Unknown History capsule,extended release tiotropium bromide 18 mcg capsule 1 cap inhalation DAILY 03/18/23 09/10/24 Unknown History with inhalation device (Spiriva with HandiHaler) acetaminophen 325 mg tablet 650 mg PO Q4H PRN Pain 09/10/24 09/10/24 Unknown History albuterol sulfate 2.5 mg/3 mL 2.5 mg inhalation Q4H 09/10/24 09/10/24 Unknown History (0.083 %) solution for nebulization calcium carbonate 1,000 mg tablet 1,000 mg PO DAILY 09/10/24 09/10/24 Unknown History cetirizine 5 mg tablet 5 mg PO DAILY 09/10/24 09/10/24 Unknown History clobetasol 0.05 % topical ointment 1 applic topical BID 09/10/24 09/10/24 Unknown History diclofenac sodium 1 % topical gel 2 g topical TID 09/10/24 09/10/24 Unknown History ergocalciferol (vitamin D2) 10 mcg 20 mcg PO DAILY 09/10/24 09/10/24 Unknown History (400 unit) tablet loperamide 2 mg capsule (Imodium 2 mg PO Q4H PRN Constipation 09/10/24 09/10/24 Unknown History A-D) tacrolimus 0.1 % topical ointment 1 applic topical BID 09/10/24 09/10/24 Unknown History Allergies Allergy/AdvReac Type Severity Reaction Status Date / Time No Known Allergies Allergy Verified 03/17/23 20:48 PFSH Acute PFSH: Medical History (Updated 06/14/25 @ 04:42 by Josiah Gimenez DO) History of smoking History of echocardiogram 2017 EF 65%, grade I/IV diastolic dysfunction COPD (chronic obstructive pulmonary disease) Surgical History No history of previous surgery Family History Mother CAD (coronary artery disease) Social History Smoking and tobacco/nicotine status: former use of tobacco/nicotine Alcohol intake: unknown Substance/Drug Use: unknown Additional social history: Lives in a house without running water, a neighbor brings him water. He has electricity. Household members: none Vitals/I&O/Wt Last Vital Signs Temp 97.4 F L 06/14/25 02:30 Pulse 97 06/14/25 04:25 Resp 24 H 06/14/25 03:02 BP 118/66 06/14/25 04:25 Pulse Ox 96 06/14/25 04:25 O2 Del Method Nasal Cannula 06/14/25 03:07 O2 Flow Rate 3 06/14/25 03:07 FiO2 40 06/14/25 03:30 Weight last 48 hrs Weight 68.039 kg Data 06/14/25 02:39 06/14/25 02:39 A&P Assessment and plan 1. Acute exacerbation of chronic obstructive airways disease: START OF MEDICAL REPORT Bucky Castano D.O. Board Certified Internal Medicine Chief Complaint: Shortness of breath History of Present Illness: The patient is a 74-year-old male with known history of COPD for which she is O2 dependent 3 L via nasal cannula and ongoing tobacco abuse who presents with chief complaint of three-week history of progressive dyspnea. The 48 hours leading up to his hospitalization he admits to fever, rigors, cough which is nonproductive. He denies nausea, emesis, wheeze, abdominal pain, diarrhea, myalgia, chest pain, lightheadedness, dizziness, diaphoresis, palpitations, sensation of a rapid heartbeat, sensation irregular heartbeat, new/worsening peripheral edema, any nose Marcel, dysgeusia. He presents for further evaluation I have explained to the patient (if they are coherent, able to comprehend, and/or are communicative) and/or their family member(s), friend(s), guardian(s), and/or other individual(s) present on the patient?s behalf (if present) the patient?s current medical condition, the patient?s current plan of care, and I have answered all questions posed to me. Family History: Coronary artery disease Physical Examination: General: -Alert. -No acute distress. -Mild to moderate dyspnea. -Mild to moderate tachypnea. Head: -Atraumatic. -Normocephalic. Eyes: -Pupils equally round and reactive to light and accommodation. -Extraocular muscles intact. Neurological: -Cranial nerves II-XII intact. Neck: -No jugular venous distention. -No thyromegaly. -No cervical lymphadenopathy. Heart: -iRegular rate. -Regular rhythm. -No murmurs. -No gallops. -No rubs. Lungs: -No wheeze. -No rhonchi. -No rales. ? Very distant breath sounds bilaterally Abdomen: -Normal bowel sounds in all four quadrants. -No rebound. -No guarding. -No tenderness. Extremities: -2/4 pulse in all four extremities. -No clubbing. -No cyanosis. -No edema. -No calf tenderness present bilaterally. -Negative Douglas?s sign bilaterally. Musculoskeletal: -5/5 bilateral upper extremity strength. -5/5 bilateral lower extremity strength. -Sensorium of bilateral upper extremities are equal and intact. -Sensorium of bilateral lower extremities are equal and intact. Additional Details / Additional Findings / Exceptions / Miscellaneous: Pertinent Laboratory Results / Pertinent Radiology Results / Pertinent Diagnostic Results / Pertinent Vital Signs: Blood pressure 113/75, heart rate 105, respiration 24, temperature 97.4?, 97% on BiPAP, BNP 5449, potassium 5.3, white blood count 11.7, hemoglobin 10.9 Social History: Caffeine: Coffee Tobacco: Active smoker Alcohol: Denies Pets: Denies + Allergies: No known drug allergies Code Status: Full Admission Date: 4:50 AM on June 14, 2025 Discharge Date: History of Present Illness / Hospital Course Summary: The patient is a 74-year-old male with known history of COPD for which she is O2 dependent 3 L via nasal cannula and ongoing tobacco abuse who presents with chief complaint of three-week history of progressive dyspnea. The 48 hours leading up to his hospitalization he admits to fever, rigors, cough which is nonproductive. He denies nausea, emesis, wheeze, abdominal pain, diarrhea, myalgia, chest pain, lightheadedness, dizziness, diaphoresis, palpitations, sensation of a rapid heartbeat, sensation irregular heartbeat, new/worsening peripheral edema, any nose Marcel, dysgeusia. He presents for further evaluation Surgical History: Right second digit surgery Assessment / Plan + Medical History: COPD exacerbation. Patient typically O2 dependent at 3 L/min via nasal cannula. Solu-Medrol 60 mg IV every 8 hours plus DuoNeb every 4 hours Chronic leukocytosis. We will monitor white blood cell count intermittently Seasonal allergies Chronically elevated troponin. Patient divides no symptoms of ACS. Will monitor patient on telemetry and checks her cardiac enzymes. Check TSH, free T4, magnesium level, fasting lipid panel, echocardiogram. Aspirin 81 mg by mouth daily plus Imdur 30 mg by mouth daily plus Lipitor 40 mg by mouth daily at bedtime plus metoprolol 12.5 mg by mouth twice a day Hyperkalemia. We will monitor potassium level intermittently and correct as necessary Anemia, chronic. We will monitor hemoglobin level intermittently GERD. Protonix 40 mg by mouth daily Tobacco abuse. The patient will be counseled regarding smoking cessation DVT prophylaxis. Lovenox 40 mg SC daily Consultations: None Disposition: Anticipate discharge in 48-96 hours + Discharge Diet: Cardiac Discharge Activity: Discharge Condition: Discharge Medications: Time Spent with Patient: Greater than 30 minutes. Bucky Castano D.O. Board Certified Internal Medicine END OF MEDICAL REPORT PDMP PDMP Reviewed: Not Reviewed Attestations Medical Necessity Statement*: Anticipate discharge in 48-96 hours Coding Level of Care Code Acute Code for Chg Fwd Diagnoses Acute exacerbation of chronic obstructive airways disease J44.1
[2025-06-14 04:59] LABS: Troponin 5 2HR 269.0 ng/L (0-15); Troponin 5 2HR Delta 34.0 ABS# (0-10)
--- NOTE | 2025-06-14 05:19 | USCV_ITS ---
Yong Small Age: 74 Gender: M : 1950 Exam Date: 06/14/2025 11:25 Ordering Phys: Bucky Castano DO Technologist: SANTY Exam Location: [facility] – [place] Indication: Elev Trop BP: 135 / 80 HR: 67 Rhythm: Sinus Technical Quality: Adequate MEASUREMENTS (Male / Female) Normal Values 2D ECHO LV Diastolic Diameter PLAX 4.1 cm 4.2 - 5.9 / 3.9 - 5.3 cm IVS Diastolic Thickness 0.9 cm 0.6 - 1.0 / 0.6 - 0.9 cm IVS Systolic Thickness 1.1 cm LVPW Diastolic Thickness 0.9 cm 0.6 - 1.0 / 0.6 - 0.9 cm LVPW Systolic Thickness 0.9 cm LVOT Diameter 2.0 cm LV Ejection Fraction 2D Teich 43.0 % LV Ejection Fraction MOD 4C 54.7 % LV Ejection Fraction MOD 2C 51.9 % LV Ejection Fraction 2C AL 50.3 % LA Diameter 3.6 cm RA Systolic Volume 4C AL 18.2 ml RA Systolic Volume 4C MOD 18.9 ml LA Sys Volume AL 33.6 cm cubed LA Sys Volume Index AL 19.8 cm cubed/m squared Aorta at Sinotubular Diameter 2.4 cm M-MODE LA Ao Ratio MM 1.2 AV Cusp Separation MM 1.8 cm DOPPLER AV Peak Velocity 85.0 cm/s LVOT Peak Velocity 67.0 cm/s AV Area Cont Eq vti 2.3 cm squared AV Area Cont Eq pk 2.6 cm squared MV Peak Velocity 75.0 cm/s MV Area PHT 5.3 cm squared Mitral E to A Ratio 0.7 TR Peak Velocity 133.0 cm/s TR Peak Gradient 7.1 mmHg TV Peak E Velocity 53.0 cm/s PV Peak Velocity 82.0 cm/s FINDINGS Left Ventricle Normal LV size and ejection fraction of around 55%.abnormal septal motion consistent with conduction abnormality. Right Ventricle Mildly increased right ventricular size. There is thickening of the free wall. mildly decreased right ventricular systolic function. Right Atrium Mildly increased right atrial size. Left Atrium Normal left atrial size. IA Septum Some thickening of the interatrial septum Mitral Valve No gross abnormalities noted Aortic Valve No gross abnormalities noted Tricuspid Valve No gross abnormalities noted Pulmonic Valve Pulmonic valve not well visualized. Pericardium No pericardial effusion. Aorta Normal aortic annulus size. IVC Inferior vena cava not visualized. CONCLUSIONS Normal LV size and ejection fraction of around 55%. Abnormal septal motion consistent with conduction abnormality. Mildly increased right ventricular size with slightly diminished ejection fraction. Some features of right ventricular hypertrophy No gross valvular abnormalities . There is no pericardial effusion. There are no intracardiac masses. Compared to the study from 03/21/2023, there is slight drop in the LV ejection fraction . Dr Shan Schmitt MD FACC (Electronically Signed) Final Date: 14 June 2025 13:53 S
[2025-06-14 05:55] LABS: Cholesterol 107 mg/dL (0-200); Free T4 Free Thyroxine 1.47 ng/dL (0.82-1.77); HDL Cholesterol 39 mg/dL (60-100); Magnesium 2.1 mg/dL (1.7-2.3); Thyroid Stimulating Hormone 0.08 uIU/mL (0.27-4.20); Triglycerides 72 mg/dL (0-150)
--- NOTE | 2025-06-14 08:46 | ECG_ITS ---
[facility] Test Date: 2025-06-14 Pat Name: Yong Small Department: Room: 103 Gender: Male Taper/Finisher: : 1950 Requested By: Josiah Acuna Order Number: [id number] Cora MD: Shan Schmitt M.D. Measurements Intervals Wayne Rate: 96 P: 89 OR: 131 QRS: 64 QRSD: 86 T: -35 QT: 355 QTc: 450 Interpretive Statements SINUS RHYTHM NONSPECIFIC ST & T-WAVE ABNORMALITY Compared to ECG 06/14/2025 02:36:37 Sinus tachycardia no longer present T-wave abnormality still present Electronically Signed On 06-17-2025 00:27:21 BUCK PRESSER by Shan Schmitt M.D. [email or web address]
[2025-06-14 08:53] LABS: Troponin 5 6HR 275.9 ng/L (0-15)
[2025-06-14 08:54] LABS: Troponin 5 6HR Delta 40.9 ng/L (0-12)
[2025-06-14 11:55] LABS: Troponin T (5th) Once 276 ng/L (0-15)
[2025-06-14] MEDS: methylPREDNISolone sod succ 125 mg/2 mL INJ 60 MG IVP ×2 (13:27→20:32)
--- NOTE | 2025-06-14 13:36 | PM.MISC ---
Miscellaneous Note Purpose of Documentation: Patient is seen and reviewed. He is a 74-year-old male who was admitted because of difficulty breathing. Found to have COPD exacerbation, he was started on COPD treatment. He reports feeling much better. Note: Earlier today, my attention was called by the RN to patient's troponin levels reported to be high. This was high upon presentation, with repeat levels mildly-moderately rising. First troponin at 2:39 AM was 235, repeat troponin 2 hours later was 269, while the 3rd done 4 hours after that was 275. The last troponin done another 4 hours later was 276. He got a one-time dose of Lovenox, as well as 300 mg of Plavix plus daily aspirin. I went ahead and consulted with the housekeeper head for further evaluation. We will continue the ongoing Lovenox at therapeutic dose of 60 mg SubQ q.12hours. Continue other ongoing COPD treatment plans. Further plans to be adjusted as clinical picture evolves.
--- NOTE | 2025-06-14 17:20 | PM.CONSULT ---
Providers/Reason For Consult Consulting Physician/Specialty*: GWEN Schmitt MD/cardiology Reason for Consult*: Patient with COPD exacerbation and troponin T elevation Requesting Physician: Attending Physician: Daren Gonsalez MD History of Present Illness History of Present Illness Yong Small is a 74 year old male is admitted to hospital through the emergency room where he presented with complaints of progressive shortness of breath, fever, chills and cough. He was found to have elevated troponin T and BNP. Cardiology consult is requested for further cardiac evaluation recommendations. This patient apparently has a history of severe COPD/emphysema. He been having progressive shortness of breath over the last 2 to 3 weeks. He also very had a low-grade fever over the last 48 hours. He is in a fdc. According to the patient, he he is not being taken care of well at the fdc. He had some chest pain on the day of hospital admission. Patient is somewhat vague about the symptoms. He is a very poor historian. He has no previous history of coronary coronary disease, myocardial infarction or congestive heart failure. He was admitted to this hospital in 2022 with a altered mental status and some respiratory distress. He apparently was living alone at that time with no running water and many other amenities. He was also found to be dehydrated at that time. He has a history of heavy smoking abuse, more than [id number] history of smoking-started smoking at the age of 14. No alcohol abuse or any other substance abuse. For the last 3 weeks also, he has not been smoking, because of the shortness of breath. His mother had a heart attack in her 80s. No other significant family history. He has no children. His with some diabetes complications. Review of Systems Narrative: CONSTITUTIONAL: No fever or chills. EYES: No blurring of vision or other visual disturbances lately. ENT: No hoarseness of voice, auditory disturbances or sore throat. CARDIOVASCULAR: As mentioned above. RESPIRATORY: Severe COPD, on home oxygen, 3 L/min by nasal cannula GASTROINTESTINAL: No hematemesis or melena. GENITOURINARY: No dysuria or hematuria. INTEGUMENTARY: No skin rashes or history of skin cancer. NEURO: Hospital admission for altered mental status in 2022 PSYCHIATRIC: No history of psychosis or major depression. HEMATOLOGIC: No bleeding disorders or significant anemia. ENDOCRINE: No history of polyuria or polydipsia. MUSCULOSKELETAL: No recent joint pain or swelling. ALLERGY/IMMUNOLOGY: As mentioned above. Medications/Allergies Home Medications ?Medication ?Instructions ?Recorded ?Confirmed ?Last Taken ?Type albuterol sulfate 90 mcg/actuation 2 puff inhalation Q4H PRN 03/18/23 06/14/25 05/30/25 History aerosol inhaler (Ventolin HFA) Shortness Of Breath budesonide-formoterol HFA 160 2 puff inhalation BID 03/18/23 06/14/25 06/13/25 20:00 History mcg-4.5 mcg/actuation aerosol inhaler (Symbicort) ipratropium 20 mcg-albuterol 100 1 puff inhalation QID PRN 03/18/23 06/14/25 06/13/25 19:00 History mcg/actuation mist for inhalation Shortness Of Breath (Combivent Respimat) omeprazole 20 mg capsule,delayed 20 mg PO DAILY 03/18/23 06/14/25 06/13/25 07:00 History release potassium chloride 8 mEq 8 meq PO DAILY 03/18/23 06/14/25 06/13/25 07:30 History capsule,extended release tiotropium bromide 18 mcg capsule 1 cap inhalation DAILY 03/18/23 06/14/25 06/13/25 10:00 History with inhalation device (Spiriva with HandiHaler) acetaminophen 325 mg tablet 650 mg PO Q4H PRN Pain 09/10/24 06/14/25 06/13/25 10:00 History albuterol sulfate 2.5 mg/3 mL 2.5 mg inhalation Q4H 09/10/24 06/14/25 06/13/25 19:55 History (0.083 %) solution for nebulization cetirizine 5 mg tablet 5 mg PO DAILY 09/10/24 06/14/25 06/13/25 07:00 History clobetasol 0.05 % topical ointment 1 applic topical BID 09/10/24 06/14/25 06/13/25 19:00 History diclofenac sodium 1 % topical gel 2 g topical TID 09/10/24 06/14/25 06/13/25 20:00 History loperamide 2 mg capsule (Imodium 2 mg PO Q4H PRN Constipation 09/10/24 06/14/25 Unknown History A-D) tacrolimus 0.1 % topical ointment 1 applic topical BID 09/10/24 06/14/25 06/08/25 History bisacodyl 5 mg tablet 10 mg PO DAILY PRN Constipation 06/14/25 06/14/25 Unknown History Allergies Allergy/AdvReac Type Severity Reaction Status Date / Time No Known Allergies Allergy Verified 03/17/23 20:48 Current Medications Generic Name Dose Route Start Last Admin Trade Name Freq PRN Reason Stop Dose Admin Albuterol/Ipratropium 3 ml 06/14/25 08:00 06/14/25 15:09 Ipratropium-Albuterol 3 Ml Neb INHALATION 3 ml Q4H.RESPIRATORY SONALI Administration Aspirin 81 mg 06/14/25 05:19 06/14/25 05:50 Aspirin 81 Mg Ec Tablet PO Not Given DAILY SONALI Enoxaparin Sodium 60 mg 06/14/25 16:00 06/14/25 16:44 Enoxaparin 60 Mg/0.6 Ml Syringe SUBCUT 60 mg Q12H SONALI Administration Isosorbide Mononitrate 30 mg 06/14/25 05:19 06/14/25 05:53 Isosorbide Mononitrate Er 30 Mg Tablet PO 30 mg DAILY SONALI Administration Methylprednisolone Sodium Succinate 60 mg 06/14/25 05:19 06/14/25 13:27 Methylprednisolone Sod Succ 125 Mg/2 Ml Inj IVP 60 mg Q8H SONALI Administration Metoprolol Tartrate 12.5 mg 06/14/25 09:00 06/14/25 08:02 Metoprolol Tartrate 25 Mg Tablet PO 12.5 mg BID@0900,2100 SONALI Administration Pantoprazole Sodium 40 mg 06/14/25 05:19 06/14/25 05:[address] 40 Mg Tablet PO 40 mg DAILY SONALI Administration PFSH Acute PFSH: Medical History History of smoking History of echocardiogram 2017 EF 65%, grade I/IV diastolic dysfunction COPD (chronic obstructive pulmonary disease) Surgical History No history of previous surgery Family History Mother CAD (coronary artery disease) Social History Smoking and tobacco/nicotine status: former use of tobacco/nicotine Alcohol intake: unknown Substance/Drug Use: unknown Additional social history: Lives in a house without running water, a neighbor brings him water. He has electricity. Household members: none Vitals/I&O/Wt Last Vital Signs Temp 97.6 F 06/14/25 15:46 Pulse 87 06/14/25 15:46 Resp 19 H 06/14/25 15:46 BP 124/75 06/14/25 15:46 Pulse Ox 95 06/14/25 15:46 O2 Del Method Nasal Cannula 06/14/25 15:46 O2 Flow Rate 2 06/14/25 15:20 FiO2 40 06/14/25 06:20 06/14/25 06/14/25 06/14/25 06:59 14:59 22:59 Intake Total 50 / 50 400 / 400 300 / 700 Balance 50 / 50 400 / 400 300 / 700 Weight last 48 hrs Weight 138 lb 10.732 oz Weight 150 lb Physical Exam Narrative: GENERAL: The patient is alert and oriented times three. Not in any acute distress. Unkempt HEENT: No significant pallor, icterus or lymphadenopathy.Oral cavity: There are no mucous membrane lesions. NECK: Trachea appears to be central. No masses noted. No JVD or thyromegaly appreciated. RESPIRATORY: Chest is symmetrical. No intercostals muscle retraction or any accessory muscle activation. Breath sounds are heard bilaterally with a diminished intensity. Occasional coarse crackles. BREASTS: Deferred. HEART: The heart sounds are normal. No S3 or S4. No significant murmurs. No pericardial rub ABDOMEN: No vessel pulsations or distention. No tenderness. No organomegaly appreciated. Bowel sounds are normally heard. : Deferred. RECTAL: Deferred. LYMPHATIC: No lymphadenopathy noted in the neck. EXTREMITIES: No edema or cyanosis. No clubbing. MUSCULOSKELETAL: No acute joint deformities or swelling SKIN: There are no significant rashes or ecchymosis NEUROPSYCHIATRIC: The patient is alert and oriented x3. Appears to be in a good mood. No tremors or rigidity noted. Data 06/14/25 02:39 06/14/25 02:39 Micro: Microbiology 06/14/25 02:58 Blood Culture - Preliminary Blood SPECIMEN COLLECTED 06/14/25 02:55 Blood Culture - Preliminary Blood SPECIMEN COLLECTED A&P Assessment and plan 1. Elevated troponin: Most likely the patient had a non-ST elevation myocardial infarction. His troponin Ts remains elevated. He came with a troponin in the 250s and had a 6-hour delta of around 40 2. Community acquired pneumonia, unspecified laterality: Management as per the primary attending 3. Acute exacerbation of chronic obstructive airways disease: Patient seems to have evidence of pulmonary hypertension optimize bronchodilator treatment 4. Abnormal EKG: Diffuse nonspecific ST-T changes, may suggest ischemia. The echocardiogram is unremarkable. Plan: Patient be treated with subcu Lovenox, Plavix, aspirin, beta-eliana and nitrates. Careful IV diuresis on a as needed basis Consider cardiac catheterization once the respiratory status is stable. Based on the clinical progress, further recommendations will be made. Thank you for the opportunity to evaluate this patient and make these recommendations PDMP PDMP Reviewed: Not Reviewed Coding Level of Care Code 19222 Diagnoses Elevated troponin R79.89 Community acquired pneumonia, unspecified laterality J18.9 Laterality: unspecified laterality Acute exacerbation of chronic obstructive airways disease J44.1 Abnormal EKG R94.31
[2025-06-14 17:40] LABS: Troponin T (5th) Once 253 ng/L (0-15)
[2025-06-14] MEDS: FUROsemide 10 mg/mL SDV 2mL 20 MG IVP (18:36)
[2025-06-15] VITALS (23 sets, daily range): BP systolic 110–129; BP diastolic 63–76; PULSE 76–100; RESP 16–26; TEMP 36.2–37; O2SAT 90–98
[2025-06-15] MEDS: methylPREDNISolone sod succ 125 mg/2 mL INJ 60 MG IVP ×3 (04:37→20:39)
[2025-06-15] MEDS: FUROsemide 10 mg/mL SDV 2mL 20 MG IVP (04:37)
--- NOTE | 2025-06-15 05:00 | ECG_ITS ---
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 Measurements Intervals [place] Rate: 82 P: 81 FL: 141 QRS: 70 QRSD: 86 T: -70 QT: 385 QTc: 450 Interpretive Statements SINUS RHYTHM ST DEVIATION AND MARKED T-WAVE ABNORMALITY, CONSIDER ANTERIOR ISCHEMIA [-0.5+ mV T-WAVE IN V3/V4] Compared to ECG 06/14/2025 06:08:13 Possible ischemia now present T-wave abnormality still present Electronically Signed On 06-17-2025 00:14:17 SENIOR TECHNICAL ARCHITECT by Shan Schmitt M.D. [email or web address]
[2025-06-15 06:01] LABS: Hematocrit 32.2 % (37-53); Hemoglobin 10.10 g/dL (11.27-16.99); Mean Corpuscular HGB Conc 31.4 g/dL (30-55); Mean Corpuscular Hemoglobin 31.9 pg (27-33); Mean Corpuscular Volume 101.6 fl (82-101); Nucleated Red Blood Cells % 0 %; Platelet Count 279 10^3/cmm (157-399); Red Blood Count 3.17 10^6/uL (3.85-5.65); White Blood Count 11.14 10^3/uL (3.29-11.43)
[2025-06-15 06:32] LABS: Anion Gap 8.1 (5-19); Blood Urea Nitrogen 57 mg/dL (8-23); Calcium 8.9 mg/dL (8.5-10.5); Carbon Dioxide 35 mmol/L (22-29); Chloride 100 mmol/L (98-107); Glucose 191 mg/dL (65-115); Osmolality Calculated 309 mOsm/kg (285-295); Potassium 4.1 mmol/L (3.5-5.1); Sodium 139 mmol/L (136-145)
--- NOTE | 2025-06-15 07:30 | PC.NURSE ---
Belongings: Pt has a black plastic bag full of his stuff tucked in bed with him which he does not like out of his reach or sight. It is noted he has an uncounted amount of dorado in this bag.
--- NOTE | 2025-06-15 07:49 | PM.PN ---
Subjective Subjective: Patient is feeling much better. Denies any chest pain or chest tightness. The vitals are stable. Medications: Medication Review Details: Current Medications Acetaminophen (Acetaminophen 325 Mg Tablet) 650 mg PO Q6H PRN PRN Reason: Mild/Mod Pain Or Temp >/= 101 Last Admin: 06/15/25 04:37 Dose: 650 mg Albuterol/Ipratropium (Ipratropium-Albuterol 3 Ml Neb) 3 ml INHALATION Q4H.RESPIRATORY SONALI Last Admin: 06/15/25 07:32 Dose: 3 ml Aspirin (Aspirin 81 Mg Ec Tablet) 81 mg PO DAILY SONALI Last Admin: 06/15/25 04:37 Dose: 81 mg Atorvastatin Calcium (Atorvastatin 40 Mg Tablet) 60 mg PO BEDTIME [facility] Last Admin: 06/14/25 20:32 Dose: 60 mg Enoxaparin Sodium (Enoxaparin 60 Mg/0.6 Ml Syringe) 60 mg SUBCUT Q12H SONALI Last Admin: 06/15/25 04:37 Dose: 60 mg Furosemide (Furosemide 10 Mg/Ml Sdv 2ml) 20 mg IVP Q12H SONALI Last Admin: 06/15/25 04:37 Dose: 20 mg Isosorbide Mononitrate (Isosorbide Mononitrate Er 30 Mg Tablet) 30 mg PO DAILY [facility] Last Admin: 06/15/25 04:37 Dose: 30 mg Methylprednisolone Sodium Succinate (Methylprednisolone Sod Succ 125 Mg/2 Ml Inj) 60 mg IVP Q8H SONALI Last Admin: 06/15/25 04:37 Dose: 60 mg Metoprolol Tartrate (Metoprolol Tartrate 25 Mg Tablet) 12.5 mg PO BID@0900,2100 [facility] Last Admin: 06/14/25 20:32 Dose: 12.5 mg Ondansetron HCl (Ondansetron 2 Mg/Ml Sdv 2 Ml) 4 mg IVP Q6H PRN PRN Reason: vomiting, or N/V if npo Pantoprazole Sodium (Pantoprazole Dr 40 Mg Tablet) 40 mg PO DAILY [facility] Last Admin: 06/15/25 04:37 Dose: 40 mg Vitals/I&O/Wt Last Vital Signs Temp 98.6 F 06/15/25 03:16 Pulse 77 06/15/25 07:32 Resp 18 06/15/25 07:32 BP 110/67 06/15/25 03:16 Pulse Ox 93 06/15/25 07:32 O2 Del Method Nasal Cannula 06/15/25 07:32 O2 Flow Rate 2 06/15/25 07:32 FiO2 40 06/14/25 06:20 06/14/25 06/15/25 06/15/25 22:59 06:59 14:59 Intake Total 540 / 940 150 / 1090 Balance 540 / 940 150 / 1090 Weight last 48 hrs Weight 63 lb 9.6 oz Weight 138 lb 10.732 oz Weight 150 lb Physical Exam Narrative: GENERAL: The patient is alert and oriented times three. Not in any acute distress. Unkempt HEENT: No significant pallor, icterus or lymphadenopathy.Oral cavity: There are no mucous membrane lesions. NECK: Trachea appears to be central. No masses noted. No JVD or thyromegaly appreciated. RESPIRATORY: Chest is symmetrical. No intercostals muscle retraction or any accessory muscle activation. Breath sounds are heard bilaterally with a diminished intensity. Occasional coarse crackles. BREASTS: Deferred. HEART: The heart sounds are normal. No S3 or S4. No significant murmurs. No pericardial rub ABDOMEN: No vessel pulsations or distention. No tenderness. No organomegaly appreciated. Bowel sounds are normally heard. : Deferred. RECTAL: Deferred. LYMPHATIC: No lymphadenopathy noted in the neck. EXTREMITIES: No edema or cyanosis. No clubbing. MUSCULOSKELETAL: No acute joint deformities or swelling SKIN: There are no significant rashes or ecchymosis NEUROPSYCHIATRIC: The patient is alert and oriented x3. Appears to be in a good mood. No tremors or rigidity noted. Data 06/15/25 04:25 06/15/25 04:25 Other Labs: Laboratory Last Values WBC 11.14 10^3/uL (3.29-11.43) 06/15/25 04:25 RBC 3.17 10^6/uL (3.85-5.65) L 06/15/25 04:25 Hgb 10.10 g/dL (11.27-16.99) L 06/15/25 04:25 Hct 32.2 % (37-53) L 06/15/25 04:25 MCV 101.6 fl (82-101) H 06/15/25 04:25 MCH 31.9 pg (27-33) 06/15/25 04:25 MCHC 31.4 g/dL (30-55) 06/15/25 04:25 RDW 12.4 % (12.1-15.1) 06/15/25 04:25 Plt Count 279 10^3/cmm (157-399) 06/15/25 04:25 MPV 9.1 fL (7.4-10.4) 06/15/25 04:25 Neut % (Auto) 92.5 % 06/15/25 04:25 Lymph % (Auto) 3.1 % 06/15/25 04:25 [place] % (Auto) 3.8 % 06/15/25 04:25 Eos % (Auto) 0.0 % 06/15/25 04:25 Baso % (Auto) 0.2 % 06/15/25 04:25 Neut # (Auto) 10.30 10^3/uL (1.8-7.7) H 06/15/25 04:25 Lymph # (Auto) 0.4 10^3/uL (0.8-4.8) L 06/15/25 04:25 [place] # (Auto) 0.4 10^3/uL (0.2-0.9) 06/15/25 04:25 Eos # (Auto) 0.0 10^3/uL (0.0-0.8) 06/15/25 04:25 Baso # (Auto) 0.0 10^3/uL (0.0-0.1) 06/15/25 04:25 Nucleated RBC % (auto) 0 % 06/15/25 04:25 Nucleated RBCs # 0.0 /100WBC 06/15/25 04:25 Specimen Type Arterial 06/14/25 03:05 Sample Site Brachial, right 06/14/25 03:05 ABG pH 7.29 (7.35-7.45) L 06/14/25 03:05 ABG pCO2 55.8 mmHg (35-45) H 06/14/25 03:05 ABG pO2 91.8 mmHg (80.0-100.0) 06/14/25 03:05 ABG HCO3 26.7 mmol/L (22-26) H 06/14/25 03:05 ABG Base Excess -0.7 mmol/L (-2.0-2.0) 06/14/25 03:05 [place] Test N/a 06/14/25 03:05 Hematocrit 35.2 % (42-52) L 06/14/25 03:05 Hgb O2 Saturation 94.1 % (95-100) L 06/14/25 03:05 Carboxyhemoglobin 1.6 %THgb (0.4-20.1) 06/14/25 03:05 Methemoglobin 1.1 % (0.4-1.5) 06/14/25 03:05 Total Hemoglobin 11.5 g/dL (14-18) L 06/14/25 03:05 O2 Delivery Device Nc 06/14/25 03:05 O2 Liters/Min 3.0 % 06/14/25 03:05 Form Drafter ID [email or web address] 06/14/25 03:05 Sodium 139 mmol/L (136-145) 06/15/25 04:25 Potassium 4.1 mmol/L (3.5-5.1) 06/15/25 04:25 Chloride 100 mmol/L (98-107) 06/15/25 04:25 Carbon Dioxide 35 mmol/L (22-29) H 06/15/25 04:25 Anion Gap 8.1 (5-19) 06/15/25 04:25 BUN 57 mg/dL (8-23) H 06/15/25 04:25 Creatinine 1.3 mg/dL (0.7-1.2) H 06/15/25 04:25 GFR Calculation Not Reportable 06/15/25 04:25 Glucose 191 mg/dL (65-115) H 06/15/25 04:25 Calculated Osmolality 309 mOsm/kg (285-295) H 06/15/25 04:25 Lactic Acid 1.6 mmol/L (0.5-2.2) 06/14/25 02:39 Calcium 8.9 mg/dL (8.5-10.5) 06/15/25 04:25 Magnesium 2.1 mg/dL (1.7-2.3) 06/14/25 04:34 Total Bilirubin 0.3 mg/dL (0.15-1.2) 06/14/25 02:39 AST 40 U/L (0-40) 06/14/25 02:39 ALT 20 U/L (0-41) 06/14/25 02:39 Alkaline Phosphatase 115 U/L (40-130) 06/14/25 02:39 Troponin T 5th Gen ng/L 253 ng/L (0-15) H* 06/14/25 16:58 Troponin T Baseline 235 ng/L (0-15) H* 06/14/25 02:39 Troponin T 120 Minute 269.0 ng/L (0-15) H 06/14/25 04:34 Delta Troponin T 34.0 ABS# (0-10) H* 06/14/25 04:34 Troponin T Hi Sens 6Hr 275.9 ng/L (0-15) H 06/14/25 08:10 Troponin T Hi Sens 6Hr Delta 40.9 ng/L (0-12) H* 06/14/25 08:10 NT-Pro-B Natriuret Pep 5449 pg/mL (0-125) H 06/14/25 02:39 Total Protein 6.9 g/dL (6.6-8.7) 06/14/25 02:39 Albumin 3.7 g/dL (3.5-5.2) 06/14/25 02:39 Globulin 3.2 g/dL (1.3-4.6) 06/14/25 02:39 Triglycerides 72 mg/dL (0-150) 06/14/25 04:34 Cholesterol 107 mg/dL (0-200) 06/14/25 04:34 LDL Cholesterol, Calc 54 mg/dL (50-129) 06/14/25 04:34 HDL Cholesterol 39 mg/dL (60-100) L 06/14/25 04:34 LDL/HDL Ratio 1.38 RATIO (0.00-3.22) 06/14/25 04:34 Cholesterol/HDL Ratio 2.74 mg/dL (1.0-5.00) 06/14/25 04:34 TSH 0.08 uIU/mL (0.27-4.20) L 06/14/25 04:34 Free T4 1.47 ng/dL (0.82-1.77) 06/14/25 04:34 Influenza A (PCR) Negative (Negative) 06/14/25 03:02 Influenza Type B (PCR) Negative (Negative) 06/14/25 03:02 RSV (PCR) Negative (Negative) 06/14/25 03:02 SARS-CoV-2 (PCR) Negative (Negative) 06/14/25 03:02 Micro: Microbiology 06/14/25 02:58 Blood Culture - Preliminary Blood NEGATIVE TO DATE 06/14/25 02:55 Blood Culture - Preliminary Blood NEGATIVE TO DATE A&P Assessment and plan 1. Elevated troponin: Patient is her clinical features are consistent with a non-ST relation myocardial infarction. For further evaluation of his coronary status, he requires a cardiac catheterization. 2. Acute kidney injury: Patient may be carefully treated with IV fluids. 3. Abnormal EKG: Diffuse nonspecific ST-T changes, may suggest ischemia. The echocardiogram is unremarkable. 4. Community acquired pneumonia, unspecified laterality: Clinically seems to be improving. Management as per the primary attending 5. Acute exacerbation of chronic obstructive airways disease: Patient seems to have evidence of pulmonary hypertension optimize bronchodilator treatment Plan: Other problems Mild anemia Generalized emaciation Patient is requested cardiac catheterization. However because of his kidney injury, I would like to see the kidney function stabilized before taking him to the [facility]. I may give a slow IV infusion of normal saline, 75 cc/h Will do the BMP tomorrow Based on the results further recommendations will be made PDMP PDMP Reviewed: Not Reviewed Attestations Medical Necessity Statement*: Patient requires continued hospital stay for close monitoring and further management Coding Level of Care Code 51875 Diagnoses Elevated troponin R79.89 Acute kidney injury N17.9 Abnormal EKG R94.31 Community acquired pneumonia, unspecified laterality J18.9 Laterality: unspecified laterality Acute exacerbation of chronic obstructive airways disease J44.1
--- NOTE | 2025-06-15 08:28 | P.PN_ITS ---
Subjective 2 Subjective: Seen today in the stepdown unit, patient reports feeling much better today. He is on oxygen by nasal cannula. He denies any more chest pain. He is awaiting further evaluation by cardiology. Vitals/I&O/Wt Last Vital Signs Temp 97.4 F L 06/15/25 08:00 Pulse 88 06/15/25 08:00 Resp 26 H 06/15/25 08:00 BP 124/63 06/15/25 08:00 Pulse Ox 93 06/15/25 08:00 O2 Del Method Nasal Cannula 06/15/25 08:00 O2 Flow Rate 2 06/15/25 07:32 FiO2 40 06/14/25 06:20 06/14/25 06/15/25 06/15/25 22:59 06:59 14:59 Intake Total 540 / 940 150 / 1090 240 / 240 Balance 540 / 940 150 / 1090 240 / 240 Weight last 48 hrs Weight 28.848 kg Weight 62.9 kg Weight 68.039 kg Physical Exam 2 Narrative: General: Awake and alert. Cooperative. Chest/Resp: Bilateral decreased/diminished breath sounds. No remarkable crackles appreciated. Some wheezes. CVS: Rhythm: Regular heart rate and rhythm. GI: Non-distended; No obvious organomegaly. Extremities: No obvious pitting pedal edema. Skin: No obvious new rashes or new skin lesions. Data 06/15/25 04:25 06/15/25 04:25 Micro: Microbiology 06/14/25 02:58 Blood Culture - Preliminary Blood NEGATIVE TO DATE 06/14/25 02:55 Blood Culture - Preliminary Blood NEGATIVE TO DATE CXR: My impression: Left-sided fluffy to dense opacity on the lower side, with obliteration of the left costophrenic angle. Radiologist's impression: Small pleural effusion A&P Assessment and plan 1. Acute exacerbation of chronic obstructive airways disease: Resolving. There is a mention of pneumonia, which I do not quite appreciate at this time. However, I am adding IV doxycycline to patient's medications. 2. Respiratory failure with hypoxia and hypercapnia: Also resolving. 3. Elevated troponin: Rule out NSTEMI. Otherwise stable. Plan: Currently stable patient. Continue ongoing treatment plans for his COPD exacerbation. Regarding the elevated troponins, I will defer the advice from cardiology. PDMP PDMP Reviewed: Not Reviewed Attestations 2 Medical Necessity Statement*: Patient still requiring IV antibiotics, IV Solu-Medrol, and DuoNeb orders, pending further evaluation from cardiology for suspected NSTEMI. Working at least 1 more night of inpatient hospital stay to optimize treatment, and diagnose and treat. Coding Level of Care Code Acute Code for Chg Fwd Diagnoses Acute exacerbation of chronic obstructive airways disease J44.1 Respiratory failure with hypoxia and hypercapnia J96.91; J96.92 Elevated troponin R79.89
--- NOTE | 2025-06-15 10:09 | PC.CHAP ---
Pastoral Care Encounter/Spiritual Assessment Type of Contact [] Declined division plant engineer visit [] Patient/Family/Request visit [] Outpatient visit [] Follow-up visit [] Physician referral [] Code/Alert [x] Routine visit [] Staff referral [] Actively dying [] Patient sleeping [] Family support [] [] Out of room [] Palliative care [] [] Receiving care in room [] Pre-surgical visit [] Trauma [] Long length of stay [] ICU visit [] Other: Relational/Emotional Strength [] Patient feels connected with others/family/visitors/staff [x] Distress [] Loneliness/isolation [] Abandonment Spirituality of Patient [x] Person of Alyssa [] Attends Moravian of their Alyssa [x] Believes in Prayer [] Reads Bible or Voodoo materials [] There are Spiritual issues to be addressed [employer] Coach Interventions [x] Prayer [x] Active listening x[] Non-anxious presence [x] Spiritual/emotional support [] Crisis/trauma care [] Spiritual counseling [] Bereavement support [] Provided bereavement packet [] Provided Bible/devotional materials [] Provided toy/stuffed animal, coloring book to patient or family member [] Provided Communion [] Anointing/[place] [] Salvation [x] Completed spiritual assessment [] Other: Impact on Illness or Injury [] Angry [] Fearful [] Anxious [] Often cries [] Exhaustion [] Unable to work [] Unable to attend latter day [] Unable to walk/stand [] Unable to read [] Unable to drive [] Unable to eat/drink [] Unable to sleep [] Unable to be with family [] Patient intubated [] Other: Summary Time spent with patient 5 min
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
[2025-06-15] MEDS: doxycycline 100 MG in sodium chloride 0.9% (plus) 100 ML IV (13:49)
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
[2025-06-16] VITALS (16 sets, daily range): BP systolic 125–148; BP diastolic 67–86; PULSE 78–103; RESP 14–24; TEMP 36.6–36.9; O2SAT 90–97
[2025-06-16] MEDS: doxycycline 100 MG in sodium chloride 0.9% (plus) 100 ML IV ×2 (01:10→13:48)
[2025-06-16] MEDS: methylPREDNISolone sod succ 125 mg/2 mL INJ 60 MG IVP (04:35)
[2025-06-16 05:12] LABS: Anion Gap 13.9 (5-19); Blood Urea Nitrogen 45 mg/dL (8-23); Calcium 8.7 mg/dL (8.5-10.5); Carbon Dioxide 32 mmol/L (22-29); Chloride 102 mmol/L (98-107); Glucose 149 mg/dL (65-115); Osmolality Calculated 312 mOsm/kg (285-295); Potassium 3.9 mmol/L (3.5-5.1); Sodium 144 mmol/L (136-145)
--- NOTE | 2025-06-16 11:14 | PM.PN ---
Subjective Subjective: Seen again this morning in the stepdown unit, patient reports stable symptoms. He is still waiting for possible heart cath from the nurses' association counselor. Cardiology is worried about his kidney function. He is requesting for discharge as soon as he is good to go home. Vitals/I&O/Wt Last Vital Signs Temp 98.2 F 06/16/25 08:00 Pulse 89 06/16/25 08:13 Resp 18 06/16/25 08:13 BP 126/85 06/16/25 08:00 Pulse Ox 93 06/16/25 08:13 O2 Del Method Nasal Cannula 06/16/25 08:13 O2 Flow Rate 2 06/16/25 08:13 FiO2 40 06/14/25 06:20 06/15/25 06/16/25 06/16/25 22:59 06:59 14:59 Intake Total 340 / 820 100 / 920 360 / 360 Balance 340 / 820 100 / 920 360 / 360 Weight last 48 hrs Weight 62.233 kg Weight 63 kg Weight 28.848 kg Physical Exam Narrative: General: Awake and alert. Cooperative. Chest/Resp: Normal respiratory chest movts; no obvious respiratory distress. Auscultation deferred. CVS: Mildly tachycardic, otherwise, regular rhythm. GI: Non-distended; No obvious organomegaly. Extremities: No obvious pitting pedal edema. Skin: No obvious new rashes or new skin lesions. Data 06/15/25 04:25 06/16/25 03:51 A&P Assessment and plan 1. Acute exacerbation of chronic obstructive airways disease: 2. Elevated troponin: 3. Non-ST elevated myocardial infarction (non-STEMI): 4. Respiratory failure with hypoxia and hypercapnia: Plan: From the respiratory standpoint, patient is otherwise stable. I will go ahead and de-escalate the steroids to oral prednisone. I am waiting for advice from cardiology regarding the elevated troponin. Acute kidney function looks okay to me. Patient is definitely dehydrated, which explains the elevated BUN. Anticipate discharge today or tomorrow. PDMP PDMP Reviewed: Not Reviewed Attestations Medical Necessity Statement*: Patient is considerately estimated to likely to need up to another mid-night stay in the medical floor on inpatient status so as to hopefully optimally treat the acute medical problems and their symptoms and further control comorbidities. Coding Level of Care Code Acute Code for Chg Fwd Diagnoses Acute exacerbation of chronic obstructive airways disease J44.1 Elevated troponin R79.89 Non-ST elevated myocardial infarction (non-STEMI) I21.4 Respiratory failure with hypoxia and hypercapnia J96.91; J96.92
--- NOTE | 2025-06-16 14:02 | P.PN_ITS ---
Subjective 2 Subjective: The patient is feeling okay. The BUN and creatinine levels are coming down with hydration. no chest pain or palpitations. Medications: Medication Review Details: Current Medications Acetaminophen (Acetaminophen 325 Mg Tablet) 650 mg PO Q6H PRN PRN Reason: Mild/Mod Pain Or Temp >/= 101 Last Admin: 06/16/25 13:48 Dose: 650 mg Albuterol/Ipratropium (Ipratropium-Albuterol 3 Ml Neb) 3 ml INHALATION Q4H.RESPIRATORY SONALI Last Admin: 06/16/25 12:30 Dose: 3 ml Aspirin (Aspirin 81 Mg Ec Tablet) 81 mg PO DAILY SONALI Last Admin: 06/16/25 04:35 Dose: 81 mg Atorvastatin Calcium (Atorvastatin 40 Mg Tablet) 60 mg PO BEDTIME SONALI Last Admin: 06/15/25 20:39 Dose: 60 mg Enoxaparin Sodium (Enoxaparin 60 Mg/0.6 Ml Syringe) 60 mg SUBCUT Q12H SONALI Last Admin: 06/16/25 04:35 Dose: 60 mg Doxycycline Hyclate 100 mg/ (Sodium Chloride) 100 mls @ 100 mls/hr IV Q12H [facility]; Protocol Last Admin: 06/16/25 13:48 Dose: 100 mls/hr Sodium Chloride (Sodium Chloride 0.9%) 1,000 mls @ 75 mls/hr IV .[id number] SONALI Last Admin: 06/16/25 13:49 Dose: 75 mls/hr Isosorbide Mononitrate (Isosorbide Mononitrate Er 30 Mg Tablet) 30 mg PO DAILY SONALI Last Admin: 06/16/25 04:35 Dose: 30 mg Metoprolol Tartrate (Metoprolol Tartrate 25 Mg Tablet) 12.5 mg PO BID@0900,2100 SONALI Last Admin: 06/16/25 08:19 Dose: 12.5 mg Ondansetron HCl (Ondansetron 2 Mg/Ml Sdv 2 Ml) 4 mg IVP Q6H PRN PRN Reason: vomiting, or N/V if npo Pantoprazole Sodium (Pantoprazole Dr 40 Mg Tablet) 40 mg PO DAILY SONALI Last Admin: 06/16/25 04:35 Dose: 40 mg Prednisone (Prednisone 20 Mg Tablet) 40 mg PO DAILY SONALI Last Admin: 06/16/25 13:49 Dose: 40 mg Vitals/I&O/Wt Last Vital Signs Temp 98.2 F 06/16/25 08:00 Pulse 102 H 06/16/25 12:31 Resp 18 06/16/25 12:31 BP 127/70 06/16/25 12:00 Pulse Ox 97 06/16/25 12:31 O2 Del Method Nasal Cannula 06/16/25 12:31 O2 Flow Rate 2 06/16/25 12:31 FiO2 40 06/14/25 06:20 06/15/25 06/16/25 06/16/25 22:59 06:59 14:59 Intake Total 340 / 820 100 / 920 1308.75 / 1308.75 Balance 340 / 820 100 / 920 1308.75 / 1308.75 Weight last 48 hrs Weight 137 lb 3.2 oz Weight 138 lb 14.259 oz Weight 63 lb 9.6 oz Physical Exam 2 Narrative: GENERAL: The patient is alert and oriented times three. Not in any acute distress. Unkempt HEENT: No significant pallor, icterus or lymphadenopathy.Oral cavity: There are no mucous membrane lesions. NECK: Trachea appears to be central. No masses noted. No JVD or thyromegaly appreciated. RESPIRATORY: Chest is symmetrical. No intercostals muscle retraction or any accessory muscle activation. Breath sounds are heard bilaterally with a diminished intensity. Occasional coarse crackles. BREASTS: Deferred. HEART: The heart sounds are normal. No S3 or S4. No significant murmurs. No pericardial rub ABDOMEN: No vessel pulsations or distention. No tenderness. No organomegaly appreciated. Bowel sounds are normally heard. : Deferred. RECTAL: Deferred. LYMPHATIC: No lymphadenopathy noted in the neck. EXTREMITIES: No edema or cyanosis. No clubbing. MUSCULOSKELETAL: No acute joint deformities or swelling SKIN: There are no significant rashes or ecchymosis NEUROPSYCHIATRIC: The patient is alert and oriented x3. Appears to be in a good mood. No tremors or rigidity noted. Data 06/17/25 05:18 06/17/25 05:18 Other Labs: Laboratory Last Values WBC 11.14 10^3/uL (3.29-11.43) 06/15/25 04:25 RBC 3.17 10^6/uL (3.85-5.65) L 06/15/25 04:25 Hgb 10.10 g/dL (11.27-16.99) L 06/15/25 04:25 Hct 32.2 % (37-53) L 06/15/25 04:25 MCV 101.6 fl (82-101) H 06/15/25 04:25 MCH 31.9 pg (27-33) 06/15/25 04:25 MCHC 31.4 g/dL (30-55) 06/15/25 04:25 RDW 12.4 % (12.1-15.1) 06/15/25 04:25 Plt Count 279 10^3/cmm (157-399) 06/15/25 04:25 MPV 9.1 fL (7.4-10.4) 06/15/25 04:25 Neut % (Auto) 92.5 % 06/15/25 04:25 Lymph % (Auto) 3.1 % 06/15/25 04:25 Leon % (Auto) 3.8 % 06/15/25 04:25 Eos % (Auto) 0.0 % 06/15/25 04:25 Baso % (Auto) 0.2 % 06/15/25 04:25 Neut # (Auto) 10.30 10^3/uL (1.8-7.7) H 06/15/25 04:25 Lymph # (Auto) 0.4 10^3/uL (0.8-4.8) L 06/15/25 04:25 Leon # (Auto) 0.4 10^3/uL (0.2-0.9) 06/15/25 04:25 Eos # (Auto) 0.0 10^3/uL (0.0-0.8) 06/15/25 04:25 Baso # (Auto) 0.0 10^3/uL (0.0-0.1) 06/15/25 04:25 Nucleated RBC % (auto) 0 % 06/15/25 04:25 Nucleated RBCs # 0.0 /100WBC 06/15/25 04:25 Specimen Type Arterial 06/14/25 03:05 Sample Site Brachial, right 06/14/25 03:05 ABG pH 7.29 (7.35-7.45) L 06/14/25 03:05 ABG pCO2 55.8 mmHg (35-45) H 06/14/25 03:05 ABG pO2 91.8 mmHg (80.0-100.0) 06/14/25 03:05 ABG HCO3 26.7 mmol/L (22-26) H 06/14/25 03:05 ABG Base Excess -0.7 mmol/L (-2.0-2.0) 06/14/25 03:05 Shalom Test N/a 06/14/25 03:05 Hematocrit 35.2 % (42-52) L 06/14/25 03:05 Hgb O2 Saturation 94.1 % (95-100) L 06/14/25 03:05 Carboxyhemoglobin 1.6 %THgb (0.4-20.1) 06/14/25 03:05 Methemoglobin 1.1 % (0.4-1.5) 06/14/25 03:05 Total Hemoglobin 11.5 g/dL (14-18) L 06/14/25 03:05 O2 Delivery Device Nc 06/14/25 03:05 O2 Liters/Min 3.0 % 06/14/25 03:05 Curator Of Photography [employer]s ID [email or web address] 06/14/25 03:05 Sodium 144 mmol/L (136-145) 06/16/25 03:51 Potassium 3.9 mmol/L (3.5-5.1) 06/16/25 03:51 Chloride 102 mmol/L (98-107) 06/16/25 03:51 Carbon Dioxide 32 mmol/L (22-29) H 06/16/25 03:51 Anion Gap 13.9 (5-19) 06/16/25 03:51 BUN 45 mg/dL (8-23) H 06/16/25 03:51 Creatinine 1.0 mg/dL (0.7-1.2) 06/16/25 03:51 GFR Calculation Not Reportable 06/16/25 03:51 Glucose 149 mg/dL (65-115) H 06/16/25 03:51 Calculated Osmolality 312 mOsm/kg (285-295) H 06/16/25 03:51 Lactic Acid 1.6 mmol/L (0.5-2.2) 06/14/25 02:39 Calcium 8.7 mg/dL (8.5-10.5) 06/16/25 03:51 Magnesium 2.1 mg/dL (1.7-2.3) 06/14/25 04:34 Total Bilirubin 0.3 mg/dL (0.15-1.2) 06/14/25 02:39 AST 40 U/L (0-40) 06/14/25 02:39 ALT 20 U/L (0-41) 06/14/25 02:39 Alkaline Phosphatase 115 U/L (40-130) 06/14/25 02:39 Troponin T 5th Gen ng/L 253 ng/L (0-15) H* 06/14/25 16:58 Troponin T Baseline 235 ng/L (0-15) H* 06/14/25 02:39 Troponin T 120 Minute 269.0 ng/L (0-15) H 06/14/25 04:34 Delta Troponin T 34.0 ABS# (0-10) H* 06/14/25 04:34 Troponin T Hi Sens 6Hr 275.9 ng/L (0-15) H 06/14/25 08:10 Troponin T Hi Sens 6Hr Delta 40.9 ng/L (0-12) H* 06/14/25 08:10 NT-Pro-B Natriuret Pep 5449 pg/mL (0-125) H 06/14/25 02:39 Total Protein 6.9 g/dL (6.6-8.7) 06/14/25 02:39 Albumin 3.7 g/dL (3.5-5.2) 06/14/25 02:39 Globulin 3.2 g/dL (1.3-4.6) 06/14/25 02:39 Triglycerides 72 mg/dL (0-150) 06/14/25 04:34 Cholesterol 107 mg/dL (0-200) 06/14/25 04:34 LDL Cholesterol, Calc 54 mg/dL (50-129) 06/14/25 04:34 HDL Cholesterol 39 mg/dL (60-100) L 06/14/25 04:34 LDL/HDL Ratio 1.38 RATIO (0.00-3.22) 06/14/25 04:34 Cholesterol/HDL Ratio 2.74 mg/dL (1.0-5.00) 06/14/25 04:34 TSH 0.08 uIU/mL (0.27-4.20) L 06/14/25 04:34 Free T4 1.47 ng/dL (0.82-1.77) 06/14/25 04:34 Influenza A (PCR) Negative (Negative) 06/14/25 03:02 Influenza Type B (PCR) Negative (Negative) 06/14/25 03:02 RSV (PCR) Negative (Negative) 06/14/25 03:02 SARS-CoV-2 (PCR) Negative (Negative) 06/14/25 03:02 A&P Assessment and plan 1. Elevated troponin: Patient has clinical features are consistent with a non-ST relation myocardial infarction. For further evaluation of his coronary status, he requires a cardiac catheterization. 2. Acute kidney injury: The BUN/creatinine is still remaining high. We may continue the hydration today 3. Abnormal EKG: Diffuse nonspecific ST-T changes, may suggest ischemia. The echocardiogram is unremarkable. 4. Community acquired pneumonia, unspecified laterality: Clinically seems to be improving. Management as per the primary attending 5. Acute exacerbation of chronic obstructive airways disease: Patient seems to have evidence of pulmonary hypertension optimize bronchodilator treatment Plan: Other problems Mild anemia Generalized emaciation Will continue the hydration today. Possible cardiac catheterization tomorrow Continue on the other current measures. PDMP PDMP Reviewed: Not Reviewed Attestations 2 Medical Necessity Statement*: Patient requires continued hospital stay for close monitoring and further management Coding Level of Care Code 54883 Diagnoses Elevated troponin R79.89 Acute kidney injury N17.9 Abnormal EKG R94.31 Community acquired pneumonia, unspecified laterality J18.9 Laterality: unspecified laterality Acute exacerbation of chronic obstructive airways disease J44.1
[2025-06-17] VITALS (13 sets, daily range): BP systolic 125–154; BP diastolic 62–75; PULSE 76–85; RESP 16–24; TEMP 35.9–36.9; O2SAT 94–100
[2025-06-17] MEDS: doxycycline 100 MG in sodium chloride 0.9% (plus) 100 ML IV ×2 (02:28→16:29)
[2025-06-17 06:06] LABS: Hematocrit 30.3 % (37-53); Hemoglobin 9.10 g/dL (11.27-16.99); Mean Corpuscular HGB Conc 30.0 g/dL (30-55); Mean Corpuscular Hemoglobin 31.5 pg (27-33); Mean Corpuscular Volume 104.8 fl (82-101); Nucleated Red Blood Cells % 0 %; Platelet Count 254 10^3/cmm (157-399); Red Blood Count 2.89 10^6/uL (3.85-5.65); White Blood Count 6.79 10^3/uL (3.29-11.43)
[2025-06-17 06:12] LABS: Magnesium 1.7 mg/dL (1.7-2.3)
[2025-06-17 06:15] LABS: Anion Gap 9.9 (5-19); Blood Urea Nitrogen 31 mg/dL (8-23); Calcium 7.7 mg/dL (8.5-10.5); Carbon Dioxide 29 mmol/L (22-29); Chloride 110 mmol/L (98-107); Glucose 138 mg/dL (65-115); Osmolality Calculated 309 mOsm/kg (285-295); Potassium 3.9 mmol/L (3.5-5.1); Sodium 145 mmol/L (136-145)
[2025-06-17 06:37] LABS: Slide Review Slide Review Perform
--- NOTE | 2025-06-17 07:14 | PM.PN ---
Subjective Subjective: Patient seems to be feeling okay. Still has a baseline shortness of breath with activities. The overall respiratory status is stable Medications: Medication Review Details: . Current Medications Acetaminophen (Acetaminophen 325 Mg Tablet) 650 mg PO Q6H PRN PRN Reason: Mild/Mod Pain Or Temp >/= 101 Last Admin: 06/17/25 00:18 Dose: 650 mg Albuterol/Ipratropium (Ipratropium-Albuterol 3 Ml Neb) 3 ml INHALATION Q4H.RESPIRATORY SONALI Last Admin: 06/17/25 05:26 Dose: 3 ml Aspirin (Aspirin 81 Mg Ec Tablet) 81 mg PO DAILY SONALI Last Admin: 06/17/25 05:12 Dose: 81 mg Atorvastatin Calcium (Atorvastatin 40 Mg Tablet) 60 mg PO BEDTIME SONALI Last Admin: 06/16/25 21:08 Dose: 60 mg Enoxaparin Sodium (Enoxaparin 60 Mg/0.6 Ml Syringe) 60 mg SUBCUT Q12H SONALI Last Admin: 06/17/25 05:13 Dose: Not Given Doxycycline Hyclate 100 mg/ (Sodium Chloride) 100 mls @ 100 mls/hr IV Q12H [facility]; Protocol Last Infusion: 06/17/25 05:29 Dose: Infused Sodium Chloride (Sodium Chloride 0.9%) 1,000 mls @ 75 mls/hr IV .[id number] [facility] Last Admin: 06/17/25 05:29 Dose: 75 mls/hr Isosorbide Mononitrate (Isosorbide Mononitrate Er 30 Mg Tablet) 30 mg PO DAILY SONALI Last Admin: 06/17/25 05:12 Dose: 30 mg Metoprolol Tartrate (Metoprolol Tartrate 25 Mg Tablet) 12.5 mg PO BID@0900,2100 [facility] Last Admin: 06/16/25 21:10 Dose: 12.5 mg Ondansetron HCl (Ondansetron 2 Mg/Ml Sdv 2 Ml) 4 mg IVP Q6H PRN PRN Reason: vomiting, or N/V if npo Pantoprazole Sodium (Pantoprazole Dr 40 Mg Tablet) 40 mg PO DAILY SONALI Last Admin: 06/17/25 05:13 Dose: 40 mg Prednisone (Prednisone 20 Mg Tablet) 40 mg PO DAILY [facility] Last Admin: 06/17/25 05:13 Dose: 40 mg Vitals/I&O/Wt Last Vital Signs Temp 97.8 F 06/17/25 04:00 Pulse 81 06/17/25 05:26 Resp 18 06/17/25 05:26 BP 154/75 06/17/25 04:00 Pulse Ox 99 06/17/25 05:26 O2 Del Method Nasal Cannula 06/17/25 05:26 O2 Flow Rate 2 06/17/25 05:26 FiO2 40 06/14/25 06:20 06/16/25 06/17/25 06/17/25 22:59 06:59 14:59 Intake Total 460 / 2348.75 1360 / 3708.75 Output Total 300 / 300 Balance 160 / 2048.75 1360 / 3408.75 Weight last 48 hrs Weight 144 lb 3.2 oz Weight 137 lb 3.2 oz Weight 138 lb 14.259 oz Physical Exam Narrative: GENERAL: The patient is alert and oriented times three. Not in any acute distress. Unkempt HEENT: No significant pallor, icterus or lymphadenopathy.Oral cavity: There are no mucous membrane lesions. NECK: Trachea appears to be central. No masses noted. No JVD or thyromegaly appreciated. RESPIRATORY: Chest is symmetrical. No intercostals muscle retraction or any accessory muscle activation. Breath sounds are heard bilaterally with a diminished intensity. Occasional coarse crackles. BREASTS: Deferred. HEART: The heart sounds are normal. No S3 or S4. No significant murmurs. No pericardial rub ABDOMEN: No vessel pulsations or distention. No tenderness. No organomegaly appreciated. Bowel sounds are normally heard. : Deferred. RECTAL: Deferred. LYMPHATIC: No lymphadenopathy noted in the neck. EXTREMITIES: No edema or cyanosis. No clubbing. MUSCULOSKELETAL: No acute joint deformities or swelling SKIN: There are no significant rashes or ecchymosis NEUROPSYCHIATRIC: The patient is alert and oriented x3. Appears to be in a good mood. No tremors or rigidity noted. Data 06/17/25 05:18 06/17/25 05:18 Other Labs: Laboratory Last Values WBC 6.79 10^3/uL (3.29-11.43) 06/17/25 05:18 RBC 2.89 10^6/uL (3.85-5.65) L 06/17/25 05:18 Hgb 9.10 g/dL (11.27-16.99) L 06/17/25 05:18 Hct 30.3 % (37-53) L 06/17/25 05:18 MCV 104.8 fl (82-101) H 06/17/25 05:18 MCH 31.5 pg (27-33) 06/17/25 05:18 MCHC 30.0 g/dL (30-55) 06/17/25 05:18 RDW 12.2 % (12.1-15.1) 06/17/25 05:18 Plt Count 254 10^3/cmm (157-399) 06/17/25 05:18 MPV 8.9 fL (7.4-10.4) 06/17/25 05:18 Neut % (Auto) 87.5 % 06/17/25 05:18 Lymph % (Auto) 6.6 % 06/17/25 05:18 King % (Auto) 4.9 % 06/17/25 05:18 Eos % (Auto) 0.0 % 06/17/25 05:18 Baso % (Auto) 0.1 % 06/17/25 05:18 Neut # (Auto) 5.94 10^3/uL (1.8-7.7) 06/17/25 05:18 Lymph # (Auto) 0.5 10^3/uL (0.8-4.8) L 06/17/25 05:18 King # (Auto) 0.3 10^3/uL (0.2-0.9) 06/17/25 05:18 Eos # (Auto) 0.0 10^3/uL (0.0-0.8) 06/17/25 05:18 Baso # (Auto) 0.0 10^3/uL (0.0-0.1) 06/17/25 05:18 Nucleated RBC % (auto) 0 % 06/17/25 05:18 Nucleated RBCs # 0.0 /100WBC 06/17/25 05:18 Specimen Type Arterial 06/14/25 03:05 Sample Site Brachial, right 06/14/25 03:05 ABG pH 7.29 (7.35-7.45) L 06/14/25 03:05 ABG pCO2 55.8 mmHg (35-45) H 06/14/25 03:05 ABG pO2 91.8 mmHg (80.0-100.0) 06/14/25 03:05 ABG HCO3 26.7 mmol/L (22-26) H 06/14/25 03:05 ABG Base Excess -0.7 mmol/L (-2.0-2.0) 06/14/25 03:05 Shalom Test N/a 06/14/25 03:05 Hematocrit 35.2 % (42-52) L 06/14/25 03:05 Hgb O2 Saturation 94.1 % (95-100) L 06/14/25 03:05 Carboxyhemoglobin 1.6 %THgb (0.4-20.1) 06/14/25 03:05 Methemoglobin 1.1 % (0.4-1.5) 06/14/25 03:05 Total Hemoglobin 11.5 g/dL (14-18) L 06/14/25 03:05 O2 Delivery Device Nc 06/14/25 03:05 O2 Liters/Min 3.0 % 06/14/25 03:05 Credit Operations Specialist ID [email or web address] 06/14/25 03:05 Sodium 145 mmol/L (136-145) 06/17/25 05:18 Potassium 3.9 mmol/L (3.5-5.1) 06/17/25 05:18 Chloride 110 mmol/L (98-107) H 06/17/25 05:18 Carbon Dioxide 29 mmol/L (22-29) 06/17/25 05:18 Anion Gap 9.9 (5-19) 06/17/25 05:18 BUN 31 mg/dL (8-23) H 06/17/25 05:18 Creatinine 0.8 mg/dL (0.7-1.2) 06/17/25 05:18 GFR Calculation Not Reportable 06/17/25 05:18 Glucose 138 mg/dL (65-115) H 06/17/25 05:18 Calculated Osmolality 309 mOsm/kg (285-295) H 06/17/25 05:18 Lactic Acid 1.6 mmol/L (0.5-2.2) 06/14/25 02:39 Calcium 7.7 mg/dL (8.5-10.5) L 06/17/25 05:18 Magnesium 1.7 mg/dL (1.7-2.3) 06/17/25 05:18 Total Bilirubin 0.3 mg/dL (0.15-1.2) 06/14/25 02:39 AST 40 U/L (0-40) 06/14/25 02:39 ALT 20 U/L (0-41) 06/14/25 02:39 Alkaline Phosphatase 115 U/L (40-130) 06/14/25 02:39 Troponin T 5th Gen ng/L 253 ng/L (0-15) H* 06/14/25 16:58 Troponin T Baseline 235 ng/L (0-15) H* 06/14/25 02:39 Troponin T 120 Minute 269.0 ng/L (0-15) H 06/14/25 04:34 Delta Troponin T 34.0 ABS# (0-10) H* 06/14/25 04:34 Troponin T Hi Sens 6Hr 275.9 ng/L (0-15) H 06/14/25 08:10 Troponin T Hi Sens 6Hr Delta 40.9 ng/L (0-12) H* 06/14/25 08:10 NT-Pro-B Natriuret Pep 5449 pg/mL (0-125) H 06/14/25 02:39 Total Protein 6.9 g/dL (6.6-8.7) 06/14/25 02:39 Albumin 3.7 g/dL (3.5-5.2) 06/14/25 02:39 Globulin 3.2 g/dL (1.3-4.6) 06/14/25 02:39 Triglycerides 72 mg/dL (0-150) 06/14/25 04:34 Cholesterol 107 mg/dL (0-200) 06/14/25 04:34 LDL Cholesterol, Calc 54 mg/dL (50-129) 06/14/25 04:34 HDL Cholesterol 39 mg/dL (60-100) L 06/14/25 04:34 LDL/HDL Ratio 1.38 RATIO (0.00-3.22) 06/14/25 04:34 Cholesterol/HDL Ratio 2.74 mg/dL (1.0-5.00) 06/14/25 04:34 TSH 0.08 uIU/mL (0.27-4.20) L 06/14/25 04:34 Free T4 1.47 ng/dL (0.82-1.77) 06/14/25 04:34 Influenza A (PCR) Negative (Negative) 06/14/25 03:02 Influenza Type B (PCR) Negative (Negative) 06/14/25 03:02 RSV (PCR) Negative (Negative) 06/14/25 03:02 SARS-CoV-2 (PCR) Negative (Negative) 06/14/25 03:02 A&P Assessment and plan 1. Elevated troponin: Patient has clinical features are consistent with a non-ST relation myocardial infarction. Plavix 600 mg p.o. now . continue ongoing medications. 2. Acute kidney injury: The BUN/creatinine seems to be coming down. 3. Abnormal EKG: Diffuse nonspecific ST-T changes, may suggest ischemia. The echocardiogram is unremarkable. 4. Community acquired pneumonia, unspecified laterality: Clinically seems to be improving. Management as per the primary attending. Patient is remaining afebrile. 5. Acute exacerbation of chronic obstructive airways disease: Patient seems to have evidence of pulmonary hypertension optimize bronchodilator treatment Plan: Other problems Mild anemia, The hemoglobin dropped to 9.1. Most likely this is from the IV hydration. He has no clinical evidence of any bleeding Generalized emaciation go ahead and do the cardiac catheterization today. In view of the patient is a abnormal kidney function, anemia, generalized emaciation, he carries a high risk for bleeding and procedure related complications. The risks and benefits were discussed in detail with the patient The risk of bleeding, hematoma, vascular injury, myocardial infarction, myocardial perforation, malignant cardiac arrhythmias ,CVA, renal failure and other concomitant complications were explained in detail. patient understood this well and consented to proceed. Based on the angiogram findings, further recommendations will be made PDMP PDMP Reviewed: Not Reviewed Attestations Medical Necessity Statement*: patient requires continued hospital stay for close monitoring and further management Coding Level of Care Code Acute Code for [facility] Fwd Diagnoses Elevated troponin R79.89 Acute kidney injury N17.9 Abnormal EKG R94.31 Community acquired pneumonia, unspecified laterality J18.9 Laterality: unspecified laterality Acute exacerbation of chronic obstructive airways disease J44.1
--- NOTE | 2025-06-17 11:07 | PM.PN ---
Subjective Subjective: Seeing patient again this morning in the cardiac stepdown unit, he complains that he did not understand why he is still in the hospital. Earlier this morning, he was taken to the Research Nurse Practitioner for a PCI. However, he was reported to have developed remarkable difficulty breathing on lying flat, and therefore having the procedure to be stopped. Speaking with Dr. Schmitt, the value advisor, he reported the patient had earlier declined the procedure, and only agreed after a somewhat persuasion. Shortly after, the nurse had informed me the patient had wanted to leave AGAINST MEDICAL ADVICE. But, apparently, he did not make up his mind to do that. Vitals/I&O/Wt Last Vital Signs Temp 98.1 F 06/17/25 08:15 Pulse 84 06/17/25 08:15 Resp 20 H 06/17/25 08:15 BP 125/65 06/17/25 08:15 Pulse Ox 99 06/17/25 08:15 O2 Del Method Nasal Cannula 06/17/25 08:15 O2 Flow Rate 2 06/17/25 05:26 FiO2 40 06/14/25 06:20 06/16/25 06/17/25 06/17/25 22:59 06:59 14:59 Intake Total 460 / 2348.75 1360 / 3708.75 570 / 570 Output Total 300 / 300 Balance 160 / 2048.75 1360 / 3408.75 570 / 570 Weight last 48 hrs Weight 65.408 kg Weight 62.233 kg Weight 63 kg Physical Exam Narrative: General: Awake and alert. Grumpy and minimally cooperative. Chest/Resp: Mild respiratory distress noted at rest. Severely decreased breath sounds bilaterally. CVS: Regular heart rate and rhythm. GI: Non-distended; No obvious organomegaly. Extremities: No obvious pitting pedal edema. Skin: No obvious new rashes or new skin lesions. Data 06/17/25 05:18 06/17/25 05:18 A&P Assessment and plan 1. Respiratory failure with hypoxia and hypercapnia: 2. Acute exacerbation of chronic obstructive airways disease: 3. Non-ST elevated myocardial infarction (non-STEMI): Plan: Patient is requiring more than 4 L of oxygen to keep oxygen saturation barely above 85% while at rest. He also is displaying remarkable difficulty breathing with mild exertion in bed. I am also curious about the report of orthopnea at the [facility] Nurse Practitioner. Recently, he did not have remarkable pedal edema as to suspect possible Left- & right sided congestive heart failure causing fluid retention. Echo followed this up with an echocardiogram, so also rule out possible pulmonary hypertension, etc. Consequently, I am going to get a CTA of the chest, and reassess later. Continue other ongoing treatment plans. PDMP PDMP Reviewed: Not Reviewed Attestations Medical Necessity Statement*: Patient is still very sick, and may require up to 2 more days. Coding Level of Care Code Acute Code for [facility] Fwd Diagnoses Respiratory failure with hypoxia and hypercapnia J96.91; J96.92 Acute exacerbation of chronic obstructive airways disease J44.1 Non-ST elevated myocardial infarction (non-STEMI) I21.4
--- NOTE | 2025-06-17 12:14 | PC.NURSE ---
Pt is getting frustrated and agitated Pt stated he wants to know what they are going to do next since. I can't lay flat in bed. I just want to go home. I alerted Dr Schmitt and Dr Gonsalez about pt's frustration and his frustration of not able to do the test today and the next plan. Per Dr Schmitt, he talked to hospitalist and suggested to see a [employer] cross executive director. Talked to Dr Gonsalez and he said he will come and speak to the pt. Pt stated, I am getting stressed out and shaking because they have not given my meds and i have not smoke. I educated pt to stop smoking, Pt stated, I will never stop smoking.
--- NOTE | 2025-06-17 14:24 | CTR_ITS ---
PROCEDURE INFORMATION: Exam: CTA Chest With Contrast Exam date and time: 06/17/2025 3:51 PM Age: 74 years old Clinical indication: Pain; Other: Hypoxia TECHNIQUE: Imaging protocol: Computed tomographic angiography of the chest with contrast. Exam focused on the arteries. 3D rendering (Not supervised by radiologist): MIP and/or 3D reconstructed images were created by the technologist. Radiation optimization: All CT scans at this facility use at least one of these dose optimization techniques: automated exposure control; mA and/or kV adjustment per patient size (includes targeted exams where dose is matched to clinical indication); or iterative reconstruction. Contrast material: [id number]; Contrast volume: 100 ml; Contrast route: INTRAVENOUS (IV); COMPARISON: CR (CHEST, ) 06/14/2025 2:50 AM RADIATION DOSE METRICS: Total DLP (mGy-cm): 323.4 FINDINGS: Pulmonary arteries: Normal. No pulmonary emboli. Aorta: Unremarkable. No aortic aneurysm. No aortic dissection. Lungs: Moderate centrilobular emphysema. There is consolidation with small cystic airspaces in the posterior basal segment of the right lower lobe. There is extensive mucous plugging in the right lower lobe posteriorly. Mild atelectasis at the left base posteriorly. Slight mucous plugging is seen in the left lower lobe. Pleural spaces: Trace left pleural effusion posteriorly. Heart: Unremarkable. No cardiomegaly. No pericardial effusion. Lymph nodes: Unremarkable. No enlarged lymph nodes. Bones/joints: Unremarkable. No acute fracture. Soft tissues: Unremarkable. CT/CT angio chest [id number] IMPRESSION: 1. No pulmonary emboli. Moderate emphysema. 2. Right lower lobe consolidation with extensive mucous plugging. Findings consistent with right lower lobe pneumonia and/or aspiration. 3. Slight mucous plugging in the left lower lobe with dependent atelectasis. Trace left pleural effusion. COMMENTS: The presence of pulmonary emphysema on CT is an independent risk factor for lung cancer. In the absence of a history or active diagnosis of lung cancer, it is recommended that this patient with emphysema be evaluated for enrollment in a low dose CT lung cancer screening program.
--- NOTE | 2025-06-17 15:02 | PC.NURSE ---
1340: I was approached by Rebecca Hillman, RN stating that patient was unable to lay in a supine position this morning for his cath and is now frustrated, stating that if nothing is going to be done then he doesn't understand why he needs to stay here and is considering leaving AMA. Timothy states that she attempted to call and speak with Dr. Gonsalez around 2 hours ago and he had said he was going to come and see the patient but hadn't yet. 1342: I called and attempted to reach Dr. Gonsalez through the boxer operator and she states there was no response, so she left a message. I sent him a VOALTE message and asked him to call when he could regarding this patient. 1423: I hadn't received a return call from Dr. Gonsalez so I called again through the boxer operator and was connected to him. I introduced myself and let him know I was helping out in [facility] and just wanted to ensure patient's concerns were being addressed after he was unable to lay flat during his procedure today. Dr. Gonsalez states that he rounded on patient around 1400 and explained everything to him and answered any questions he had. I verbalized understanding and thanked him for rounding on patient. No new orders received at this time. Timothy or I will f/u with the patient to ensure all questions/concerns are addressed.
[2025-06-17] MEDS: iohexol 350 mg/mL 500 mL Btl (per mL) IV (15:53)
[2025-06-18] VITALS (9 sets, daily range): BP systolic 119–151; BP diastolic 69–84; PULSE 75–87; RESP 18–24; TEMP 36.4–37.1; O2SAT 95–98
[2025-06-18 04:00] LABS: Hematocrit 32.3 % (37-53); Hemoglobin 9.80 g/dL (11.27-16.99); Mean Corpuscular HGB Conc 30.3 g/dL (30-55); Mean Corpuscular Hemoglobin 31.2 pg (27-33); Mean Corpuscular Volume 102.9 fl (82-101); Nucleated Red Blood Cells % 0 %; Platelet Count 274 10^3/cmm (157-399); Red Blood Count 3.14 10^6/uL (3.85-5.65); White Blood Count 8.89 10^3/uL (3.29-11.43)
[2025-06-18 04:32] LABS: Magnesium 1.7 mg/dL (1.7-2.3)
[2025-06-18 04:35] LABS: Anion Gap 8.8 (5-19); Blood Urea Nitrogen 27 mg/dL (8-23); Calcium 8.3 mg/dL (8.5-10.5); Carbon Dioxide 33 mmol/L (22-29); Chloride 104 mmol/L (98-107); Glucose 110 mg/dL (65-115); Osmolality Calculated 300 mOsm/kg (285-295); Potassium 3.8 mmol/L (3.5-5.1); Sodium 142 mmol/L (136-145)
[2025-06-18] MEDS: doxycycline 100 MG in sodium chloride 0.9% (plus) 100 ML IV ×2 (05:19→12:59)
--- NOTE | 2025-06-18 09:31 | P.DS_ITS ---
Discharge Providers Date of Admission: 06/14/25 04:25 Date of Discharge: June 18, 2025 Attending Provider at Admission: Bucky Castano DO Attending Provider at Discharge: Daren Gonsalez MD Diagnoses at Discharge Discharge Diagnosis 1. Acute on chronic respiratory failure with hypoxia and hypercapnia: 2. Non-ST elevated myocardial infarction (non-STEMI): 3. Healthcare associated bacterial pneumonia: 4. Acute exacerbation of chronic obstructive airways disease: Reason for Visit Reason for Visit: sob Brief History: Patient presented with worsening difficulty breathing. Thought to have COPD exacerbation, IV steroids plus DuoNeb orders were started. He was also started on IV antibiotics. Given findings of elevated troponins, NSTEMI was suspected. For this reason, cardiology was consulted. Echocardiogram was done, which was not significant. Attempt was made to get a PCI, but patient could not tolerate this because of apparent severe orthopnea. CTA of the chest done, which reveals no PE, but confirms right-sided pneumonia with some mucous plugging of the bronchi. Hospital Course Hospital Course For the last 24 hours, patient has returned back to his baseline. He was able to maintain oxygen saturations with 2 L of oxygen per minute. However, given concern for bronchial mucous plugging contributing to symptoms of severe orthopnea, pulmonolgy was consulted, who recommended starting patient on additional Augmentin upon discharge. See my discharge orders and discharge instructions for more details. Physical Exam Narrative: General: Awake and alert patient. Resp: Stable bilateral severe diminished breath sounds. Skin: No obvious rashes or new skin lesions. All other physical findings essentially within normal limits. l Discharge Data Studies Completed and Pending Completed Studies During Hospitalization Category Date Time Status CTA chest [CT angio chest [id number]] Routine Cat Scan 06/17/25 14:24 Completed XR chest 1V portable [id number] Stat Exams 06/14/25 02:45 Completed CV. echo complete* [id number] Routine Ultrasound 06/14/25 05:19 Completed Pending at discharge Category Date Time Status Basic Metabolic Panel AM LABS Lab 06/19/25 04:00 Ordered Blood Culture Stat Lab 06/14/25 02:58 Results Radiology Impressions Chest X-Ray 06/14/25 02:45 IMPRESSION: Small left pleural effusion. Chest CTA 06/17/25 14:24 1. No pulmonary emboli. Moderate emphysema. 2. Right lower lobe consolidation with extensive mucous plugging. Findings consistent with right lower lobe pneumonia and/or aspiration. 3. Slight mucous plugging in the left lower lobe with dependent atelectasis. Trace left pleural effusion. Vitals Last Vital Signs Temp 97.6 F 06/18/25 07:40 Pulse 77 06/18/25 07:40 Resp 21 H 06/18/25 07:40 BP 125/71 06/18/25 07:40 Pulse Ox 97 06/18/25 07:40 O2 Del Method Nasal Cannula 06/18/25 07:40 O2 Flow Rate 2 06/18/25 07:37 FiO2 40 06/14/25 06:20 Discharge Plan Discharge Patient Disposition: Xfer SNF Condition: Stable Prescriptions: New atorvastatin 40 mg Tablet 60 mg PO BEDTIME Qty: 30 2RF isosorbide mononitrate 30 mg Tablet Extended Release 24 Hr 30 mg PO DAILY Qty: 30 1RF metoprolol tartrate 25 mg Tablet 12.5 mg PO BID@0900,2100 Qty: 60 1RF prednisone 5 mg tablets,dose pack See Rx Instructions .ROUTE .COMPLEX Qty: 21 0RF Rx Instructions: prednisone 5 mg: take 8 tablets (40 mg) on Day 1; 7 tablets (35 mg) on Day 2; then decrease by 1 tablet every day until finished doxycycline hyclate 100 mg capsule 100 mg PO BID 10 Days Qty: 20 0RF aspirin 81 mg tablet 81 mg PO DAILY Qty: 90 3RF clopidogrel [Plavix] 75 mg tablet 75 mg PO DAILY Qty: 90 0RF amoxicillin-pot clavulanate 875-125 mg Tablet 1 tab PO BID Qty: 14 0RF guaifenesin [Mucinex] 600 mg Tablet Extended Release 12hr 600 mg PO BID Qty: 30 0RF Continued acetaminophen 325 mg Tablet 650 mg PO Q4H PRN (Reason: Pain) albuterol sulfate 2.5 mg /3 mL (0.083 %) solution for nebulization 2.5 mg inhalation Q4H loperamide [Imodium A-D] 2 mg Capsule 2 mg PO Q4H PRN (Reason: Constipation) Rx Instructions: administer after each loose stool until symptoms controlled; do not exceed 8 mg per 24 hrs cetirizine 5 mg Tablet 5 mg PO DAILY tacrolimus 0.1 % Ointment 1 applic TOPICAL BID clobetasol 0.05 % ointment 1 applic TOPICAL BID diclofenac sodium 1 % Gel 2 g TOPICAL TID Rx Instructions: apply to single elbow, wrist or hand; for hand includes palm/fingers/back of hand potassium chloride 8 mEq capsule, extended release 8 meq PO DAILY omeprazole 20 mg capsule,delayed release(DR/EC) 20 mg PO DAILY albuterol sulfate [Ventolin HFA] 90 mcg/actuation HFA aerosol inhaler 2 puff INHALATION Q4H PRN (Reason: Shortness Of Breath) tiotropium bromide [Spiriva with HandiHaler] 18 mcg capsule, w/inhalation device 1 cap INHALATION DAILY budesonide-formoterol [Symbicort] 160-4.5 mcg/actuation HFA aerosol inhaler 2 puff INHALATION BID Combivent Respimat 20-100 mcg/actuation mist 1 puff INHALATION QID PRN (Reason: Shortness Of Breath) bisacodyl 5 mg Tablet 10 mg PO DAILY PRN (Reason: Constipation) Administrative Staff Supervisor OK for DC: Cardiology Discharge Order = DC NOW: Discharge Order (Routine); Ordered 06/18/25 Ordered By: Daren Gonsalez Referrals: Ruben Shane MD [Physician, Pulmonology] - 06/21/25 1:00 pm Megan Bullock NP [Nurse Practitioner, Family Practice] - 06/22/25 3:00 pm Clara Erickson FNP [Nurse Practitioner, Cardiology] - 07/12/25 4:00 pm Discharge Diet: Advance as tolerated and Cardiac Discharge Activity: Resume usual activity and Increase activity as tolerated Patient Instructions: Aspiration, COPD, Metoprolol (By mouth), Doxycycline (By mouth), Prednisone (By mouth), Aspirin (By mouth), Guaifenesin (By mouth), Amoxicillin (By mouth), Isosorbide Mononitrate (By mouth), Atorvastatin (By mouth), Clopidogrel (By mouth), Acute Kidney Injury (DC), Aspiration Pneumonia (GEN), Aspiration Precautions (DC), Acute Respiratory Failure (GEN), High Troponin Levels (GEN), COPD Stoplight, Chest Pain Stoplight, Opioid Safety, Pneumonia Stoplight, Patient Portal & Maryellen Instructions Activity Restrictions/Additional Instructions: Follow-up with your primary care provider within the next 1 to 2 weeks. Follow-up with airline pilot flight instructor as directed Discharge Attestations Time Spent in Discharge Care*: greater than 30 min Quality Metrics Clinical Quality Measures [ No reported AMI, CVA or VTE this stay] Coding Level of Care Code Acute Code for Chg Fwd Diagnoses Acute on chronic respiratory failure with hypoxia and hypercapnia J96.21; J96.22 Chronicity: acute on chronic Non-ST elevated myocardial infarction (non-STEMI) I21.4 Healthcare associated bacterial pneumonia J15.9 Acute exacerbation of chronic obstructive airways disease J44.1
--- NOTE | 2025-06-18 11:22 | P.PN_ITS ---
Subjective 2 Subjective: The patient is feeling okay. He was scheduled for a cardiac cauterization today. Medications: Medication Review Details: Current Medications Acetaminophen (Acetaminophen 325 Mg Tablet) 650 mg PO Q6H PRN PRN Reason: Mild/Mod Pain Or Temp >/= 101 Last Admin: 06/17/25 21:27 Dose: 650 mg Albuterol/Ipratropium (Ipratropium-Albuterol 3 Ml Neb) 3 ml INHALATION Q4H.RESPIRATORY SONALI Last Admin: 06/18/25 07:36 Dose: 3 ml Aspirin (Aspirin 81 Mg Ec Tablet) 81 mg PO DAILY SONALI Last Admin: 06/18/25 05:20 Dose: 81 mg Atorvastatin Calcium (Atorvastatin 40 Mg Tablet) 60 mg PO BEDTIME SONALI Last Admin: 06/17/25 21:28 Dose: 60 mg Enoxaparin Sodium (Enoxaparin 60 Mg/0.6 Ml Syringe) 60 mg SUBCUT Q12H SONALI Last Admin: 06/18/25 05:20 Dose: 60 mg Doxycycline Hyclate 100 mg/ (Sodium Chloride) 100 mls @ 100 mls/hr IV Q12H [facility]; Protocol Last Infusion: 06/18/25 07:25 Dose: Infused Sodium Chloride (Sodium Chloride 0.9%) 1,000 mls @ 75 mls/hr IV .[id number] [facility] Last Admin: 06/17/25 18:06 Dose: Not Given Isosorbide Mononitrate (Isosorbide Mononitrate Er 30 Mg Tablet) 30 mg PO DAILY [facility] Last Admin: 06/18/25 05:20 Dose: 30 mg Metoprolol Tartrate (Metoprolol Tartrate 25 Mg Tablet) 12.5 mg PO BID@0900,2100 [facility] Last Admin: 06/18/25 08:54 Dose: 12.5 mg Ondansetron HCl (Ondansetron 2 Mg/Ml Sdv 2 Ml) 4 mg IVP Q6H PRN PRN Reason: vomiting, or N/V if npo Pantoprazole Sodium (Pantoprazole Dr 40 Mg Tablet) 40 mg PO DAILY [facility] Last Admin: 06/18/25 05:20 Dose: 40 mg Prednisone (Prednisone 20 Mg Tablet) 40 mg PO DAILY [facility] Last Admin: 06/18/25 05:20 Dose: 40 mg Vitals/I&O/Wt Last Vital Signs Temp 97.6 F 06/18/25 07:40 Pulse 77 06/18/25 07:40 Resp 21 H 06/18/25 07:40 BP 125/71 06/18/25 07:40 Pulse Ox 97 06/18/25 07:40 O2 Del Method Nasal Cannula 06/18/25 07:40 O2 Flow Rate 2 06/18/25 07:37 FiO2 40 06/14/25 06:20 06/17/25 06/18/25 06/18/25 22:59 06:59 14:59 Intake Total 100 / 910 918 / 1828 600 / 600 Balance 100 / 910 918 / 1828 600 / 600 Weight last 48 hrs Weight 149 lb 0.52 oz Weight 144 lb 3.2 oz Physical Exam 2 Narrative: GENERAL: The patient is alert and oriented times three. Not in any acute distress. Unkempt HEENT: No significant pallor, icterus or lymphadenopathy.Oral cavity: There are no mucous membrane lesions. NECK: Trachea appears to be central. No masses noted. No JVD or thyromegaly appreciated. RESPIRATORY: Chest is symmetrical. No intercostals muscle retraction or any accessory muscle activation. Breath sounds are heard bilaterally with a diminished intensity. Occasional coarse crackles. BREASTS: Deferred. HEART: The heart sounds are normal. No S3 or S4. No significant murmurs. No pericardial rub ABDOMEN: No vessel pulsations or distention. No tenderness. No organomegaly appreciated. Bowel sounds are normally heard. : Deferred. RECTAL: Deferred. LYMPHATIC: No lymphadenopathy noted in the neck. EXTREMITIES: No edema or cyanosis. No clubbing. MUSCULOSKELETAL: No acute joint deformities or swelling SKIN: There are no significant rashes or ecchymosis NEUROPSYCHIATRIC: The patient is alert and oriented x3. Appears to be in a good mood. No tremors or rigidity noted. Data 06/18/25 03:44 06/18/25 03:44 Other Labs: Laboratory Last Values WBC 8.89 10^3/uL (3.29-11.43) 06/18/25 03:44 RBC 3.14 10^6/uL (3.85-5.65) L 06/18/25 03:44 Hgb 9.80 g/dL (11.27-16.99) L 06/18/25 03:44 Hct 32.3 % (37-53) L 06/18/25 03:44 MCV 102.9 fl (82-101) H 06/18/25 03:44 MCH 31.2 pg (27-33) 06/18/25 03:44 MCHC 30.3 g/dL (30-55) 06/18/25 03:44 RDW 12.3 % (12.1-15.1) 06/18/25 03:44 Plt Count 274 10^3/cmm (157-399) 06/18/25 03:44 MPV 8.4 fL (7.4-10.4) 06/18/25 03:44 Neut % (Auto) 79.2 % 06/18/25 03:44 Lymph % (Auto) 13.2 % 06/18/25 03:44 Bulloch % (Auto) 6.0 % 06/18/25 03:44 Eos % (Auto) 0.1 % 06/18/25 03:44 Baso % (Auto) 0.0 % 06/18/25 03:44 Neut # (Auto) 7.05 10^3/uL (1.8-7.7) 06/18/25 03:44 Lymph # (Auto) 1.2 10^3/uL (0.8-4.8) 06/18/25 03:44 Bulloch # (Auto) 0.5 10^3/uL (0.2-0.9) 06/18/25 03:44 Eos # (Auto) 0.0 10^3/uL (0.0-0.8) 06/18/25 03:44 Baso # (Auto) 0.0 10^3/uL (0.0-0.1) 06/18/25 03:44 Nucleated RBC % (auto) 0 % 06/18/25 03:44 Nucleated RBCs # 0.0 /100WBC 06/18/25 03:44 Specimen Type Arterial 06/14/25 03:05 Sample Site Brachial, right 06/14/25 03:05 ABG pH 7.29 (7.35-7.45) L 06/14/25 03:05 ABG pCO2 55.8 mmHg (35-45) H 06/14/25 03:05 ABG pO2 91.8 mmHg (80.0-100.0) 06/14/25 03:05 ABG HCO3 26.7 mmol/L (22-26) H 06/14/25 03:05 ABG Base Excess -0.7 mmol/L (-2.0-2.0) 06/14/25 03:05 Shalom Test N/a 06/14/25 03:05 Hematocrit 35.2 % (42-52) L 06/14/25 03:05 Hgb O2 Saturation 94.1 % (95-100) L 06/14/25 03:05 Carboxyhemoglobin 1.6 %THgb (0.4-20.1) 06/14/25 03:05 Methemoglobin 1.1 % (0.4-1.5) 06/14/25 03:05 Total Hemoglobin 11.5 g/dL (14-18) L 06/14/25 03:05 O2 Delivery Device Nc 06/14/25 03:05 O2 Liters/Min 3.0 % 06/14/25 03:05 Rod Filler ID [email or web address] 06/14/25 03:05 Sodium 142 mmol/L (136-145) 06/18/25 03:44 Potassium 3.8 mmol/L (3.5-5.1) 06/18/25 03:44 Chloride 104 mmol/L (98-107) 06/18/25 03:44 Carbon Dioxide 33 mmol/L (22-29) H 06/18/25 03:44 Anion Gap 8.8 (5-19) 06/18/25 03:44 BUN 27 mg/dL (8-23) H 06/18/25 03:44 Creatinine 0.9 mg/dL (0.7-1.2) 06/18/25 03:44 GFR Calculation Not Reportable 06/18/25 03:44 Glucose 110 mg/dL (65-115) 06/18/25 03:44 Calculated Osmolality 300 mOsm/kg (285-295) H 06/18/25 03:44 Lactic Acid 1.6 mmol/L (0.5-2.2) 06/14/25 02:39 Calcium 8.3 mg/dL (8.5-10.5) L 06/18/25 03:44 Magnesium 1.7 mg/dL (1.7-2.3) 06/18/25 03:44 Total Bilirubin 0.3 mg/dL (0.15-1.2) 06/14/25 02:39 AST 40 U/L (0-40) 06/14/25 02:39 ALT 20 U/L (0-41) 06/14/25 02:39 Alkaline Phosphatase 115 U/L (40-130) 06/14/25 02:39 Troponin T 5th Gen ng/L 253 ng/L (0-15) H* 06/14/25 16:58 Troponin T Baseline 235 ng/L (0-15) H* 06/14/25 02:39 Troponin T 120 Minute 269.0 ng/L (0-15) H 06/14/25 04:34 Delta Troponin T 34.0 ABS# (0-10) H* 06/14/25 04:34 Troponin T Hi Sens 6Hr 275.9 ng/L (0-15) H 06/14/25 08:10 Troponin T Hi Sens 6Hr Delta 40.9 ng/L (0-12) H* 06/14/25 08:10 NT-Pro-B Natriuret Pep 5449 pg/mL (0-125) H 06/14/25 02:39 Total Protein 6.9 g/dL (6.6-8.7) 06/14/25 02:39 Albumin 3.7 g/dL (3.5-5.2) 06/14/25 02:39 Globulin 3.2 g/dL (1.3-4.6) 06/14/25 02:39 Triglycerides 72 mg/dL (0-150) 06/14/25 04:34 Cholesterol 107 mg/dL (0-200) 06/14/25 04:34 LDL Cholesterol, Calc 54 mg/dL (50-129) 06/14/25 04:34 HDL Cholesterol 39 mg/dL (60-100) L 06/14/25 04:34 LDL/HDL Ratio 1.38 RATIO (0.00-3.22) 06/14/25 04:34 Cholesterol/HDL Ratio 2.74 mg/dL (1.0-5.00) 06/14/25 04:34 TSH 0.08 uIU/mL (0.27-4.20) L 06/14/25 04:34 Free T4 1.47 ng/dL (0.82-1.77) 06/14/25 04:34 Influenza A (PCR) Negative (Negative) 06/14/25 03:02 Influenza Type B (PCR) Negative (Negative) 06/14/25 03:02 RSV (PCR) Negative (Negative) 06/14/25 03:02 SARS-CoV-2 (PCR) Negative (Negative) 06/14/25 03:02 A&P Assessment and plan 1. Elevated troponin: Patient has clinical features are consistent with a non-ST relation myocardial infarction. Seems to be tolerating the medications overall well. Currently he is on Plavix 75 mg p.o. daily 2. Acute kidney injury: The kidney function seems to be normalizing. 3. Abnormal EKG: Diffuse nonspecific ST-T changes, may suggest ischemia. The echocardiogram is unremarkable. 4. Community acquired pneumonia, unspecified laterality: Clinically seems to be improving. Management as per the primary attending. Patient is remaining afebrile. 5. Acute exacerbation of chronic obstructive airways disease: Patient seems to have evidence of pulmonary hypertension optimize bronchodilator treatment Plan: Other problems Mild anemia, The hemoglobin dropped to 9.1. Most likely this is from the IV hydration. He has no clinical evidence of any bleeding Generalized emaciation go ahead and do the cardiac catheterization today. In view of the patient is a abnormal kidney function, anemia, generalized emaciation, he carries a high risk for bleeding and procedure related complications. The risks and benefits were discussed in detail with the patient The risk of bleeding, hematoma, vascular injury, myocardial infarction, myocardial perforation, malignant cardiac arrhythmias ,CVA, renal failure and other concomitant complications were explained in detail. patient understood this well and consented to proceed. Based on the angiogram findings, further recommendations will be made PDMP PDMP Reviewed: Not Reviewed Attestations 2 Medical Necessity Statement*: Patient requires continued hospital stay for close monitoring and further management Coding Level of Care Code 22452 Diagnoses Elevated troponin R79.89 Acute kidney injury N17.9 Abnormal EKG R94.31 Community acquired pneumonia, unspecified laterality J18.9 Laterality: unspecified laterality Acute exacerbation of chronic obstructive airways disease J44.1
--- NOTE | 2025-06-18 13:48 | PC.NURSE ---
called rerecording mixer Speak to Dr Shane via telephone in regards to consultation from hospitalist. She told me that she will see the pt after clinic and to give her some time at least 2 hrs. Notified case mgt about the conversation and estimated time, case mgt stated that the alf will come and pick him up now, however, awaiting for pulmonary consultation prior to discharge per hospitalist.
--- NOTE | 2025-06-18 15:29 | PM.CONSULT ---
Providers/Reason For Consult Consulting Physician/Specialty*: Dr Gonsalez Reason for Consult*: pneumonia Attending Physician: Daren Gonsalez MD History of Present Illness History of Present Illness Yong Small is a 74 year old male with past medical history of copd, smoker gets admitted with cough, fever, progressive dyspnea non productive cough. He was treated with copd exacerbation with duonebs and steroids. Improved clinically but continued to have a chronic cough Aspirates sometimes he says on food and liquids Was pending an angiogram by cardiology today but could not complete it secondary to inability to lay flat and desaturation. Currently on 3L NC which is his baseline Says he doesnt feel too bad CT chest done showed some mucus plugging and RLL infiltates Medications/Allergies Home Medications ?Medication ?Instructions ?Recorded ?Confirmed ?Last Taken ?Type albuterol sulfate 90 mcg/actuation 2 puff inhalation Q4H PRN 03/18/23 06/14/25 05/30/25 History aerosol inhaler (Ventolin HFA) Shortness Of Breath budesonide-formoterol HFA 160 2 puff inhalation BID 03/18/23 06/14/25 06/13/25 20:00 History mcg-4.5 mcg/actuation aerosol inhaler (Symbicort) ipratropium 20 mcg-albuterol 100 1 puff inhalation QID PRN 03/18/23 06/14/25 06/13/25 19:00 History mcg/actuation mist for inhalation Shortness Of Breath (Combivent Respimat) omeprazole 20 mg capsule,delayed 20 mg PO DAILY 03/18/23 06/14/25 06/13/25 07:00 History release potassium chloride 8 mEq 8 meq PO DAILY 03/18/23 06/14/25 06/13/25 07:30 History capsule,extended release tiotropium bromide 18 mcg capsule 1 cap inhalation DAILY 03/18/23 06/14/25 06/13/25 10:00 History with inhalation device (Spiriva with HandiHaler) acetaminophen 325 mg tablet 650 mg PO Q4H PRN Pain 09/10/24 06/14/25 06/13/25 10:00 History albuterol sulfate 2.5 mg/3 mL 2.5 mg inhalation Q4H 09/10/24 06/14/25 06/13/25 19:55 History (0.083 %) solution for nebulization cetirizine 5 mg tablet 5 mg PO DAILY 09/10/24 06/14/25 06/13/25 07:00 History clobetasol 0.05 % topical ointment 1 applic topical BID 09/10/24 06/14/25 06/13/25 19:00 History diclofenac sodium 1 % topical gel 2 g topical TID 09/10/24 06/14/25 06/13/25 20:00 History loperamide 2 mg capsule (Imodium 2 mg PO Q4H PRN Constipation 09/10/24 06/14/25 Unknown History A-D) tacrolimus 0.1 % topical ointment 1 applic topical BID 09/10/24 06/14/25 06/08/25 History bisacodyl 5 mg tablet 10 mg PO DAILY PRN Constipation 06/14/25 06/14/25 Unknown History amoxicillin 875 mg-potassium 1 tab PO BID #14 tabs 06/18/25 Unknown Rx clavulanate 125 mg tablet aspirin 81 mg tablet 81 mg PO DAILY #90 tabs 06/18/25 Unknown Rx atorvastatin 40 mg tablet 60 mg (1.5 x 40 mg) PO BEDTIME #30 06/18/25 Unknown Rx tabs clopidogrel 75 mg tablet (Plavix) 75 mg PO DAILY #90 tabs 06/18/25 Unknown Rx doxycycline hyclate 100 mg capsule 100 mg PO BID 10 days #20 caps 06/18/25 Unknown Rx guaifenesin 600 mg tablet, 600 mg PO BID #30 tabs 06/18/25 Unknown Rx extended release 12 hr (Mucinex) isosorbide mononitrate 30 mg 30 mg PO DAILY #30 tabs 06/18/25 Unknown Rx tablet,extended release 24 hr metoprolol tartrate 25 mg tablet 12.5 mg (1/2 x 25 mg) PO 06/18/25 Unknown Rx BID@0900,2100 #60 tabs prednisone 5 mg tablets in a dose See Rx Instructions PO .COMPLEX 06/18/25 Unknown Rx pack #21 ea Allergies Allergy/AdvReac Type Severity Reaction Status Date / Time No Known Allergies Allergy Verified 03/17/23 20:48 Current Medications Generic Name Dose Route Start Last Admin Trade Name Freq PRN Reason Stop Dose Admin Acetaminophen 650 mg 06/14/25 05:19 06/17/25 21:27 Acetaminophen 325 Mg Tablet PO 650 mg Q6H PRN Administration Mild/Mod Pain Or Temp >/= 101 Albuterol/Ipratropium 3 ml 06/14/25 08:00 06/18/25 12:17 Ipratropium-Albuterol 3 Ml Neb INHALATION 3 ml Q4H.RESPIRATORY SONALI Administration Aspirin 81 mg 06/14/25 05:19 06/18/25 05:20 Aspirin 81 Mg Ec Tablet PO 81 mg DAILY SONALI Administration Atorvastatin Calcium 60 mg 06/14/25 21:00 06/17/25 21:28 Atorvastatin 40 Mg Tablet PO 60 mg BEDTIME SONALI Administration Enoxaparin Sodium 60 mg 06/14/25 16:00 06/18/25 05:20 Enoxaparin 60 Mg/0.6 Ml Syringe SUBCUT 60 mg Q12H SONALI Administration Doxycycline Hyclate 100 mg/ 100 mls @ 100 mls/hr 06/15/25 14:00 06/18/25 14:31 Sodium Chloride IV Infused Q12H SONALI Infusion Protocol Sodium Chloride 1,000 mls @ 75 mls/hr 06/16/25 00:45 06/17/25 18:06 Sodium Chloride 0.9% IV Not Given .[id number] SONALI Isosorbide Mononitrate 30 mg 06/14/25 05:19 06/18/25 05:20 Isosorbide Mononitrate Er 30 Mg Tablet PO 30 mg DAILY SONALI Administration Metoprolol Tartrate 12.5 mg 06/14/25 09:00 06/18/25 08:54 Metoprolol Tartrate 25 Mg Tablet PO 12.5 mg BID@0900,2100 SONALI Administration Pantoprazole Sodium 40 mg 06/14/25 05:19 06/18/25 05:[address] 40 Mg Tablet PO 40 mg DAILY SONALI Administration Prednisone 40 mg 06/16/25 13:35 06/18/25 05:20 Prednisone 20 Mg Tablet PO 40 mg DAILY SONALI Administration PFSH Acute PFSH: Medical History (Updated 06/18/25 @ 19:36 by Ruben Shane MD) Aspiration pneumonia History of smoking History of echocardiogram 2017 EF 65%, grade I/IV diastolic dysfunction COPD (chronic obstructive pulmonary disease) Surgical History No history of previous surgery Family History Mother CAD (coronary artery disease) Social History Smoking and tobacco/nicotine status: former use of tobacco/nicotine Alcohol intake: unknown Substance/Drug Use: unknown Additional social history: Lives in a house without running water, a neighbor brings him water. He has electricity. Household members: none Vitals/I&O/Wt Last Vital Signs Temp 98.7 F 06/18/25 11:54 Pulse 76 06/18/25 12:00 Resp 18 06/18/25 12:00 BP 119/72 06/18/25 11:54 Pulse Ox 96 06/18/25 12:00 O2 Del Method Nasal Cannula 06/18/25 12:00 O2 Flow Rate 2 06/18/25 12:00 FiO2 40 06/14/25 06:20 06/18/25 06/18/25 06/18/25 06:59 14:59 22:59 Intake Total 918 / 1828 700 / 700 Balance 918 / 1828 700 / 700 Weight last 48 hrs Weight 149 lb 0.52 oz Weight 144 lb 3.2 oz Physical Exam Narrative: Per RN General: alert, NAD frail appearing gentleman laying in bed HEENT: EOMI Pulmonary: Diminished breath sounds bilaterally Cardiovascular: rrr, nl s1s2, Abdomen: soft, nt, nd, no r/g, Extremities: no edema Neurologic: grossly intact Agree with above exam Data 06/18/25 03:44 06/18/25 03:44 A&P Assessment and plan 1. Aspiration pneumonia: 2. Acute exacerbation of chronic obstructive airways disease: Plan: # Aspiration episodes- most likely had tendency even prior to admission # Aspiration pneumonia with RLL mucus plugging -I reviewed the CT myself, interpretted findings independently and patient explained findings - WIll start cefdinir and mucinex # copd exacerbation - duonebs and steroids # chronic respiratory failure Thank you for the consult Please arrange follow up in clinic for the patient in 2-3 weeks. Will need a repeat CT chest Medical decision making level-high high MDM includes number and complexity of problems actively addressed during encounter, amount and/or complexity of data reviewed/ordered [ previous or external records, resulted lab(s)/test(s), ordered lab(s)/test(s), independent historian, independent test interpretation and other healthcare professional discussion] and described risk of complication, morbidity or mortality of management as documented This documentation was created by [employer] incident response specialist software (known for inherent incident response specialist error). Every effort was made to assure accuracy of incident response specialist. Any obvious errors or omissions should be clarified with the author of the document Telemedicine Consent Patient seen today via Telemedicine by agreement and consent of patient.? Telemedicine technology used during the visit includes audio and, as available, review of images.? The patient encounter is appropriate and reasonable under the circumstances given the patient?s particular presentation at this time.? The patient has been advised of the potential risks and limitations of this mode of treatment (including but not limited to the absence of in-person examination) and has agreed to be treated in a remote fashion in spite of them.? Any, and all, of the patient?s/patient?s family?s questions on this issue have been answered and I have made no promises or guarantees to the patient. PDMP PDMP Reviewed: Not Reviewed Coding Level of Care Code 02186 Diagnoses Aspiration pneumonia J69.0 Acute exacerbation of chronic obstructive airways disease J44.1
--- NOTE | 2025-06-18 16:00 | PC.NURSE ---
called hospitalist to inform him that [facility] has seen the pt and prescribed augmentin 875/125 bid for 7 days and mucinex 600 mg bid. Hospitalist will add these 2 new meds to his discharge list. Fax these new discharge med list and instructions to correction w/fax # provided from them.
--- NOTE | 2025-06-18 16:15 | PC.NURSE ---
[facility].
--- NOTE | 2025-06-18 16:54 | PC.NURSE ---
mehnazer rosario is here to pick him up. called [facility] to let them know that pt is on his way there.
== END 2025-06-18 16:57 | disposition intermediate care facility (04) | DRG 280 ==
LOC: ER 04:24 → CSU 04:40
PROVIDERS: Internal Medicine Cardiovascular Disease; Admitting Provider Internal Medicine; Emergency Provider Emergency Medicine; Visit Provider Family Medicine
DX: I21.4 Non-ST elevation (NSTEMI) myocardial infarction (principal); J69.0 Pneumonitis due to inhalation of food and vomit; J96.21 Acute and chronic respiratory failure with hypoxia; J96.22 Acute and chronic respiratory failure with hypercapnia; J44.1 Chronic obstructive pulmonary disease with (acute) exacerbation; N17.9 Acute kidney failure, unspecified; R64 Cachexia; Z99.81 Dependence on supplemental oxygen; J30.2 Other seasonal allergic rhinitis; E87.5 Hyperkalemia; D64.9 Anemia, unspecified; K21.9 Gastro-esophageal reflux disease without esophagitis; Z79.51 Long term (current) use of inhaled steroids; Z87.891 Personal history of nicotine dependence; Z82.49 Family history of ischemic heart disease and other diseases of the circulatory system; I27.20 Pulmonary hypertension, unspecified; Z68.24 Body mass index [BMI] 24.0-24.9, adult; Z53.09 Procedure and treatment not carried out because of other contraindication
CPT/HCPCS: 36415; 36600; 71045; 71275; 80048; 80053; 80061; 82805; 83605; 83735; 83880; 84439; 84443; 84484; 85025; 87040; 87637; 93005; 93306; 94640; 94660; 96365; 96372; 96375; 97161; 97167; 97530; 99291; J1644; J1650; J1938; J2250; J2543; J2919; J3010; J3490; J7030; J7512; J9999

== ENCOUNTER → 2025-06-21 13:07 | Outpatient (BNVA) | payer MEDICARE, MEDICAID, SELFPAY | PROVIDERS: Visit Provider Internal Medicine | DX: J44.9 Chronic obstructive pulmonary disease, unspecified (principal); J18.9 Pneumonia, unspecified organism; J69.0 Pneumonitis due to inhalation of food and vomit; Z99.81 Dependence on supplemental oxygen; F17.200 Nicotine dependence, unspecified, uncomplicated; J90 Pleural effusion, not elsewhere classified | CPT/HCPCS: 99214; Q3014 ==

== ENCOUNTER → 2025-07-12 15:47 | Outpatient (BNVA) | payer MEDICARE, MEDICAID, SELFPAY | PROVIDERS: Visit Provider Nurse Practitioner Family | DX: I25.10 Atherosclerotic heart disease of native coronary artery without angina pectoris (principal); I25.2 Old myocardial infarction; J43.9 Emphysema, unspecified; J69.0 Pneumonitis due to inhalation of food and vomit; F17.200 Nicotine dependence, unspecified, uncomplicated | CPT/HCPCS: 99214 ==